=== PATIENT | male | born 1975 | race Two or more races ===

== ENCOUNTER 2023-12-01 10:08 | Outpatient (OUT) | payer OTHER, SELFPAY ==
--- NOTE | 2023-12-01 10:19 | ECG_ITS ---
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
== END 2023-12-01 10:09 | disposition home or self-care (01) ==
LOC: PST 10:15
PROVIDERS: PCP Internal Medicine; Visit Provider Orthopaedic Surgery
DX: Z01.810 Encounter for preprocedural cardiovascular examination (principal); G56.01 Carpal tunnel syndrome, right upper limb
CPT/HCPCS: 93005

== ENCOUNTER 2023-12-04 11:48 | Day surgery (SDC) | payer OTHER, SELFPAY ==
[2023-12-01 10:43] VITALS: BP 152/84; PULSE 79; RESP 16; TEMP 36.2; O2SAT 96; BMI 42.6
[2023-12-04 11:59] VITALS: BP 176/77; PULSE 69; RESP 16; TEMP 36.2; O2SAT 99; BMI 42.5
--- OUTSIDE RECORDS SUMMARY | 2023-12-04 12:00 | XMS_ITS | CCD ---
Author Name Unknown Address [address] [place] [id number] Organization [facility] Care Team Providers Care [employer] Sergeant Name Role Phone Caleb Winn Primary Care Physician UnavailJuventino Allen Unavailable Unavailable Mary Ellen Agrawal Primary Care Physician Nadine Lucia, Chauncey Cesar Primary Care Physician Unavail able Pa, Caleb Perry Primary Care Physician Unavaila yvrose Mayorga, Chauncey Beth Primary Care Physician Kody Mayorga, Chauncey Beth Primary Care Physician Giselav dannyable Pa, Caleb Perry Primary Care Physician Unavaila yvrose Mayorga, Chauncey Beth Primary Care Physician Kody Winn, Caleb Perry Primary Care Physician Unavaila yvrose Winn, Caleb Perry Primary Care Physician Unavaila yvrose Winn, Caleb Perry Primary Care Physician Unavaila yvrose Quintana, Shea Live Unavailable Unavailable Ray, Shea Live Primary Care Physician Unavailab le Ray, Shea Live Primary Care Physician Unavailab le Ray, Shea Live Primary Care Physician Unavailab le Ray, Shea Live Primary Care Physician Unavailab le Ray, Shea Live Primary Care Physician Unavailab le Ray, Shea Live Primary Care Physician Unavailab le Ray, Shea Live Primary Care Physician Unavailab le Ray, Shea Live Primary Care Physician Unavailab le Maraino JUAREZ, Shea [place] Primary Care Unavailab radha WATKINS, Sophia Brambila Attending Davin Quintana MD, Shea [place] Primary Care Unavailab radha WATKINS, Sophia Brambila Attending Unavaila yvrose WATKINS, Sophia Brambila Attending Davin Quintana MD, Shea [place] Primary Care UnavailChani Combs Primary Care Physician Nadine chen Allergies Allergy Classification Reported Allergen(s) Allergy Type Date of Onset Reaction(s) Facility Penicillins (antibiotic) (1 source) Penicillins Drug Allergy [facility] (20 sources) Penicillins Allergy to substance (disorder) [facility] (5 sources) atorvastatin; Translations: [Lipitor] Drug Allergy myalgia [facility] (1 source) Penicillin; Translations: [penicillin] Drug Allergy [facility] Repository Medications Completed/Discontinued Medications Medication Drug Class(es) Dates Sig (Normalized) Sig (Original) allopurinol 300 mg oral tablet (20 sources) Xanthine Oxidase Inhibitor Start: 06-14-2023 take 1 tablet by mouth once daily allopurinol 300 mg tablet 06/14/2023 take 1 tablet (300 mg) by oral route once daily Start: 04-18-2022 take 1 tablet by alejandra th once daily allopurinol 300 mg tablet 04/18/2022 take 1 tablet (300 mg) by oral route once daily Start: 07-02-2021 take [address] [facility] twice daily allopurinol 100 mg tablet 07/02/2021 take 2 tablets (200 mg) by oral route 2 times per day Start: 05-06-2020 take 1 tablet by alejandra th once daily allopurinol 300 mg oral tablet 05/06/2020 take 1 tablet (300 mg) by oral route once daily Start: 01-08-2020 take 1 tablet by alejandra th once daily allopurinol 300 mg oral tablet 01/08/2020 take 1 tablet (300 mg) by oral route once daily Start: 11-20-2015 End: 09-01-2017 take 1 tablet by mouth once daily allopurinol 300 mg oral tablet 11/20/2015 09/01/2017 take 1 tablet (300 mg) by oral route once daily End: 01-06-2014 take 1 tablet by mouth once daily allopurinol 300 mg oral tablet 01/06/2014 take 1 tablet (300 mg) by oral route once daily PT HASN'T BEEN TAKING atorvastatin 40 mg oral tablet (20 sources) HMG-CoA Reductase Inhibitor End: 01-06-2014 take 1 tablet by mouth once daily Lipitor 40 mg oral tablet 01/06/2014 take 1 tablet (40 mg) by oral route once daily PT HASN'T BEEN TAKING cephalexin 500 mg oral capsule (20 sources) Cephalosporin Antibacterial Start: 12-16-2016 End: 09-01-2017 take 1 capsule by mouth three times daily Keflex 500 mg oral capsule 12/16/2016 09/01/2017 take 1 capsule by oral route 3 times a day ciprofloxacin 500 mg oral tablet (20 sources) Quinolone Antimicrobial Start: 06-05-2013 End: 06-12-2013 take 1 tablet by mouth every twelve hours Cipro 500 mg oral tablet 06/05/2013 06/12/2013 take 1 tablet (500 mg) by oral route every 12 hours for 7 days clobetasol propionate 0.5 mg/ml topical cream (6 sources) Corticosteroid Start: 06-26-2023 clobetasol 0.05 % topical cream 06/26/2023 apply a thin layer to the affected area(s) by topical route 2 times per day Start: 06-24-2022 clobetasol 0.0 5 % topical cream 06/24/2022 apply a thin layer to the affected area(s) by topical route 2 times per day colesevelam hydrochloride 3750 mg powder for oral suspension (13 sources) Bile Acid Sequestrant Start: 06-19-2020 End: 07-02-2021 take 120-240 mL by mouth once daily WelChol 3.75 gram oral powder in packet 06/19/2020 07/02/2021 take 1 packet (3.75 gram) dissolved in 120 to 240ml of water; stir and drink by oral route once daily with a meal for 30 days pt stopped per self escitalopram 10 mg oral tablet (20 sources) Serotonin Reuptake Inhibitor Start: 06-26-2023 take 1 tablet by mouth once daily escitalopram 10 mg tablet 06/26/2023 take 1 tablet by oral route daily Start: 06-24-2022 take 1 tablet by alejandra th once daily escitalopram 10 mg tablet 06/24/2022 take 1 tablet by oral route daily Start: 04-18-2022 take 1 tablet by alejandra th once daily escitalopram 5 mg tablet 04/18/2022 take 1 tablet (5 mg) by oral route once daily Start: 11-20-2015 End: 05-18-2016 take 1 tablet by mouth once daily Lexapro 10 mg oral tablet 11/20/2015 05/18/2016 take 1 tablet (10 mg) by oral route once daily for 30 days fenofibrate 160 mg oral tablet (10 sources) Peroxisome Proliferator Receptor alpha Agonist Start: 07-02-2021 End: 04-18-2022 take 1 tablet by mouth once daily fenofibrate 160 mg tablet 07/02/2021 04/18/2022 take 1 tablet (160 mg) by oral route once daily fluticasone propionate 0.5 mg/ml topical cream (20 sources) Corticosteroid Start: 06-26-2019 End: 06-19-2020 fluticasone propionate 0.05 % topical cream 06/26/2019 06/19/2020 apply to affected skinfolds by topical route QD for two weeks then weekends only Disp 60 Gram Tube halobetasol propionate 0.0005 mg/mg topical ointment (20 sources) Corticosteroid Start: 06-26-2019 End: 06-19-2020 halobetasol propionate 0.05 % topical ointment 06/26/2019 06/19/2020 apply a thin layer to the affected elbows and hands by topical route once daily for two weeks then weekends only Disp 50 Gram Tube indomethacin 50 mg oral capsule (20 sources) Nonsteroidal Anti-inflammatory Drug Start: 01-09-2017 End: 01-23-2017 take 1 capsule by mouth three times daily at mealtime indomethacin 50 mg oral capsule 01/09/2017 01/23/2017 take 1 capsule (50 mg) by oral route 3 times per day with food for 7 days Start: 03-17-2014 End: 04-28-2014 take 1 capsule by mouth once daily as needed indomethacin 50 mg oral capsule 03/17/2014 04/28/2014 one daily for 7 days as needed for gout flare meloxicam 15 mg oral tablet (20 sources) Nonsteroidal Anti-inflammatory Drug Start: 06-19-2020 End: 12-16-2020 take 1 tablet by mouth once daily meloxicam 15 mg oral tablet 06/19/2020 12/16/2020 take 1 tablet (15 mg) by oral route once daily for 30 days Start: 12-12-2019 End: 06-09-2020 take 1 tablet by mouth once daily meloxicam 15 mg oral tablet 12/12/2019 06/09/2020 take 1 tablet (15 mg) by oral route once daily for 30 days Start: 09-18-2019 End: 11-17-2019 take 1 tablet by mouth once daily meloxicam 15 mg oral tablet 09/18/2019 11/17/2019 take 1 tablet (15 mg) by oral route once daily for 30 days Start: 11-20-2015 End: 12-07-2016 take 1 tablet by mouth once daily Mobic 15 mg oral tablet 11/20/2015 12/07/2016 take 1 tablet (15 mg) by oral route once daily for 30 days methylPREDNISolone 4 mg oral tablet (12 sources) Corticosteroid Start: 08-27-2020 End: 02-22-2021 Medrol (Jorge) 4 mg oral tablets,dose pack 08/27/2020 02/22/2021 take by oral route as directed per package instructions omeprazole 40 mg delayed release oral capsule (20 sources) Proton Pump Inhibitor Start: 11-20-2015 End: 12-07-2016 take 1 capsule by mouth once daily before mealtime omeprazole 40 mg oral capsule,delayed release(DR/EC) 11/20/2015 12/07/2016 take 1 capsule (40 mg) by oral route once daily before a meal Start: 02-19-2015 End: 11-20-2015 take 2 capsules by mouth once daily omeprazole 20 mg oral capsule,delayed release(DR/EC) 02/19/2015 11/20/2015 TAKE TWO CAPSULES BY MOUTH EVERY DAY dose change End: 06-19-2020 take 1 tablet by mouth once daily Prilosec OTC 20 mg oral tablet,delayed release (DR/EC) 06/19/2020 take 1 tablet by oral route daily pimecrolimus 10 mg/ml topical cream (20 sources) Calcineurin Inhibitor Immunosuppressant Start: 06-26-2019 End: 06-19-2020 Elidel 1 % topical cream 06/26/2019 06/19/2020 apply a thin layer to the affected eyelids by topical route 2 times per day ; rub in gently and completely Disp 30 Gram Tube pravastatin sodium 10 mg oral tablet (5 sources) HMG-CoA Reductase Inhibitor Start: 06-26-2023 take 1 tablet by mouth once daily at bedtime pravastatin 10 mg tablet 06/26/2023 take 1 tablet (10 mg) by oral route once daily at bedtime Start: 08-04-2022 take 1 tablet by alejandra th once daily at bedtime pravastatin 10 mg tablet 08/04/2022 take 1 tablet (10 mg) by oral route once daily at bedtime rosuvastatin calcium 5 mg oral tablet (20 sources) HMG-CoA Reductase Inhibitor Start: 12-06-2017 End: 12-01-2018 take 1 tablet by mouth once daily Crestor 5 mg oral tablet 12/06/2017 12/01/2018 take 1 tablet (5 mg) by oral route once daily for 30 days Start: 11-20-2015 End: 09-01-2017 take 1 tablet by mouth once daily Crestor 5 mg oral tablet 11/20/2015 09/01/2017 TAKE ONE TABLET BY MOUTH ONCE A DAY Start: 01-06-2014 End: 03-17-2014 take 1 tablet by mouth once daily Crestor 5 mg oral tablet 01/06/2014 03/17/2014 take 1 tablet (5 mg) by oral route once daily for 30 days sulfamethoxazole 800 mg / trimethoprim 160 mg oral tablet (20 sources) Dihydrofolate Reductase Inhibitor Antibacterial, Sulfonamide Antimicrobial Start: 12-07-2016 End: 12-17-2016 take 1 tablet by mouth twice daily Bactrim DS 800-160 mg oral tablet 12/07/2016 12/17/2016 take 1 tablet by oral route 2 times per day for 10 days venlafaxine 75 mg oral tablet (20 sources) Serotonin and Norepinephrine Reuptake Inhibitor Start: 12-13-2020 End: 07-02-2021 take 1 capsule by mouth once daily at mealtime VENLAFAXINE HCL ER 75 MG CAP 12/13/2020 07/02/2021 TAKE ONE CAPSULE BY MOUTH DAILY WITH FOOD Start: 03-13-2020 End: 05-06-2020 take 1 capsule by mouth once daily at mealtime Effexor XR 37.5 mg oral capsule,extended release 24hr 03/13/2020 05/06/2020 take 1 capsule (37.5 mg) by oral route once daily with food 1 week then incr to 75mg Start: 03-13-2020 End: 10-17-2020 take 1 capsule by mouth once daily at mealtime Effexor XR 75 mg oral capsule,extended release 24hr 06/19/2020 10/17/2020 take 1 capsule (75 mg) by oral route once daily with food for 30 days Problems Active Problems Problem Classification Problem Date Documented Da te Episodic/Chronic Adjustment disorders (12 sources) Reaction to severe stress, unspecified Onset: 03-13-2020 Chronic Anxiety disorders (20 sources) Anxiety state, unspecified; Translations: [Anxiety disorder, unspecified] Onset: 11-20-2015 Chronic Diabetes mellitus without complication (11 sources) Type 2 diabetes mellitus; Translations: [Diabetes mellitus without mention of complication, type II or unspecified type, not stated as uncontrolled] Onset: 06-26-2023 Chronic Disorders of lipid metabolism (20 sources) Hyperlipidemia; Translations: [Other and unspecified hyperlipidemia] Onset: 01-03-2014 Chronic Esophageal disorders (20 sources) Esophageal reflux Onset: 01-06-2014 Chronic Gout and other crystal arthropathies (20 sources) Gout, unspecified; Translations: [Gout] Onset: 01-06-2014 Chronic Mood disorders (15 sources) Depressive disorder, not elsewhere classified; Translations: [Major depressive disorder, single episode, unspecified] Onset: 03-13-2020 Chronic Other connective tissue disease (13 sources) Pain in left arm Onset: 11-20-2015 Episodic Other connective tissue disease (1 source) Pain in right arm Onset: 11-01-2023 Episodic Other inflammatory condition of skin (20 sources) Other psoriasis Onset: 10-13-2014 Chronic Other inflammatory condition of skin (20 sources) Psoriasis, unspecified Onset: 06-26-2019 Chronic Other inflammatory condition of skin (6 sources) Psoriasis; Translations: [Other psoriasis] Onset: 06-24-2022 Chronic Other nervous system disorders (1 source) Other disturbances of skin sensation Onset: 11-01-2023 Episodic Other nutritional; endocrine; and metabolic disorders (14 sources) Body Mass Index 40.0-44.9, adult Onset: 02-21-2019 Chronic Other nutritional; endocrine; and metabolic disorders (20 sources) Obesity, unspecified Onset: 10-13-2014 Chronic Other nutritional; endocrine; and metabolic disorders (20 sources) Body mass index (BMI) 40.0-44.9, adult Onset: 02-21-2019 Chronic Other nutritional; endocrine; and metabolic disorders (20 sources) Obesity, unspecified Onset: 06-19-2019 Chronic Past or Other Problems Problem Classification Problem Date Documented Date Episodic/Chronic Administrative/social admission (4 sources) Other psychological or physical stress, not elsewhere classified Onset: 03-13-2020 Episodic Allergic reactions (20 sources) Contact dermatitis and other eczema, unspecified cause; Translations: [Unspecified contact dermatitis, unspecified cause] Onset: 09-27-2017 Episodic Diabetes mellitus without complication (20 sources) Impaired fasting glycemia; Translations: [Impaired fasting glucose] Onset: 01-13-2022 Episodic Mood disorders (1 source) Major depressive disorder, single episode, unspecified Onset: 03-13-2020 Other circulatory disease (10 sources) Nevus, non-neoplastic Onset: 06-26-2019 Episodic Other circulatory disease (12 sources) Nevus, non-neoplastic Onset: 06-26-2019 Episodic Other connective tissue disease (14 sources) Pain in limb Onset: 11-20-2015 Episodic Other connective tissue disease (12 sources) Personal history of other diseases of the musculoskeletal system and connective tissue Onset: 02-22-2021 Episodic Other lower respiratory disease (4 sources) Other respiratory abnormalities Onset: 03-13-2020 Episodic Other lower respiratory disease (20 sources) Snoring Onset: 03-13-2020 Episodic Other non-traumatic joint disorders (20 sources) Effusion of joint, site unspecified Onset: 03-17-2014 Episodic Other non-traumatic joint disorders (20 sources) Pain in joint, lower leg Onset: 03-17-2014 Episodic Other non-traumatic joint disorders (16 sources) Effusion of joint, lower leg Onset: 09-18-2019 Episodic Other non-traumatic joint disorders (20 sources) Pain in unspecified knee Onset: 09-01-2017 Episodic Other non-traumatic joint disorders (12 sources) Pain in unspecified joint Onset: 02-22-2021 Episodic Other non-traumatic joint disorders (20 sources) Pain in right knee Onset: 09-18-2019 Episodic Other non-traumatic joint disorders (20 sources) Effusion, unspecified knee Onset: 09-18-2019 Episodic Other upper respiratory infections (20 sources) Acute maxillary sinusitis; Translations: [Acute maxillary sinusitis, unspecified] Onset: 12-07-2016 Episodic Residual codes; unclassified (12 sources) Sleep disorder, unspecified Onset: 02-22-2021 Episodic Results Test Name Value Interpretation Reference Range Facility Sleep Medicine Office/Clinic Noteon 10-23-2023 Sleep Medicine Office/Clinic Note Chief Complaint Routine CPAP follow up History of Present Illness Patient is a pleasant 48-year-old male who presents for routine CPAP follow-up with a diagnosis of chronic obstructive sleep apnea. He reports no issues with his machine or settings at this time. He is using a fullface mask without significant leakage. Patient is in bed around 11 PM, falling asleep within minutes and waking up at 6:30 AM feeling refreshed. He denies any nighttime awakenings. A clinical polysomnogram, 01/20/2010, established a significant degree of ABDIAZIZ with an overall AHI: 6.4, supine AHI 118.6, REM AHI: 16.5 and an oxygen desaturation of 84%. AMITA ZHENG Summary Report Date of : 1975 Setup Date: 04/01/2021 Donato DreamStation 2 Auto CPAP Care Eyelet Punch Operator Download 07/24/2023 - 10/21/2023 DreamStation 2 Auto CPAP Advanced [id number] Compliance Information 07/24/2023 - 10/21/2023 Compliance Summary 07/24/2023 - 10/21/2023 (90 days) Days with Device Usage 90 days Days without Device Usage 0 days Percent Days with Device Usage 100.0% Cumulative Usage 30 days 20 hrs. 48 mins. 6 secs. Maximum Usage (1 Day) 10 hrs. 56 mins. 55 secs. Average Usage (All Days) 8 hrs. 13 mins. 52 secs. Average Usage (Days Used) 8 hrs. 13 mins. 52 secs. Minimum Usage (1 Day) 4 hrs. 42 mins. 13 secs. Percent of Days with Usage >= 4 Hours 100.0% Percent of Days with Usage < 4 Hours 0.0% Date Range Total Blower Time 30 days 20 hrs. 56 mins. 31 secs. Average AHI 0.6 Auto-CPAP Summary Auto-CPAP Mean Pressure 7.0 cmH2O Auto-CPAP Peak Average Pressure 9.6 cmH2O Device Pressure <= 90% of Time 8.9 cmH2O Average Time in Large Leak Per Day 1 secs. Device Settings as of 10/21/2023 AutoCPAP - None Device Settings Device Mode Parameter Value Min Pressure 6 cmH2O Max Pressure 14 cmH2O Auto Off Off Auto On On Ramp+ Time 15 minutes Ramp+ Start Pressure 4.0 cmH2O Clearly is using CPAP adherently and with benefit [place]on Sleep Scale Sitting and Reading : Slight chance of dozing Watching TV : Slight chance of dozing Sitting Inactive in a Public Place : No chance of dozing Car Passenger For an Hour No Break : Slight chance of dozing Lying Down in Afternoon When Circumstances Permit : No chance of dozing Sitting and Talking to Someone : No chance of dozing Sitting Quiet After Lunch No Alcohol : No chance of dozing Stopped in Traffic For a Few Minutes : No chance of dozing Total A[place]on Sleepiness Scale Score : 3 [1] Review of Systems Constitutional symptoms: None Eyes: Without recent change in visual acuity Ears: Without hearing loss Nose/sinuses/throat: Without nasal or sinus congestion Cardiovascular: Without angina or palpitations Respiratory: Without cough, wheezing or dyspnea Gastrointestinal: Appetite is good, bowel habits are regular, and there is no complaints of reflux Genitourinary: Without dysuria or hematuria Neurologic: Without recurrent headaches or paresthesias Musculoskeletal: Without arthralgias or myalgias Hematologic: Without history of bleeding or anemia Dermatologic: Without complaint of rash or skin irritations Psychiatric: Well-adjusted at this stage of life Physical Exam Vitals & Measurements HR: 74 (Peripheral) RR: 19 BP: 133/78 SpO2: 95 HT: 169 cm WT: 119.9 kg WT: 119.9 kg (Dosing) BMI: 41.98 Patient is a pleasant, well-developed, well-nourished 48-year-old male who is not hypersomnolent during this exam Head: Normocephalic Eyes: PERRLA Ears: Symmetrical, canals patent Nose: Symmetrical, nares patent, nasal passages clear Throat: Low-lying soft palate and large dorsum of tongue. Mallampati class IV, Sarah class IV Neck: Symmetrical, supple, without adenopathy or thyroid enlargement Heart: Regular rate and rhythm Lungs: Clear to auscultation without crackles, rhonchi or wheezing Abdomen: Appears benign Extremities: Without cyanosis, clubbing, or significant edema Neurologic: Without lateralizing signs as the patient ambulates in the room Musculoskeletal: Endomorphic Dermatologic: No rashes on exposed surfaces Additional Vitals No qualifying data available. Assessment/Plan 1. ABDIAZIZ (obstructive sleep apnea) Improved on CPAP with excellent patient compliance and good clinical response. Patient is encouraged to continue wearing CPAP as prescribed on current settings. Follow-up in 1 year Medical Decision Making Chronic conditions NOT treated during this visit that affected my overall medical decision making: [none] Treatment plans discussed but not opted for at this time: [none] Prescribed medication that requires intensive monitoring for toxicity: [n/a] I have reviewed the patient?s medication list for medication interactions/contrai ndications and/or for upcoming procedures: [yes or no] Time Spent with the Patient I have personally spent [18] minutes on this date, directly related to today's patient vi (more content not included)... Normal [facility] Laboratory - Chemistry and C hemistry - challengeon 10-03-2023 Albumin [Mass/Vol] 4.50 g/dL Invalid Interpretation Code 3.7-5.0 [facility] Albumin/Globulin [Mass ratio] 1.5 {ratio} Invalid Interpretation Code 1.0-2.4 [facility] ALP [Catalytic activity/Vol] 48.0 U/L Invalid Interpretation Code 31-155 [facility] ALT [Catalytic activity/Vol] 21.0 U/L Invalid Interpretation Code 0-50 [facility] Anion gap [Moles/Vol] 12 mmol/L Invalid Interpretation Code 10-20 [facility] AST [Catalytic activity/Vol] 18.0 U/L Invalid Interpretation Code 0-40 [facility] Bilirubin [Mass/Vol] 0.70 mg/dL Invalid Interpretation Code 0.0-1.0 [facility] Calcium [Mass/Vol] 9.40 mg/dL Invalid Interpretation Code 8.5-10.8 [facility] Chloride [Moles/Vol] 99.0 mmol/L Invalid Interpretation Code 100-112 [facility] CO2 [Moles/Vol] 31.0 mmol/L Invalid Interpretation Code 23-30 [facility] Creatinine [Mass/Vol] 1.10 mg/dL Invalid Interpretation Code 0.5-1.5 [facility] Glucose [Mass/Vol] 130.0 mg/dL Invalid Interpretation Code 80-117 [facility] Potassium [Moles/Vol] 4.0 mmol/L Invalid Interpretation Code 3.5-5.3 [facility] Protein [Mass/Vol] 7.50 g/dL Invalid Interpretation Code 6.3-7.9 [facility] Sodium [Moles/Vol] 138.0 mmol/L Invalid Interpretation Code 135-148 [facility] Urea nitrogen [Mass/Vol] 16.0 mg/dL Invalid Interpretation Code 7-25 [facility] Urea nitrogen/Creatinin e [Mass ratio] 15 mg/mg Invalid Interpretation Code 6-20 [facility] Laboratory - Hematology and Cell countson 10-03-2023 HbA1c (Bld) [Mass fraction] 7.20 % Invalid Interpretation Code 4.3-6.3 [facility] No Panel Informationon 10-03 160.0 mg/dL Invalid Interpretation Code [facility] 82 Invalid Interpretation Code [facility] No Panel Informationon 06-22 Tobacco smoking status Non-Smoker Invalid Interpretation Code [facility] Laboratory - Chemistry and C hemistry - challengeon 06-21-2023 Albumin [Mass/Vol] 4.20 g/dL Invalid Interpretation Code 3.7-5.0 [facility] Albumin/Globulin [Mass ratio] 1.4 {ratio} Invalid Interpretation Code 1.0-2.4 [facility] ALP [Catalytic activity/Vol] 52.0 U/L Invalid Interpretation Code 31-155 [facility] ALT [Catalytic activity/Vol] 37.0 U/L Invalid Interpretation Code 0-50 [facility] Anion gap [Moles/Vol] 18 mmol/L Invalid Interpretation Code 10-20 [facility] AST [Catalytic activity/Vol] 31.0 U/L Invalid Interpretation Code 0-40 [facility] Bilirubin [Mass/Vol] 0.80 mg/dL Invalid Interpretation Code 0.0-1.0 [facility] Bilirubin Ql (U) Negative Invalid Interpretation Code Negative [employer] [facility] [employer] Calcium [Mass/Vol] 9.20 mg/dL Invalid Interpretation Code 8.5-10.8 [facility] Chloride [Moles/Vol] 99.0 mmol/L Invalid Interpretation Code 100-112 [facility] Cholesterol [Mass/Vol] 231.0 mg/dL Invalid Interpretation Code 0-200 [facility] Cholesterol in HDL [Mass/Vol] 34.0 mg/dL Invalid Interpretation Code 36-100 [facility] Cholesterol in LDL [Mass/Vol] 125.0 mg/dL Invalid Interpretation Code 0-130 [facility] Cholesterol in VLDL [Mass/Vol] 72.0 mg/dL Invalid Interpretation Code 0-39 [facility] Cholesterol.total/ Cholesterol in HDL [Mass ratio] 7 {ratio} Invalid Interpretation Code [facility] CO2 [Moles/Vol] 24.0 mmol/L Invalid Interpretation Code 23-30 [facility] Creatinine [Mass/Vol] 1.0 mg/dL Invalid Interpretation Code 0.5-1.5 [facility] Glucose [Mass/Vol] 180.0 mg/dL Invalid Interpretation Code 80-117 [facility] Ketones Ql (U) Negative Invalid Interpretation Code Negative [facility] pH (U) 5 [pH] Invalid Interpretation Code 5.0-9.0 [employer] [facility] [employer] Potassium [Moles/Vol] 4.10 mmol/L Invalid Interpretation Code 3.5-5.3 [facility] Protein [Mass/Vol] 7.30 g/dL Invalid Interpretation Code 6.3-7.9 [facility] Sodium [Moles/Vol] 137.0 mmol/L Invalid Interpretation Code 135-148 [facility] Specific gravity (U) [Rel density] 1.030 Invalid Interpretation Code 1.003-1.030 [facility] Triglyceride [Mass/Vol] 358.0 mg/dL Invalid Interpretation Code 30-150 [facility] Urea nitrogen [Mass/Vol] 19.0 mg/dL Invalid Interpretation Code 7-25 [facility] Urea nitrogen/Creatinin e [Mass ratio] 19 mg/mg Invalid Interpretation Code 6-20 [facility] Urobilinogen (U) [Mass/Vol] normal Invalid Interpretation Code normal [facility] - Hematology and Cell countson 06-21-2023 Erythrocyte distribution width (RBC) [Ratio] 12.80 % Invalid Interpretation Code 11.5-15.5 [facility] HbA1c (Bld) [Mass fraction] 8.50 % Invalid Interpretation Code 4.3-6.3 [facility] Hematocrit (Bld) [Volume fraction] 44.50 % Invalid Interpretation Code 37.8-51.0 [facility] Hemoglobin (Bld) [Mass/Vol] 15.40 g/dL Invalid Interpretation Code 12.6-17.0 [facility] Hemoglobin Ql (U) Negative Invalid Interpretation Code Negative [facility] MCH (RBC) [Entitic mass] 28.40 pg Invalid Interpretation Code 25.7-33.8 [facility] MCHC (RBC) [Mass/Vol] 34.60 g/dL Invalid Interpretation Code 32.0-36.0 [facility] MCV (RBC) [Entitic vol] 82.0 fL Invalid Interpretation Code 81.0-100.2 [facility] Platelet mean volume (Bld) [Entitic vol] 9.50 fL Invalid Interpretation Code 8.3-11.5 [facility] Platelets (Bld) [#/Vol] 220.0 10*3/uL Invalid Interpretation Code 150-400 [facility] RBC (Bld) [#/Vol] 5.430 10*6/uL Invalid Interpretation Code 4.34-5.61 [facility] WBC (Bld) [#/Vol] 5.80 10*3/uL Invalid Interpretation Code 3.9-10.3 [facility] Laboratory - Specimen inform ationon 06-21-2023 Clarity (U) Clear Invalid Interpretation Code Clear [facility] Collection time (Aylse) [Date/time] 8:10am Invalid Interpretation Code [facility] Color (U) vicente Invalid Interpretation Code yellow [facility] - Urinalysison Glucose Test strip (U) [Mass/Vol] Negative Invalid Interpretation Code Negative [facility] Leukocyte esterase Test strip Ql (U) Negative Invalid Interpretation Code Negative [facility] Nitrite Ql (U) Negative Invalid Interpretation Code Negative [facility] Protein Ql (U) 1+ Invalid Interpretation Code Negative [facility] No Panel Informationon 06-21 92 Invalid Interpretation Code [facility] 0-4 Invalid Interpretation Code 0-4 [facility] 2+ Invalid Interpretation Code slight [facility] Trace Invalid Interpretation Code none [facility] 197.0 mg/dL Invalid Interpretation Code [facility] No Panel Informationon 12-26 Body mass index (BMI) [Percentile] Per age and sex 0.1 {percentile} Invalid Interpretation Code [facility] [id number] Per age and sex 0.1 {percentile} Invalid Interpretation Code [facility] - Chemistry and C hemistry - challengeon 12-19-2022 Anion gap [Moles/Vol] 16 mmol/L Invalid Interpretation Code 10-20 [facility] Calcium [Mass/Vol] 9.40 mg/dL Invalid Interpretation Code 8.5-10.8 [facility] Chloride [Moles/Vol] 101.0 mmol/L Invalid Interpretation Code 100-112 [facility] Cholesterol [Mass/Vol] 215.0 mg/dL Invalid Interpretation Code 0-200 [facility] Cholesterol in HDL [Mass/Vol] 36.0 mg/dL Invalid Interpretation Code 36-100 [facility] Cholesterol in LDL [Mass/Vol] 126.0 mg/dL Invalid Interpretation Code 0-130 [facility] Cholesterol in VLDL [Mass/Vol] 53.0 mg/dL Invalid Interpretation Code 0-39 [facility] Cholesterol.total/ Cholesterol in HDL [Mass ratio] 6 {ratio} Invalid Interpretation Code [facility] CO2 [Moles/Vol] 29.0 mmol/L Invalid Interpretation Code 23-30 [facility] Creatinine [Mass/Vol] 1.0 mg/dL Invalid Interpretation Code 0.5-1.5 [facility] GFR/1.73 sq M.predicted among non-blacks MDRD (S/P/Bld) [Vol rate/Area] 79 mL/min/{1.73_m2} Invalid Interpretation Code [facility] Glucose [Mass/Vol] 124.0 mg/dL Invalid Interpretation Code 80-117 [facility] Potassium [Moles/Vol] 4.30 mmol/L Invalid Interpretation Code 3.5-5.3 [facility] Sodium [Moles/Vol] 142.0 mmol/L Invalid Interpretation Code 135-148 [facility] Triglyceride [Mass/Vol] 264.0 mg/dL Invalid Interpretation Code 30-150 [facility] Urea nitrogen [Mass/Vol] 17.0 mg/dL Invalid Interpretation Code 7-25 [facility] Urea nitrogen/Creatinin e [Mass ratio] 17 mg/mg Invalid Interpretation Code 6-20 [facility] - Hematology and Cell countson 12-19-2022 HbA1c (Bld) [Mass fraction] 6.60 % Invalid Interpretation Code 4.3-6.3 [facility] No Panel Informationon 12-19 143.0 mg/dL Invalid Interpretation Code [facility] Sleep Medicine Office/Clinic Noteon 11-02-2022 Sleep Medicine Office/Clinic Note Chief Complaint Routine CPAP follow up History of Present Illness Patient is a pleasant 47-year-old male presents for routine CPAP follow-up with a diagnosis of chronic obstructive sleep apnea. He reports no issues with his machine or settings at this time. He is using a full facemask without significant leakage. Patient is in bed around 10:30-11 PM, falling asleep within minutes and waking up at 7 AM feeling refreshed. He denies any nighttime awakenings. A clinical polysomnogram, 01/20/2010, established a significant degree of ABDIAZIZ with an overall AHI: 6.4 (supine AHI 118.6), REM AHI: 16.5 and an oxygen desaturation of 84%. AMITA ZHENG Summary Report Date of : 1975 Setup Date: 04/01/2021 [employer] DreamStation 2 Advanced CPAP Care Eyelet Punch Operator Download DreamStation 2 Auto CPAP Advanced [id number] ([id number]) [id number] Compliance Information 08/04/2022 - 11/01/2022 Compliance Summary 08/04/2022 - 11/01/2022 (90 days) Days with Device Usage 89 days Days without Device Usage 1 day Percent Days with Device Usage 98.9% Cumulative Usage 32 days 20 hrs. 18 mins. 58 secs. Maximum Usage (1 Day) 11 hrs. 49 mins. 29 secs. Average Usage (All Days) 8 hrs. 45 mins. 32 secs. Average Usage (Days Used) 8 hrs. 51 mins. 26 secs. Minimum Usage (1 Day) 4 hrs. 24 mins. 36 secs. Percent of Days with Usage >= 4 Hours 98.9% Percent of Days with Usage < 4 Hours 1.1% Date Range Total Blower Time 32 days 22 hrs. 6 mins. 12 secs. Average AHI 0.9 Auto-CPAP Summary Auto-CPAP Mean Pressure 8.0 cmH2O Auto-CPAP Peak Average Pressure 11.0 cmH2O Device Pressure <= 90% of Time 10.4 cmH2O Average Time in Large Leak Per Day 9 secs. Device Settings as of 11/01/2022 AutoCPAP - None Device Settings Device Mode Parameter Value Min Pressure 6 cmH2O Max Pressure 14 cmH2O Clearly is using CPAP with benefit. [place] Sleep Scale Sitting and Reading : No chance of dozing Watching TV : Slight chance of dozing Sitting Inactive in a Public Place : No chance of dozing Car Passenger For an Hour No Break : Moderate chance of dozing Lying Down in Afternoon When Circumstances Permit : Slight chance of dozing Sitting and Talking to Someone : No chance of dozing Sitting Quiet After Lunch No Alcohol : Slight chance of dozing Stopped in Traffic For a Few Minutes : No chance of dozing Total [place] Sleepiness Scale Score 2 : 5 [1] Review of Systems Constitutional symptoms: None Eyes: Without recent change in visual acuity Ears: Without hearing loss Nose/sinuses/throat: Without complaint of hoarseness, nasal or sinus congestion Cardiovascular: Without angina or palpitations Respiratory: Without cough, wheezing, sputum or dyspnea Gastrointestinal: Appetite is good, bowel habits are regular, and there is no complaints of reflux Genitourinary: Without dysuria or hematuria Neurologic: Without recurrent headaches, chronic pain or paresthesias Musculoskeletal: Without arthralgias or myalgias Endocrine: Without polydipsia or polyuria Hematologic: Without history of bleeding or anemia Immunologic: Without chronic or recurrent infection Dermatologic: Without complaint of rash or skin irritations Psychiatric: Well-adjusted at this stage of life Physical Exam Vitals & Measurements HR: 65 (Peripheral) RR: 17 BP: 127/86 SpO2: 95 HT: 170 cm WT: 119.9 kg WT: 119.9 kg (Dosing) BMI: 41.49 Patient is a pleasant, well-developed, well-nourished 47-year-old male who is not hypersomnolent during this exam Head: Normocephalic Eyes: PERRLA Ears: Symmetrical, canals patent Nose: Symmetrical, nares patent, nasal passages clear Throat: Low-lying soft palate and large dorsum of tongue. Mallampati class IV, Sarah class IV Neck: Symmetrical, supple, without adenopathy or thyroid enlargement Heart: Regular rate and rhythm Lungs: Clear to auscultation without crackles, rhonchi or wheezing Abdomen: Appears benign Extremities: Without cyanosis, clubbing, or significant edema Neurologic: Without lateralizing signs as the patient ambulates in the room Musculoskeletal: Endomorphic Dermatologic: No rashes on exposed surfaces Additional Vitals BP Position/Location: Sitting, Left arm Assessment/Plan 1. ABDIAZIZ (obstructive sleep apnea) Improved on CPAP with excellent patient compliance and good response. Patient is encouraged to continue wearing CPAP as prescribed on current settings. Follow-up in 1 year. Medical Decision Making Chronic conditions NOT treated during this visit that affected my overall medical decision making: [none] Treatment plans discussed but not opted for at this time: [none] Prescribed medication that requires intensive monitoring for toxicity: [n/a] I have reviewed the patient?s medication list for medication interactions/contrai ndications and/or for upcoming procedures: [yes] Time Spent with the Patient I have personally spent [18] minutes on this date, direct (more content not included)... Normal [facility] Laboratory - Chemistry and C hemistry - challengeon 07-13-2022 Albumin [Mass/Vol] 4.30 g/dL Invalid Interpretation Code 3.7-5.0 [facility] Albumin/Globulin [Mass ratio] 1.4 {ratio} Invalid Interpretation Code 1.0-2.4 [facility] ALP [Catalytic activity/Vol] 50.0 U/L Invalid Interpretation Code 31-155 [facility] ALT [Catalytic activity/Vol] 32.0 U/L Invalid Interpretation Code 0-50 [facility] Anion gap [Moles/Vol] 13 mmol/L Invalid Interpretation Code 10-20 [facility] AST [Catalytic activity/Vol] 23.0 U/L Invalid Interpretation Code 0-40 [facility] Bilirubin [Mass/Vol] 0.40 mg/dL Invalid Interpretation Code 0.0-1.0 [facility] Calcium [Mass/Vol] 9.20 mg/dL Invalid Interpretation Code 8.5-10.8 [facility] Chloride [Moles/Vol] 101.0 mmol/L Invalid Interpretation Code 100-112 [facility] Cholesterol [Mass/Vol] 238.0 mg/dL Invalid Interpretation Code 0-200 [facility] Cholesterol in HDL [Mass/Vol] 37.0 mg/dL Invalid Interpretation Code 36-100 [facility] Cholesterol in LDL [Mass/Vol] 160.0 mg/dL Invalid Interpretation Code 0-130 [facility] Cholesterol in VLDL [Mass/Vol] 41.0 mg/dL Invalid Interpretation Code 0-39 [facility] Cholesterol.total/ Cholesterol in HDL [Mass ratio] 6 {ratio} Invalid Interpretation Code [facility] CO2 [Moles/Vol] 28.0 mmol/L Invalid Interpretation Code 23-30 [facility] Creatinine [Mass/Vol] 1.0 mg/dL Invalid Interpretation Code 0.5-1.5 [facility] GFR/1.73 sq M.predicted among non-blacks MDRD (S/P/Bld) [Vol rate/Area] 80 mL/min/{1.73_m2} Invalid Interpretation Code [facility] Glucose [Mass/Vol] 116.0 mg/dL Invalid Interpretation Code 80-117 [facility] Potassium [Moles/Vol] 4.20 mmol/L Invalid Interpretation Code 3.5-5.3 [facility] Protein [Mass/Vol] 7.30 g/dL Invalid Interpretation Code 6.3-7.9 [facility] Sodium [Moles/Vol] 138.0 mmol/L Invalid Interpretation Code 135-148 [facility] Triglyceride [Mass/Vol] 204.0 mg/dL Invalid Interpretation Code 30-150 [facility] Urea nitrogen [Mass/Vol] 16.0 mg/dL Invalid Interpretation Code 7-25 [facility] Urea nitrogen/Creatinin e [Mass ratio] 16 mg/mg Invalid Interpretation Code 6-20 [facility] Laboratory - Hematology and Cell countson 07-13-2022 Erythrocyte distribution width (RBC) [Ratio] 12.80 % Invalid Interpretation Code 11.5-15.5 [facility] HbA1c (Bld) [Mass fraction] 6.30 % Invalid Interpretation Code 4.3-6.3 [facility] Hematocrit (Bld) [Volume fraction] 44.40 % Invalid Interpretation Code 37.8-51.0 [facility] Hemoglobin (Bld) [Mass/Vol] 15.30 g/dL Invalid Interpretation Code 12.6-17.0 [facility] MCH (RBC) [Entitic mass] 28.70 pg Invalid Interpretation Code 25.7-33.8 [facility] MCHC (RBC) [Mass/Vol] 34.50 g/dL Invalid Interpretation Code 32.0-36.0 [facility] MCV (RBC) [Entitic vol] 83.10 fL Invalid Interpretation Code 81.0-100.2 [facility] Platelet mean volume (Bld) [Entitic vol] 9.70 fL Invalid Interpretation Code 8.3-11.5 [facility] Platelets (Bld) [#/Vol] 207.0 10*3/uL Invalid Interpretation Code 150-400 [facility] RBC (Bld) [#/Vol] 5.340 10*6/uL Invalid Interpretation Code 4.34-5.61 [facility] WBC (Bld) [#/Vol] 5.50 10*3/uL Invalid Interpretation Code 3.9-10.3 [facility] No Panel Informationon 07-13 134.0 mg/dL Invalid Interpretation Code [facility] Laboratory - Chemistry and C hemistry - challengeon 06-20-2022 Albumin [Mass/Vol] 4.50 g/dL Invalid Interpretation Code 3.7-5.0 [facility] Albumin/Globulin [Mass ratio] 1.8 {ratio} Invalid Interpretation Code 1.0-2.4 [facility] ALP [Catalytic activity/Vol] 48.0 U/L Invalid Interpretation Code 31-155 [facility] ALT [Catalytic activity/Vol] 35.0 U/L Invalid Interpretation Code 0-50 [facility] Anion gap [Moles/Vol] 15 mmol/L Invalid Interpretation Code 10-20 [facility] AST [Catalytic activity/Vol] 27.0 U/L Invalid Interpretation Code 0-40 [facility] Bilirubin [Mass/Vol] 0.50 mg/dL Invalid Interpretation Code 0.0-1.0 [facility] Bilirubin Ql (U) Negative Invalid Interpretation Code Negative [facility] Calcium [Mass/Vol] 9.10 mg/dL Invalid Interpretation Code 8.5-10.8 [facility] Chloride [Moles/Vol] 99.0 mmol/L Invalid Interpretation Code 100-112 [facility] Cholesterol [Mass/Vol] 251.0 mg/dL Invalid Interpretation Code 0-200 [facility] Cholesterol in HDL [Mass/Vol] 36.0 mg/dL Invalid Interpretation Code 36-100 [facility] Cholesterol in LDL [Mass/Vol] 158.0 mg/dL Invalid Interpretation Code 0-130 [facility] Cholesterol in VLDL [Mass/Vol] 57.0 mg/dL Invalid Interpretation Code 0-39 [facility] Cholesterol.total/ Cholesterol in HDL [Mass ratio] 7 {ratio} Invalid Interpretation Code [facility] CO2 [Moles/Vol] 28.0 mmol/L Invalid Interpretation Code 23-30 [facility] Creatinine [Mass/Vol] 1.0 mg/dL Invalid Interpretation Code 0.5-1.5 [facility] GFR/1.73 sq M.predicted among non-blacks MDRD (S/P/Bld) [Vol rate/Area] 80 mL/min/{1.73_m2} Invalid Interpretation Code [facility] Glucose [Mass/Vol] 114.0 mg/dL Invalid Interpretation Code 80-117 [facility] Ketones Ql (U) Negative Invalid Interpretation Code Negative [facility] pH (U) 6 [pH] Invalid Interpretation Code 5.0-9.0 [facility] Potassium [Moles/Vol] 4.40 mmol/L Invalid Interpretation Code 3.5-5.3 [facility] Protein [Mass/Vol] 7.0 g/dL Invalid Interpretation Code 6.3-7.9 [facility] Sodium [Moles/Vol] 138.0 mmol/L Invalid Interpretation Code 135-148 [facility] Specific gravity (U) [Rel density] 1.025 Invalid Interpretation Code 1.003-1.030 [facility] Triglyceride [Mass/Vol] 285.0 mg/dL Invalid Interpretation Code 30-150 [facility] Urea nitrogen [Mass/Vol] 15.0 mg/dL Invalid Interpretation Code 7-25 [facility] Urea nitrogen/Creatinin e [Mass ratio] 15 mg/mg Invalid Interpretation Code 6-20 [facility] Urobilinogen (U) [Mass/Vol] normal Invalid Interpretation Code normal [facility] Laboratory - Hematology and Cell countson 06-20-2022 Erythrocyte distribution width (RBC) [Ratio] 13.50 % Invalid Interpretation Code 11.5-15.5 [facility] Hematocrit (Bld) [Volume fraction] 44.60 % Invalid Interpretation Code 37.8-51.0 [facility] Hemoglobin (Bld) [Mass/Vol] 14.90 g/dL Invalid Interpretation Code 12.6-17.0 [facility] Hemoglobin Ql (U) Negative Invalid Interpretation Code Negative [facility] MCH (RBC) [Entitic mass] 28.10 pg Invalid Interpretation Code 25.7-33.8 [facility] MCHC (RBC) [Mass/Vol] 33.40 g/dL Invalid Interpretation Code 32.0-36.0 [facility] MCV (RBC) [Entitic vol] 84.20 fL Invalid Interpretation Code 81.0-100.2 [facility] Platelet mean volume (Bld) [Entitic vol] 9.20 fL Invalid Interpretation Code 8.3-11.5 [facility] Platelets (Bld) [#/Vol] 222.0 10*3/uL Invalid Interpretation Code 150-400 [facility] RBC (Bld) [#/Vol] 5.30 10*6/uL Invalid Interpretation Code 4.34-5.61 [facility] WBC (Bld) [#/Vol] 5.50 10*3/uL Invalid Interpretation Code 3.9-10.3 [facility] - Specimen inform ationon 06-20-2022 Clarity (U) clear Invalid Interpretation Code Clear [facility] Collection time (Alyse) [Date/time] 8:30am Invalid Interpretation Code [facility] Color (U) yellow Invalid Interpretation Code yellow [facility] - Urinalysison Glucose Test strip (U) [Mass/Vol] Negative Invalid Interpretation Code Negative [facility] Leukocyte esterase Test strip Ql (U) Negative Invalid Interpretation Code Negative [facility] Nitrite Ql (U) Negative Invalid Interpretation Code Negative [facility] Protein Ql (U) Negative Invalid Interpretation Code Negative [facility] - Chemistry and C hemistry - challengeon 01-07-2022 Albumin [Mass/Vol] 4.70 g/dL Invalid Interpretation Code 3.7-5.0 [facility] Albumin/Globulin [Mass ratio] 1.9 {ratio} Invalid Interpretation Code 1.0-2.4 [facility] ALP [Catalytic activity/Vol] 54.0 U/L Invalid Interpretation Code 31-155 [facility] ALT [Catalytic activity/Vol] 33.0 U/L Invalid Interpretation Code 0-50 [facility] Anion gap [Moles/Vol] 18 mmol/L Invalid Interpretation Code 10-20 [facility] AST [Catalytic activity/Vol] 30.0 U/L Invalid Interpretation Code 0-40 [facility] Bilirubin [Mass/Vol] 0.60 mg/dL Invalid Interpretation Code 0.0-1.0 [facility] Calcium [Mass/Vol] 9.40 mg/dL Invalid Interpretation Code 8.5-10.8 [facility] Chloride [Moles/Vol] 99.0 mmol/L Invalid Interpretation Code 100-112 [facility] Cholesterol [Mass/Vol] 213.0 mg/dL Invalid Interpretation Code 0-200 [facility] Cholesterol in HDL [Mass/Vol] 33.0 mg/dL Invalid Interpretation Code 36-100 [facility] Cholesterol in LDL [Mass/Vol] 129.0 mg/dL Invalid Interpretation Code 0-130 [facility] Cholesterol in VLDL [Mass/Vol] 51.0 mg/dL Invalid Interpretation Code 0-39 [facility] Cholesterol.total/ Cholesterol in HDL [Mass ratio] 6 {ratio} Invalid Interpretation Code [facility] CO2 [Moles/Vol] 27.0 mmol/L Invalid Interpretation Code 23-30 [facility] Creatinine [Mass/Vol] 1.20 mg/dL Invalid Interpretation Code 0.5-1.5 [facility] GFR/1.73 sq M.predicted among non-blacks MDRD (S/P/Bld) [Vol rate/Area] 65 mL/min/{1.73_m2} Invalid Interpretation Code [email or web address] Glucose [Mass/Vol] 125.0 mg/dL Invalid Interpretation Code 80-117 [email or web address] Potassium [Moles/Vol] 4.10 mmol/L Invalid Interpretation Code 3.5-5.3 [facility] Protein [Mass/Vol] 7.20 g/dL Invalid Interpretation Code 6.3-7.9 [facility] Sodium [Moles/Vol] 140.0 mmol/L Invalid Interpretation Code 135-148 [email or web address] Triglyceride [Mass/Vol] 253.0 mg/dL Invalid Interpretation Code 30-150 [facility] Urea nitrogen [Mass/Vol] 16.0 mg/dL Invalid Interpretation Code 7-25 [facility] Urea nitrogen/Creatinin e [Mass ratio] 13 mg/mg Invalid Interpretation Code 6-20 [facility] Laboratory - Chemistry and C hemistry - challengeon 06-18-2021 Albumin [Mass/Vol] 4.60 g/dL Invalid Interpretation Code 3.7-4.5 [facility] Albumin/Globulin [Mass ratio] 1.6 {ratio} Invalid Interpretation Code 1.0-2.4 [facility] ALP [Catalytic activity/Vol] 46.0 U/L Invalid Interpretation Code 31-155 [facility] ALT [Catalytic activity/Vol] 20.0 U/L Invalid Interpretation Code 0-50 [facility] Anion gap [Moles/Vol] 16 mmol/L Invalid Interpretation Code 10-20 [facility] AST [Catalytic activity/Vol] 15.0 U/L Invalid Interpretation Code 0-40 [facility] Bilirubin [Mass/Vol] 0.80 mg/dL Invalid Interpretation Code 0.0-1.0 [facility] Bilirubin Ql (U) Negative Invalid Interpretation Code Negative [facility] Calcium [Mass/Vol] 9.60 mg/dL Invalid Interpretation Code 8.5-10.8 [facility] Chloride [Moles/Vol] 102.0 mmol/L Invalid Interpretation Code 100-112 [facility] Cholesterol [Mass/Vol] 238.0 mg/dL Invalid Interpretation Code 0-200 [facility] Cholesterol in HDL [Mass/Vol] 38.0 mg/dL Invalid Interpretation Code 36-100 [facility] Cholesterol in VLDL [Mass/Vol] 84.0 mg/dL Invalid Interpretation Code 0-39 [facility] Cholesterol.total/ Cholesterol in HDL [Mass ratio] 6 {ratio} Invalid Interpretation Code [facility] CO2 [Moles/Vol] 27.0 mmol/L Invalid Interpretation Code 23-30 [facility] Creatinine [Mass/Vol] 1.10 mg/dL Invalid Interpretation Code 0.5-1.5 [facility] GFR/1.73 sq M.predicted among non-blacks MDRD (S/P/Bld) [Vol rate/Area] 72 mL/min/{1.73_m2} Invalid Interpretation Code [facility] Glucose [Mass/Vol] 115.0 mg/dL Invalid Interpretation Code 80-117 [facility] Ketones Ql (U) Negative Invalid Interpretation Code Negative [facility] pH (U) 5 [pH] Invalid Interpretation Code 5.0-9.0 [facility] Potassium [Moles/Vol] 4.30 mmol/L Invalid Interpretation Code 3.5-5.3 [facility] Protein [Mass/Vol] 7.40 g/dL Invalid Interpretation Code 6.3-7.9 [facility] Sodium [Moles/Vol] 141.0 mmol/L Invalid Interpretation Code 135-148 [facility] Specific gravity (U) [Rel density] 1.020 Invalid Interpretation Code 1.003-1.030 [facility] Triglyceride [Mass/Vol] 421.0 mg/dL Invalid Interpretation Code 30-150 [facility] Urea nitrogen [Mass/Vol] 19.0 mg/dL Invalid Interpretation Code 7-25 [facility] Urea nitrogen/Creatinin e [Mass ratio] 17 mg/mg Invalid Interpretation Code 6-20 [facility] Urobilinogen (U) [Mass/Vol] normal Invalid Interpretation Code normal [facility] Laboratory - Hematology and Cell countson 06-18-2021 Erythrocyte distribution width (RBC) [Ratio] 13.60 % Invalid Interpretation Code 11.5-15.5 [facility] Hematocrit (Bld) [Volume fraction] 44.90 % Invalid Interpretation Code 37.8-51.0 [facility] Hemoglobin (Bld) [Mass/Vol] 15.30 g/dL Invalid Interpretation Code 12.6-17.0 [facility] Hemoglobin Ql (U) Negative Invalid Interpretation Code Negative [facility] MCH (RBC) [Entitic mass] 28.0 pg Invalid Interpretation Code 25.7-33.8 [facility] MCHC (RBC) [Mass/Vol] 34.10 g/dL Invalid Interpretation Code 32.0-36.0 [facility] MCV (RBC) [Entitic vol] 82.20 fL Invalid Interpretation Code 81.0-100.2 [facility] Platelet mean volume (Bld) [Entitic vol] 9.70 fL Invalid Interpretation Code 8.3-11.5 [facility] Platelets (Bld) [#/Vol] 219.0 10*3/uL Invalid Interpretation Code 150-400 [facility] RBC (Bld) [#/Vol] 5.460 10*6/uL Invalid Interpretation Code 4.34-5.61 [facility] WBC (Bld) [#/Vol] 6.20 10*3/uL Invalid Interpretation Code 3.9-10.3 [facility] Laboratory - Specimen inform ationon 06-18-2021 Clarity (U) clear Invalid Interpretation Code Clear [facility] Collection time (Alyse) [Date/time] 8:30am Invalid Interpretation Code [facility] Color (U) yellow Invalid Interpretation Code yellow [facility] - Urinalysison Glucose Test strip (U) [Mass/Vol] Negative Invalid Interpretation Code Negative [facility] Leukocyte esterase Test strip Ql (U) Negative Invalid Interpretation Code Negative [facility] Nitrite Ql (U) Negative Invalid Interpretation Code Negative [facility] Protein Ql (U) Negative Invalid Interpretation Code Negative [facility] C REACTIVE PROTEINon 021 CRP [Mass/Vol] 4.7 mg/L Normal 0.0-7.0 [facility] Comment on above: Performed By: #### [id number] #### [address] CYCLIC CITRULLINATED PEPTIDE [place] [id number] 03-11-2021 CYCLIC CIT PEP 4 Units Normal 0-19 [facility] Comment on above: Result Comment: INTE RPRETIVE INFORMATION: Cyclic Citrullinated Peptide Antibody, IgG 19 Units or less ................... Negative 20-39 Units ........................ Weak Positive 40-59 Units ........................ Moderate Positive 60 Units or greater ................ Strong Positive Anti-cyclic citrullinated peptide (anti-CCP), IgG antibodies are present in about 69-83 percent of patients with rheumatoid arthritis (RA) and have specificities of 93-95 percent. These autoantibodies may be present in the preclinical phase of disease, are associated with future RA development, and may predict radiographic joint destruction. Patients with weak positive results should be monitored and testing repeated. Performed By: [facility] [address] [place] [address] Tool Liaison: Mary Guevara MD HAND LEFT 3 [facility] 03-11-[address] [facility] Department of Radiology [address] [place] [id number] Patient Name: AMITA ZHENG : 1975 Sex: M Age: Race: White Pt. Location: [facility] Patient Status: O Ordered Date: 03/11/2021 10:55:00 AM Completed Date: 03/11/2021 10:59 AM Requesting Provider: ROBER MCDONOUGH Attending Provider: ROBER MCDONOUGH Report Copy To: Signs & Symptoms: M25.50 Pain in unspecified joint I10 History: Comments: Evaluate Exam: HAND LEFT 3 S HAND LEFT 3 S 03/11/2021 10:59 AM CLINICAL INDICATIONS: M25.50 Pain in unspecified joint I10. Gout TECHNOLOGIST COMMENTS: pain in bilateral hands and the right knee PROTOCOL: AP,Lateral and Oblique views were obtained. COMPARISON: None IMPRESSION: No soft tissue tophi are noted. Bone mineralization is normal. Anatomic alignment. No fracture or healing fracture is observed. Electronically signed: Precious Jean Baptiste. Transcribed by: [email or web address], User Resident: Electronically Signed by: PRECIOUS JEAN BAPTISTE @ 03/11/2021 11:19 AM Normal [facility] Comment on above: Order Comment: Evalu ate HAND RIGHT 3 Son HAND RIGHT 3 [facility] Department of Radiology [address] [place] [id number] Patient Name: AMITA ZHENG : 1975 Sex: M Age: Race: White Pt. Location: [facility] Patient Status: O Ordered Date: 03/11/2021 10:50:00 AM Completed Date: 03/11/2021 10:59 AM Requesting Provider: ROBER MCDONOUGH Attending Provider: ROBER MCDONOUGH Report Copy To: Signs & Symptoms: M25.50 Pain in unspecified joint I10 History: Comments: Evaluate Exam: HAND RIGHT 3 [facility] HAND RIGHT 3 [facility] 03/11/2021 10:59 AM CLINICAL INDICATIONS: M25.50 Pain in unspecified joint I10 pain. Gout TECHNOLOGIST COMMENTS: pain in bilateral hands and the right knee PROTOCOL: AP,Lateral and Oblique views were obtained. COMPARISON: None IMPRESSION: Bone mineralization is normal. No evidence of fracture or healing fracture. Irregularity along the distal portion the proximal phalanx right middle finger is appreciated. This may be posttraumatic in nature. Degenerative changes are noted involving the interphalangeal reticulation of the thumb. I do not see chondrocalcinosis. No acute osseous process or destructive process Electronically signed: Precious Jean Baptiste. Transcribed by: [email or web address], User Resident: Electronically Signed by: PRECIOUS JEAN BAPTISTE @ 03/11/2021 11:15 AM Normal [facility] Comment on above: Order Comment: Evalu ate KNEE RIGHT 3 [facility] KNEE RIGHT [address] [facility] Department of Radiology [address] [place] [phone] Patient Name: AMITA ZHENG : 1975 Sex: M Age: Race: White Pt. Location: 264 Patient Status: O Ordered Date: 03/11/2021 10:50:00 AM Completed Date: 03/11/2021 10:59 AM Requesting Provider: ROBER MCDONOUGH Attending Provider: ROBER MCDONOUGH Report Copy To: Signs & Symptoms: M10.9 Gout, unspecified I10 History: Comments: Evaluate Exam: KNEE RIGHT 3 [facility] KNEE RIGHT 3 [facility] 03/11/2021 10:59 AM CLINICAL INDICATIONS: M10.9 Gout, unspecified I10 TECHNOLOGIST COMMENTS: pain in bilateral hands and the right knee PROTOCOL: AP,Lateral and Tangential views were obtained. COMPARISON: None IMPRESSION: No fracture. Position the patella is normal. No chondrocalcinosis. No erosions. No acute osseous process. Mild lateral subluxation the patella is noted. Forming osteophyte. 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 No erosions Electronically signed: Precious Jean Baptiste. Transcribed by: [email or web address], User Resident: Electronically Signed by: PRECIOUS JEAN BAPTISTE @ 03/11/2021 11:14 AM Normal [facility] Comment on above: Order Comment: Evalu ate RENAL FUNCTION PANELon 03-11 Albumin [Mass/Vol] 4.6 g/dL Normal 3.5-5.7 [facility] Comment on above: Performed By: #### 4 [id number], [id number] #### [facility] [address] [place] [address], [facility] Calcium [Mass/Vol] 9.8 mg/dL Normal 8.6-10.3 [facility] Comment on above: Performed By: #### 4 5505, [id number] #### [facility] [address] [place] [address], [place] Chloride [Moles/Vol] 98 mmol/L Normal 98-107 [facility] Comment on above: Performed By: #### 4 5505, [id number] #### [facility] [address] [place] [address], [place] CO2 [Moles/Vol] 28 mmol/L Normal 21-31 [facility] Comment on above: Performed By: #### 4 5505, [id number] #### [facility] [address] [place] [address], [place] Creatinine [Mass/Vol] 0.99 mg/dL Normal 0.70-1.30 [facility] Comment on above: Performed By: #### 4 5505, [id number] #### [facility] [address] [place] [address], [place] GFR/1.73 sq M.predicted among blacks MDRD (S/P/Bld) [Vol rate/Area] mL/min/{1.73_m2} Normal >60 [facility] Comment on above: Performed By: #### 4 5505, [id number] #### [facility] [address] [place] [address], [place] GFR/1.73 sq M.predicted among non-blacks MDRD (S/P/Bld) [Vol rate/Area] mL/min/{1.73_m2} Normal >60 [facility] Comment on above: Performed By: #### 4 5505, 64405 #### [facility] [address] [place] [address], [place] Glucose [Mass/Vol] 95 mg/dL Normal 70-[address] [facility] Comment on above: Performed By: #### 4 5505, 71171 #### [facility] [address] [place] [id number], [facility] Phosphate [Mass/Vol] 3.5 mg/dL Normal 2.5-5.0 [facility] Comment on above: Performed By: #### 4 5506, 05340 #### [facility] [address] [place] [address], [facility] Potassium [Moles/Vol] 3.8 mmol/L Normal 3.5-5.1 [facility] Comment on above: Performed By: #### 4 5506, 57145 #### [facility] [address] [place] [address], [facility] Sodium [Moles/Vol] 136 mmol/L Normal 136-145 [facility] Comment on above: Performed By: #### 4 5506, 30463 #### [facility] [address] [place] [id number], [facility] Urea nitrogen [Mass/Vol] 21 mg/dL Normal 7-25 [facility] Comment on above: Performed By: #### 4 5506, 13654 #### [facility] [address] [place] [address], [facility] RHEUMATOID FACTOR SERUMon RA <20 Normal 0-20 [facility] Comment on above: Performed By: #### 6 1405, 50448 #### [facility] [address] [place] [id number], [facility] SEDIMENTATION RATEon 021 SED RATE 5 mm/hr Normal 0-10 [facility] Comment on above: Performed By: #### 5 6506 #### [facility] [address] [place] [id number], [facility] TB QUANTIFERON PLUSon 2020 MITOGEN MINUS NIL >10.00 Normal [facility] Comment on above: Performed By: #### 3 1592 #### [facility] [address] [place] [id number], [place] NIL 0.07 IU/mL Normal [facility] Comment on above: Performed By: #### 3 1592 #### [facility] [address] [place] [address], [facility] TB QUANTIFERON Negative Normal NEGATIVE [facility] Comment on above: Result Comment: Jonnathan tiferon TB Gold Interpretation (IU/mL): NEGATIVE: M. tuberculosis infection not likely. Nil: <=8.0 TB1 Antigen minus Nil (CB7BP-BYD): <0.35 OR >=0.35; and <25% of Nil value. TB2 Antigen minus Nil (CP8LG-MPH): <0.35 OR >=0.35; and <25% of Nil value. Mitogen minus Nil (DEBORAH-NIL): >=0.50 NOTE: Diagnosing or excluding tuberculosis disease, and assessing the probability of LTBI, requires a combination of epidemiological, historical, medical, and diagnostic findings that should be taken into account when interpreting QuantiFERON (TM)-TB Gold results. See general guidance on the diagnosis and treatment of TB disease and LTBI (https://www.cdc.gov/tb/publications/guidlines/default.htm Performed By: #### 3 1592 #### [facility] [address] [place] [address], [facility] TB1 AG 0.17 IU/mL Normal [facility] Comment on above: Performed By: #### 3 1592 #### [facility] [address] [place] [address], [facility] TB1 AG MINUS NIL 0.10 IU/mL Normal [facility] Comment on above: Performed By: #### 3 1592 #### [facility] [address] [place] [address], [facility] TB2 AG 0.11 IU/mL Normal [facility] Comment on above: Performed By: #### 3 1592 #### [facility] [address] [place] [address], [place] TB2 AG MINUS NIL 0.04 IU/mL Normal [facility] Comment on above: Performed By: #### 3 1592 #### [facility] [address] [place] [address], [facility] URIC ACID BLOODon 03-11-2021 Urate [Mass/Vol] 6.1 mg/dL Normal 4.4-7.6 [facility] Comment on above: Performed By: #### 4 5506, 06126 #### [facility] [address] [place] [address], [facility] Laboratory - Chemistry and C hemistry - challengeon 06-12-2020 Albumin [Mass/Vol] 4.20 g/dL Invalid Interpretation Code 3.7-4.5 [facility] Albumin/Globulin [Mass ratio] 1.6 {ratio} Invalid Interpretation Code 1.0-2.4 [facility] ALP [Catalytic activity/Vol] 45.0 U/L Invalid Interpretation Code 31-155 [facility] ALT [Catalytic activity/Vol] 12.0 U/L Invalid Interpretation Code 0-50 [facility] Anion gap [Moles/Vol] 16 mmol/L Invalid Interpretation Code 10-20 [facility] AST [Catalytic activity/Vol] 13.0 U/L Invalid Interpretation Code 0-40 [facility] Bilirubin [Mass/Vol] 0.50 mg/dL Invalid Interpretation Code 0.0-1.0 [facility] Calcium [Mass/Vol] 9.30 mg/dL Invalid Interpretation Code 8.5-10.8 [facility] Chloride [Moles/Vol] 101.0 mmol/L Invalid Interpretation Code 100-112 [facility] Cholesterol [Mass/Vol] 242.0 mg/dL Invalid Interpretation Code 0-200 [facility] Cholesterol in HDL [Mass/Vol] 36.0 mg/dL Invalid Interpretation Code 36-100 [facility] Cholesterol in LDL [Mass/Vol] 138.0 mg/dL Invalid Interpretation Code 0-130 [facility] Cholesterol in VLDL [Mass/Vol] 68.0 mg/dL Invalid Interpretation Code 0-39 [facility] Cholesterol.total/ Cholesterol in HDL [Mass ratio] 7 {ratio} Invalid Interpretation Code [facility] CO2 [Moles/Vol] 28.0 mmol/L Invalid Interpretation Code 23-30 [facility] Creatinine [Mass/Vol] 1.10 mg/dL Invalid Interpretation Code 0.5-1.5 [facility] GFR/1.73 sq M.predicted among non-blacks MDRD (S/P/Bld) [Vol rate/Area] 72 mL/min/{1.73_m2} Invalid Interpretation Code [facility] Glucose [Mass/Vol] 94.0 mg/dL Invalid Interpretation Code 80-117 [facility] Potassium [Moles/Vol] 4.50 mmol/L Invalid Interpretation Code 3.5-5.3 [facility] Protein [Mass/Vol] 6.90 g/dL Invalid Interpretation Code 6.3-7.9 [facility] Sodium [Moles/Vol] 140.0 mmol/L Invalid Interpretation Code 135-148 [facility] Triglyceride [Mass/Vol] 340.0 mg/dL Invalid Interpretation Code 30-150 [facility] Urea nitrogen [Mass/Vol] 25.0 mg/dL Invalid Interpretation Code 7-25 [facility] Urea nitrogen/Creatinin e [Mass ratio] 23 mg/mg Invalid Interpretation Code 6-20 [facility] Laboratory - Hematology and Cell countson 06-12-2020 Erythrocyte distribution width (RBC) [Ratio] 13.40 % Invalid Interpretation Code 11.5-15.5 [facility] Hematocrit (Bld) [Volume fraction] 46.40 % Invalid Interpretation Code 37.8-51.0 [facility] Hemoglobin (Bld) [Mass/Vol] 15.70 g/dL Invalid Interpretation Code 12.6-17.0 [facility] MCH (RBC) [Entitic mass] 28.20 pg Invalid Interpretation Code 25.7-33.8 [facility] MCHC (RBC) [Mass/Vol] 33.80 g/dL Invalid Interpretation Code 32.0-36.0 [facility] MCV (RBC) [Entitic vol] 83.50 fL Invalid Interpretation Code 81.0-100.2 [facility] Platelet mean volume (Bld) [Entitic vol] 9.50 fL Invalid Interpretation Code 8.3-11.5 [facility] Platelets (Bld) [#/Vol] 215.0 10*3/uL Invalid Interpretation Code 150-400 [facility] RBC (Bld) [#/Vol] 5.560 10*6/uL Invalid Interpretation Code 4.34-5.61 [facility] WBC (Bld) [#/Vol] 5.10 10*3/uL Invalid Interpretation Code 3.9-10.3 [facility] - Chemistry and C hemistry - challengeon 05-04-2020 Urate [Mass/Vol] 4.30 mg/dL Invalid Interpretation Code 2.4-7.0 [facility] 06-06-2019 Cholesterol [Mass/Vol] 217.0 mg/dL Invalid Interpretation Code 0-200 [facility] Cholesterol in HDL [Mass/Vol] 33.0 mg/dL Invalid Interpretation Code 36-100 [facility] Cholesterol in LDL [Mass/Vol] 106.0 mg/dL Invalid Interpretation Code 0-130 [facility] Triglyceride [Mass/Vol] 389.0 mg/dL Invalid Interpretation Code 30-150 [facility] Hematologyon 06-06-2019 Hematocrit (Bld) [Volume fraction] 44.10 % Invalid Interpretation Code 37.8-51.0 [facility] Hemoglobin (Bld) [Mass/Vol] 15.20 g/dL Invalid Interpretation Code 12.6-17.0 [facility] MCH (RBC) [Entitic mass] 28.0 pg Invalid Interpretation Code 25.7-33.8 [facility] MCV (RBC) [Entitic vol] 81.40 fL Invalid Interpretation Code 81.0-100.2 [facility] Platelets (Bld) [#/Vol] 223.0 10*3/uL Invalid Interpretation Code 150-400 [facility] RBC (Bld) [#/Vol] 5.420 10*6/uL Invalid Interpretation Code 4.34-5.61 [facility] WBC (Bld) [#/Vol] 5.90 10*3/uL Invalid Interpretation Code 3.9-10.3 [facility] Metabolic Panelon 06-06-2019 Albumin [Mass/Vol] 4.40 g/dL Invalid Interpretation Code 3.7-4.5 [facility] ALP [Catalytic activity/Vol] 46.0 U/L Invalid Interpretation Code 31-155 [facility] ALT [Catalytic activity/Vol] 23.0 U/L Invalid Interpretation Code 0-50 [facility] Anion gap [Moles/Vol] 16 mmol/L Invalid Interpretation Code 10-20 [facility] AST [Catalytic activity/Vol] 15.0 U/L Invalid Interpretation Code 0-40 [facility] Bilirubin [Mass/Vol] 0.70 mg/dL Invalid Interpretation Code 0.0-1.0 [facility] Calcium [Mass/Vol] 9.60 mg/dL Invalid Interpretation Code 8.5-10.8 [facility] Chloride [Moles/Vol] 102.0 mmol/L Invalid Interpretation Code 100-112 [facility] CO2 [Moles/Vol] 27.0 mmol/L Invalid Interpretation Code 23-30 [facility] Creatinine [Mass/Vol] 1.0 mg/dL Invalid Interpretation Code 0.5-1.5 [facility] GFR/1.73 sq M predicted among non-blacks MDRD (S/P/Bld) [Vol rate/Area] 81 mL/min/{1.73_m2} Invalid Interpretation Code [facility] Glucose [Mass/Vol] 115.0 mg/dL Invalid Interpretation Code 80-117 [facility] Potassium [Moles/Vol] 4.10 mmol/L Invalid Interpretation Code 3.5-5.3 [facility] Protein [Mass/Vol] 7.40 g/dL Invalid Interpretation Code 6.3-7.9 [facility] Sodium [Moles/Vol] 141.0 mmol/L Invalid Interpretation Code 135-148 [facility] Urea nitrogen [Mass/Vol] 20.0 mg/dL Invalid Interpretation Code 7-25 [facility] Urea nitrogen/Creatinin e [Mass ratio] 20 mg/mg Invalid Interpretation Code 6-20 [facility] Otheron 06-06-2019 Albumin/Globulin [Mass ratio] 1.5 {ratio} Invalid Interpretation Code 1.0-2.4 [facility] Cholesterol in VLDL [Mass/Vol] 78.0 mg/dL Invalid Interpretation Code 0-39 [facility] Cholesterol.total/ Cholesterol in HDL [Mass ratio] 7 {ratio} Invalid Interpretation Code [facility] Erythrocyte distribution width (RBC) [Ratio] 13.10 % Invalid Interpretation Code 11.5-15.5 [facility] MCHC (RBC) [Mass/Vol] 34.50 g/dL Invalid Interpretation Code 32.0-36.0 [facility] Platelet mean volume (Bld) [Entitic vol] 9.60 fL Invalid Interpretation Code 8.3-11.5 [facility] 02-15-2019 Cholesterol [Mass/Vol] 215.0 mg/dL Invalid Interpretation Code 0-200 [facility] Cholesterol in HDL [Mass/Vol] 34.0 mg/dL Invalid Interpretation Code 36-100 [facility] Cholesterol in LDL [Mass/Vol] 115.0 mg/dL Invalid Interpretation Code 0-130 [facility] Triglyceride [Mass/Vol] 331.0 mg/dL Invalid Interpretation Code 30-150 [facility] Hematologyon 02-15-2019 Hematocrit (Bld) [Volume fraction] 44.60 % Invalid Interpretation Code 37.8-51.0 [facility] Hemoglobin (Bld) [Mass/Vol] 15.20 g/dL Invalid Interpretation Code 12.6-17.0 [facility] MCH (RBC) [Entitic mass] 27.90 pg Invalid Interpretation Code 25.7-33.8 [facility] MCV (RBC) [Entitic vol] 81.80 fL Invalid Interpretation Code 81.0-100.2 [facility] Platelets (Bld) [#/Vol] 231.0 10*3/uL Invalid Interpretation Code 150-400 [facility] RBC (Bld) [#/Vol] 5.450 10*6/uL Invalid Interpretation Code 4.34-5.61 [facility] WBC (Bld) [#/Vol] 5.80 10*3/uL Invalid Interpretation Code 3.9-10.3 [facility] Metabolic Panelon 02-15-2019 Albumin [Mass/Vol] 4.30 g/dL Invalid Interpretation Code 3.7-4.5 [facility] ALP [Catalytic activity/Vol] 45.0 U/L Invalid Interpretation Code 31-155 [facility] ALT [Catalytic activity/Vol] 27.0 U/L Invalid Interpretation Code 0-50 [facility] Anion gap [Moles/Vol] 17 mmol/L Invalid Interpretation Code 10-20 [facility] AST [Catalytic activity/Vol] 19.0 U/L Invalid Interpretation Code 0-40 [facility] Bilirubin [Mass/Vol] 0.50 mg/dL Invalid Interpretation Code 0.0-1.0 [facility] Calcium [Mass/Vol] 9.80 mg/dL Invalid Interpretation Code 8.5-10.8 [facility] Chloride [Moles/Vol] 101 mmol/L Invalid Interpretation Code 100-112 [facility] CO2 [Moles/Vol] 29 mmol/L Invalid Interpretation Code 23-30 [facility] Creatinine [Mass/Vol] 1.10 mg/dL Invalid Interpretation Code 0.5-1.5 [facility] GFR/1.73 sq M predicted among non-blacks MDRD (S/P/Bld) [Vol rate/Area] 72 mL/min/{1.73_m2} Invalid Interpretation Code [facility] Glucose [Mass/Vol] 114.0 mg/dL Invalid Interpretation Code 80-117 [facility] Potassium [Moles/Vol] 4.7 mmol/L Invalid Interpretation Code 3.5-5.3 [facility] Protein [Mass/Vol] 7.50 g/dL Invalid Interpretation Code 6.3-7.9 [facility] Sodium [Moles/Vol] 142 mmol/L Invalid Interpretation Code 135-148 [facility] Urea nitrogen [Mass/Vol] 21.0 mg/dL Invalid Interpretation Code 7-25 [facility] Urea nitrogen/Creatinin e [Mass ratio] 19 mg/mg Invalid Interpretation Code 6-20 [facility] Otheron 02-15-2019 Albumin/Globulin [Mass ratio] 1.3 {ratio} Invalid Interpretation Code 1.0-2.4 [facility] Cholesterol in VLDL [Mass/Vol] 66.0 mg/dL Invalid Interpretation Code 0-39 [facility] Cholesterol.total/ Cholesterol in HDL [Mass ratio] 6 {ratio} Invalid Interpretation Code [facility] Erythrocyte distribution width (RBC) [Ratio] 13.0 % Invalid Interpretation Code 11.5-15.5 [facility] MCHC (RBC) [Mass/Vol] 34.10 g/dL Invalid Interpretation Code 32.0-36.0 [facility] Platelet mean volume (Bld) [Entitic vol] 9.60 fL Invalid Interpretation Code 8.3-11.5 [facility] 04-03-2018 Cholesterol [Mass/Vol] 246.0 mg/dL Invalid Interpretation Code 0-200 [facility] Cholesterol in HDL [Mass/Vol] 36.0 mg/dL Invalid Interpretation Code 36-100 [facility] Cholesterol in LDL [Mass/Vol] 136.0 mg/dL Invalid Interpretation Code 0-130 [facility] Triglyceride [Mass/Vol] 370.0 mg/dL Invalid Interpretation Code 30-150 [facility] Metabolic Panelon 04-03-2018 ALT [Catalytic activity/Vol] 17.0 U/L Invalid Interpretation Code 0-50 [facility] AST [Catalytic activity/Vol] 13.0 U/L Invalid Interpretation Code 0-40 [facility] Otheron 04-03-2018 Cholesterol in VLDL [Mass/Vol] 74.0 mg/dL Invalid Interpretation Code 0-39 [facility] Cholesterol.total/ Cholesterol in HDL [Mass ratio] 7 {ratio} Invalid Interpretation Code [facility] 11-22-2017 Cholesterol [Mass/Vol] 271.0 mg/dL Invalid Interpretation Code 0-200 [facility] Cholesterol in HDL [Mass/Vol] 43.0 mg/dL Invalid Interpretation Code 36-100 [facility] Cholesterol in LDL [Mass/Vol] 181.0 mg/dL Invalid Interpretation Code 0-130 [facility] Triglyceride [Mass/Vol] 236.0 mg/dL Invalid Interpretation Code 30-150 [facility] Hematologyon 11-22-2017 Hematocrit (Bld) [Volume fraction] 44.40 % Invalid Interpretation Code 37.8-51.0 [facility] Hemoglobin (Bld) [Mass/Vol] 15.20 g/dL Invalid Interpretation Code 12.6-17.0 [facility] MCH (RBC) [Entitic mass] 28.30 pg Invalid Interpretation Code 25.7-33.8 [facility] MCV (RBC) [Entitic vol] 82.70 fL Invalid Interpretation Code 82.0-98.4 [facility] Platelets (Bld) [#/Vol] 224.0 10*3/uL Invalid Interpretation Code 150-400 [facility] RBC (Bld) [#/Vol] 5.370 10*6/uL Invalid Interpretation Code 4.34-5.61 [facility] WBC (Bld) [#/Vol] 6.50 10*3/uL Invalid Interpretation Code 3.9-10.3 [facility] Metabolic Panelon 11-22-2017 Albumin [Mass/Vol] 4.30 g/dL Invalid Interpretation Code 3.7-4.5 [facility] ALP [Catalytic activity/Vol] 44.0 U/L Invalid Interpretation Code 31-155 [facility] ALT [Catalytic activity/Vol] 15.0 U/L Invalid Interpretation Code 0-50 [facility] Anion gap [Moles/Vol] 16 mmol/L Invalid Interpretation Code 10-20 [facility] AST [Catalytic activity/Vol] 13.0 U/L Invalid Interpretation Code 0-40 [facility] Bilirubin [Mass/Vol] 0.60 mg/dL Invalid Interpretation Code 0.0-1.0 [facility] Calcium [Mass/Vol] 9.30 mg/dL Invalid Interpretation Code 8.5-10.8 [facility] Chloride [Moles/Vol] 100 mmol/L Invalid Interpretation Code 100-112 [facility] CO2 [Moles/Vol] 30 mmol/L Invalid Interpretation Code 23-30 [facility] Creatinine [Mass/Vol] 1.10 mg/dL Invalid Interpretation Code 0.5-1.5 [facility] GFR/1.73 sq M predicted among non-blacks MDRD (S/P/Bld) [Vol rate/Area] 73 mL/min/{1.73_m2} Invalid Interpretation Code [facility] Glucose [Mass/Vol] 92.0 mg/dL Invalid Interpretation Code 80-117 [facility] Potassium [Moles/Vol] 4.1 mmol/L Invalid Interpretation Code 3.5-5.3 [facility] Protein [Mass/Vol] 7.50 g/dL Invalid Interpretation Code 6.3-7.9 [facility] Sodium [Moles/Vol] 142 mmol/L Invalid Interpretation Code 135-148 [facility] Urea nitrogen [Mass/Vol] 20.0 mg/dL Invalid Interpretation Code 7-25 [facility] Urea nitrogen/Creatinin e [Mass ratio] 18 mg/mg Invalid Interpretation Code 6-20 [facility] Otheron 11-22-2017 Albumin/Globulin [Mass ratio] 1.3 {ratio} Invalid Interpretation Code 1.0-2.4 [facility] Cholesterol in VLDL [Mass/Vol] 47.0 mg/dL Invalid Interpretation Code 0-39 [facility] Cholesterol.total/ Cholesterol in HDL [Mass ratio] 6 {ratio} Invalid Interpretation Code [facility] Erythrocyte distribution width (RBC) [Ratio] 13.40 % Invalid Interpretation Code 11.5-15.5 [facility] MCHC (RBC) [Mass/Vol] 34.20 g/dL Invalid Interpretation Code 32.0-36.0 [facility] Platelet mean volume (Bld) [Entitic vol] 7.90 fL Invalid Interpretation Code 7.4-10.4 [facility] 10-08-2014 Cholesterol [Mass/Vol] 251.0 mg/dL Invalid Interpretation Code 0-200 [facility] Cholesterol in HDL [Mass/Vol] 38.0 mg/dL Invalid Interpretation Code 36-100 [facility] Triglyceride [Mass/Vol] 446.0 mg/dL Invalid Interpretation Code 30-150 [facility] Metabolic Panelon 10-08-2014 ALT [Catalytic activity/Vol] 19.0 U/L Invalid Interpretation Code 0-50 [facility] AST [Catalytic activity/Vol] 17.0 U/L Invalid Interpretation Code 0-40 [facility] Otheron 10-08-2014 Cholesterol in VLDL [Mass/Vol] 89.0 mg/dL Invalid Interpretation Code 0-39 [facility] Cholesterol.total/ Cholesterol in HDL [Mass ratio] 7 {ratio} Invalid Interpretation Code [facility] 04-03-2014 Cholesterol [Mass/Vol] 169.0 mg/dL Invalid Interpretation Code 0-200 [facility] Cholesterol in HDL [Mass/Vol] 36.0 mg/dL Invalid Interpretation Code 36-100 [facility] Cholesterol in LDL [Mass/Vol] 84.0 mg/dL Invalid Interpretation Code 0-130 [facility] Triglyceride [Mass/Vol] 247.0 mg/dL Invalid Interpretation Code 30-150 [facility] Metabolic Panelon 04-03-2014 ALT [Catalytic activity/Vol] 23.0 U/L Invalid Interpretation Code 0-50 [facility] AST [Catalytic activity/Vol] 17.0 U/L Invalid Interpretation Code 0-40 [facility] Otheron 04-03-2014 Cholesterol in VLDL [Mass/Vol] 49.0 mg/dL Invalid Interpretation Code 0-39 [facility] Cholesterol.total/ Cholesterol in HDL [Mass ratio] 5 {ratio} Invalid Interpretation Code [facility] Urate [Mass/Vol] 5.20 mg/dL Invalid Interpretation Code 2.4-7.0 [facility] 12-27-2013 Cholesterol [Mass/Vol] 254.0 mg/dL Invalid Interpretation Code 0-200 [facility] Cholesterol in HDL [Mass/Vol] 35.0 mg/dL Invalid Interpretation Code 36-100 [facility] Triglyceride [Mass/Vol] 491.0 mg/dL Invalid Interpretation Code 30-150 [facility] Hematology[facility] 12-27-2013 Hematocrit (Bld) [Volume fraction] 45.90 % Invalid Interpretation Code 37.8-51.0 [facility] Hemoglobin (Bld) [Mass/Vol] 15.20 g/dL Invalid Interpretation Code 12.6-17.0 [facility] MCH (RBC) [Entitic mass] 27.40 pg Invalid Interpretation Code 25.7-33.8 [facility] MCV (RBC) [Entitic vol] 82.60 fL Invalid Interpretation Code 82.0-98.4 [facility] Platelets (Bld) [#/Vol] 226.0 10*3/uL Invalid Interpretation Code 139-350 [facility] RBC (Bld) [#/Vol] 5.550 10*6/uL Invalid Interpretation Code 4.34-5.61 [facility] WBC (Bld) [#/Vol] 5.20 10*3/uL Invalid Interpretation Code 3.9-10.3 [facility] Metabolic Panelon 12-27-2013 Albumin [Mass/Vol] 4.40 g/dL Invalid Interpretation Code 3.7-4.5 [facility] ALP [Catalytic activity/Vol] 42.0 U/L Invalid Interpretation Code 31-155 [facility] ALT [Catalytic activity/Vol] 26.0 U/L Invalid Interpretation Code 0-50 [facility] Anion gap [Moles/Vol] 16 mmol/L Invalid Interpretation Code 10-20 [facility] AST [Catalytic activity/Vol] 20.0 U/L Invalid Interpretation Code 0-40 [facility] Bilirubin [Mass/Vol] 0.80 mg/dL Invalid Interpretation Code 0.0-1.0 [facility] Calcium [Mass/Vol] 9.90 mg/dL Invalid Interpretation Code 8.5-10.8 [facility] Chloride [Moles/Vol] 100 mmol/L Invalid Interpretation Code 100-112 [facility] CO2 [Moles/Vol] 29 mmol/L Invalid Interpretation Code 23-30 [facility] Creatinine [Mass/Vol] 1.0 mg/dL Invalid Interpretation Code 0.5-1.5 [facility] GFR/1.73 sq M predicted among non-blacks MDRD (S/P/Bld) [Vol rate/Area] 83 mL/min/{1.73_m2} Invalid Interpretation Code [facility] Glucose [Mass/Vol] 99.0 mg/dL Invalid Interpretation Code 80-117 [facility] Potassium [Moles/Vol] 4.2 mmol/L Invalid Interpretation Code 3.5-5.3 [facility] Protein [Mass/Vol] 7.70 g/dL Invalid Interpretation Code 6.3-7.9 [facility] Sodium [Moles/Vol] 141 mmol/L Invalid Interpretation Code 135-148 [facility] Urea nitrogen [Mass/Vol] 18.0 mg/dL Invalid Interpretation Code 7-25 [facility] Urea nitrogen/Creatinin e [Mass ratio] 18 mg/mg Invalid Interpretation Code 6-20 [facility] Otheron 12-27-2013 Albumin/Globulin [Mass ratio] 1.3 {ratio} Invalid Interpretation Code 1.0-2.4 [facility] Cholesterol in VLDL [Mass/Vol] 98.0 mg/dL Invalid Interpretation Code 0-39 [facility] Cholesterol.total/ Cholesterol in HDL [Mass ratio] 7 {ratio} Invalid Interpretation Code [facility] Erythrocyte distribution width (RBC) [Ratio] 12.10 % Invalid Interpretation Code 11.5-15.5 [facility] MCHC (RBC) [Mass/Vol] 33.20 g/dL Invalid Interpretation Code 32.0-36.0 [facility] Platelet mean volume (Bld) [Entitic vol] 7.90 fL Invalid Interpretation Code 7.4-10.4 [facility] Vital Signs Date Time Vital Sign Value Performing Clinician Facility 11-01-2023 14:24-0500 Body height 168.91 cm [facility] 11-01-2023 14:24-0500 Body mass index (BMI) [Ratio] 42.69 kg/m2 [facility] 11-01-2023 14:24-0500 Body surface area Derived from formula 2.39 m2 [facility] 11-01-2023 14:24-0500 Body weight 121.79 kg Chani Anderson [facility] 11-01-2023 14:24-0500 Diastolic blood pressure 70 mm[Hg] Chani Anderson [facility] 11-01-2023 14:24-0500 Heart rate 84 /min Chani Justin [facility] 11-01-2023 14:24-0500 Systolic blood pressure 146 mm[Hg] Chani Anderson [facility] 10-11-2023 10:07-0500 Body height 168.91 cm [facility] 10-11-2023 10:07-0500 Body mass index (BMI) [Ratio] 42.5 kg/m2 [facility] 10-11-2023 10:07-0500 Body surface area Derived from formula 2.39 m2 [facility] 10-11-2023 10:07-0500 Body weight 121.25 kg [facility] 10-11-2023 10:07-0500 Diastolic blood pressure 82 mm[Hg] [facility] 10-11-2023 10:07-0500 Heart rate 68 /min [facility] 10-11-2023 10:07-0500 Systolic blood pressure 126 mm[Hg] [facility] 06-26-2023 10:15-0400 Body height 168.91 cm [facility] 06-26-2023 10:15-0400 Body mass index (BMI) [Ratio] 41.7 kg/m2 [facility] 06-26-2023 10:15-0400 Body surface area Derived from formula 2.36 m2 [facility] 06-26-2023 10:15-0400 Body weight 118.98 kg [facility] 06-26-2023 10:15-0400 Diastolic blood pressure 80 mm[Hg] [facility] 06-26-2023 10:15-0400 Heart rate 66 /min [facility] 06-26-2023 10:15-0400 Systolic blood pressure 130 mm[Hg] [facility] 12-26-2022 10:13-0500 Body height 168.91 cm [facility] 12-26-2022 10:13-0500 Body mass index (BMI) [Ratio] 42.45 kg/m2 [facility] 12-26-2022 10:13-0500 Body surface area Derived from formula 2.38 m2 [facility] 12-26-2022 10:13-0500 Body weight 121.11 kg [facility] 12-26-2022 10:13-0500 Body weight 0.1 {percentile} [facility] 12-26-2022 10:13-0500 Diastolic blood pressure 94 mm[Hg] [facility] 12-26-2022 10:13-0500 Heart rate 64 /min [facility] 12-26-2022 10:13-0500 Systolic blood pressure 136 mm[Hg] [facility] 08-04-2022 14:09-0400 Body height 168.91 cm Shea Mariano [facility] 08-04-2022 14:09-0400 Body mass index (BMI) [Ratio] 41.65 kg/m2 [facility] 08-04-2022 14:09-0400 Body surface area Derived from formula 2.36 m2 [facility] 08-04-2022 14:0400 Body weight 118.84 kg [facility] 08-04-2022 14:09-0400 Diastolic blood pressure 70 mm[Hg] [facility] 08-04-2022 14:09-0400 Heart rate 64 /min [facility] 08-04-2022 14:09-0400 Systolic blood pressure 124 mm[Hg] [facility] 06-24-2022 10:040 Body height 168.91 cm [facility] 06-24-2022 10:21-0400 Body mass index (BMI) [Ratio] 41.02 kg/m2 [facility] 06-24-2022 10:21-0400 Body surface area Derived from formula 2.34 m2 [facility] 06-24-2022 10:-040 Body weight 117.03 kg [facility] 06-24-2022 10:21-0400 Diastolic blood pressure 70 mm[Hg] Shea Ray [facility] 06-24-2022 10:21-0400 Heart rate 64 /min Shea Quintana [facility] 06-24-2022 10:21-0400 Systolic blood pressure 130 mm[Hg] Shea Quintana [facility] 05-18-2022 10:28-0400 Body height 168.91 cm Shea Ray [facility] 05-18-2022 10:28-0400 Body mass index (BMI) [Ratio] 41.26 kg/m2 Shea Mariano [facility] 05-18-2022 10:28-0400 Body surface area Derived from formula 2.35 m2 [facility] 05-18-2022 10:28-0400 Body weight 117.71 kg Shea Ray [facility] 05-18-2022 10:28-0400 Diastolic blood pressure 80 mm[Hg] Shea Mariano [facility] 05-18-2022 10:28-0400 Heart rate 60 /min Shea Mariano [facility] 05-18-2022 10:28-0400 Systolic blood pressure 134 mm[Hg] [facility] 04-18-2022 10:54-0400 Body height 168.91 cm [facility] 04-18-2022 10:54-0400 Body mass index (BMI) [Ratio] 41.34 kg/m2 [facility] 04-18-2022 10:54-0400 Body surface area Derived from formula 2.35 m2 [facility] 04-18-2022 10:54-0400 Body weight 117.94 kg [facility] 04-18-2022 10:54-0400 Diastolic blood pressure 86 mm[Hg] [facility] 04-18-2022 10:54-0400 Heart rate 84 /min [facility] 04-18-2022 10:54-0400 Systolic blood pressure 144 mm[Hg] [facility] 01-13-2022 11:30-0500 Body height 168.91 cm [facility] 01-13-2022 11:30-0500 Body mass index (BMI) [Ratio] 41.57 kg/m2 [facility] 01-13-2022 11:30-0500 Body surface area Derived from formula 2.36 m2 [facility] 01-13-2022 11:30-0500 Body weight 118.62 kg [facility] 01-13-2022 11:30-0500 Diastolic blood pressure 90 mm[Hg] [facility] 01-13-2022 11:30-0500 Heart rate 80 /min [facility] 01-13-2022 11:30-0500 Systolic blood pressure 142 mm[Hg] [facility] 07-02-2021 13:38-0400 Body height 168.91 cm [facility] 07-02-2021 13:38-0400 Body mass index (BMI) [Ratio] 40.7 kg/m2 Shea Quintana [facility] 07-02-2021 13:38-0400 Body surface area Derived from formula 2.33 m2 [facility] 07-02-2021 13:38-0400 Body weight 116.12 kg Shea Mariano [facility] 07-02-2021 13:38-0400 Diastolic blood pressure 78 mm[Hg] [facility] 07-02-2021 13:38-0400 Heart rate 76 /min [facility] 07-02-2021 13:38-0400 Systolic blood pressure 132 mm[Hg] [facility] 02-22-2021 10:12-0400 BMI (Body Mass Index) 40.09 kg/m2 Caleb Winn [facility] 02-22-2021 10:12-0400 Body weight 116.12 kg Caleb Winn [facility] 02-22-2021 10:12-0400 BP Diastolic 90 mm[Hg] Caleb [facility] 02-22-2021 10:12-0400 BP Systolic 140 mm[Hg] Caleb [facility] 02-22-2021 10:12-0400 BSA (Body Surface Area) 2.34 m2 Caleb [facility] 02-22-2021 10:12-0400 Height 170.18 cm Caleb [facility] 02-22-2021 10:12-0400 Pulse (Heart Rate) 78 /min Caleb Gooden [employer] 06-19-2020 10:33-0400 BMI (Body Mass Index) 38.49 kg/m2 Caleb [facility] [employer] [facility] 06-19-2020 10:330400 Body Temperature 97.6 [degF] [facility] [employer] [facility] 06-19-2020 10:33-0400 Body weight 108.18 kg Caleb [facility] [email or web address] 06-19-2020 10:33-0400 BP Diastolic 84 mm[Hg] Caleb [facility] [email or web address] 06-19-2020 10:33-0400 BP Systolic 128 mm[Hg] Caleb [employer] [facility] 06-19-2020 10:33-0400 BSA (Body Surface Area) 2.24 m2 Caleb [facility] [email or web address] 06-19-2020 10:33-0400 Height 167.64 cm Caleb [facility] [email or web address] 06-19-2020 10:33-0400 Pulse (Heart Rate) 72 /min Caleb Gooden [employer] [facility] 05-06-2020 11:24-0400 BMI (Body Mass Index) 38.98 kg/m2 Chauncey [facility] [employer] 05-06-2020 11:24-0400 Body Temperature 97.7 [degF] Chauncey Mayorga [facility] Gooden [employer] 05-06-2020 11:24-0400 Body weight 109.54 kg [facility] 05-06-2020 11:24-0400 BP Diastolic 80 mm[Hg] Chauncey Le [employer] 05-06-2020 11:24-0400 BP Systolic 144 mm[Hg] Chauncey Le [employer] 05-06-2020 11:24-0400 BSA (Body Surface Area) 2.26 m2 Chauncey [facility] [email or web address] 05-06-2020 11:24-0400 Height 167.64 cm Chauncey Le [facility] [facility] 05-06-2020 11:24-0400 Pulse (Heart Rate) 84 /min Chauncey [facility] [employer] 01-08-2020 10:43-0500 BMI (Body Mass Index) 42.13 kg/m2 Chauncey [facility] [email or web address] 01-08-2020 10:43-0500 Body weight 118.39 kg Chauncey Le [facility] [facility] 01-08-2020 10:43-0500 BP Diastolic 88 mm[Hg] Chuancey Le [employer] 01-08-2020 10:43-0500 BP Systolic 150 mm[Hg] Chauncey Le [facility] [facility] 01-08-2020 10:43-0500 BSA (Body Surface Area) 2.35 m2 Chauncey [facility] [email or web address] 01-08-2020 10:43-0500 Height 167.64 cm Chauncey Le [facility] [facility] 01-08-2020 10:43-0500 Pulse (Heart Rate) 68 /min Chauncey [facility] [employer] 09-18-2019 13:33-0500 BMI (Body Mass Index) 41.32 kg/m2 Caleb [facility] 09-18-2019 13:33-0500 Body weight 116.12 kg Caleb [facility] [employer] 09-18-2019 13:33-0500 BP Diastolic 88 mm[Hg] Caleb [facility] [email or web address] 09-18-2019 13:33-0500 BP Systolic 142 mm[Hg] Caleb Winn [facility] 09-18-2019 13:33-0500 BSA (Body Surface Area) 2.33 m2 [facility] 09-18-2019 13:33-0500 Height 167.64 cm Caleb Winn [facility] 09-18-2019 13:33-0500 Pulse (Heart Rate) 76 /min Caleb [facility] 06-19-2019 13:05-0400 BMI (Body Mass Index) 41.16 kg/m2 Mary Ellen [facility] 06-19-2019 13:05-0400 Body weight 115.67 kg Mary Ellen [facility] 06-19-2019 13:05-0400 BP Diastolic 80 mm[Hg] Mary Ellen Asoka 06-19-2019 13:05-0400 BP Systolic 124 mm[Hg] Mary Ellen Agrawal [facility] 06-19-2019 13:05-0400 BSA (Body Surface Area) 2.32 m2 Mary Ellen Asoka 06-19-2019 13:05-0400 Height 167.64 cm Mary Ellen Asoka 06-19-2019 13:05-0400 Pulse (Heart Rate) 72 /min Mary Ellen Gooden [employer] 02-21-2019 18:03-0400 BMI (Body Mass Index) 41.24 kg/m2 [facility] 02-21-2019 18:03-0400 Body weight 115.89 kg [facility] 02-21-2019 18:03-0400 BP Diastolic 82 mm[Hg] Caleb Winn [facility] 02-21-2019 18:03-0400 BP Systolic 140 mm[Hg] Caleb Winn [facility] 02-21-2019 18:03-0400 BSA (Body Surface Area) 2.32 m2 Caleb Winn [facility] 02-21-2019 18:03-0400 Height 167.64 cm Claeb Winn [facility] 02-21-2019 18:03-0400 Pulse (Heart Rate) 72 /min Caleb Gooden [employer] 02-21-2019 18:03-0400 Weight 115.89 kg Caleb Winn [facility] 12-06-2017 15:59-0500 BMI (Body Mass Index) 39.11 kg/m2 Caleb Winn [facility] 12-06-2017 15:59-0500 Body weight 109.91 kg Caleb Winn [facility] 12-06-2017 15:59-0500 BP Diastolic 80 mm[Hg] Caleb Winn [facility] 12-06-2017 15:59-0500 BP Systolic 138 mm[Hg] Caleb [employer] 12-06-2017 15:59-0500 BSA (Body Surface Area) 2.26 m2 Caleb Winn [facility] 12-06-2017 15:59-0500 Height 167.64 cm Caleb Winn [facility] 12-06-2017 15:59-0500 Pulse (Heart Rate) 80 /min Caleb Gooden [employer] 12-06-2017 15:59-0500 Weight 109.91 kg Caleb Winn [facility] 09-27-2017 17:54-0500 BMI (Body Mass Index) 37.53 kg/m2 Caleb Winn [facility] 09-27-2017 17:54-0500 Body weight 107.73 kg Caleb Winn [facility] 09-27-2017 17:54-0500 BP Diastolic 84 mm[Hg] Caleb Winn [facility] 09-27-2017 17:54-0500 BP Systolic 136 mm[Hg] Caleb Winn [facility] 09-27-2017 17:54-0500 BSA (Body Surface Area) 2.25 m2 Caleb Winn [facility] 09-27-2017 17:54-0500 Height 169.42 cm Caleb Winn [facility] 09-27-2017 17:54-0500 Pulse (Heart Rate) 84 /min Calebimmanuel Gooden [employer] 09-27-2017 17:54-0500 Weight 107.73 kg Caleb Winn [facility] 09-01-2017 17:15-0400 BMI (Body Mass Index) 37.85 kg/m2 Caleb Winn [facility] 09-01-2017 17:15-0400 Body weight 108.64 kg [facility] 09-01-2017 17:15-0400 BP Diastolic 78 mm[Hg] Caleb Winn [facility] 09-01-2017 17:15-0400 BP Systolic 124 mm[Hg] Caleb Winn [facility] 09-01-2017 17:15-0400 BSA (Body Surface Area) 2.26 m2 Caleb Winn [facility] 09-01-2017 17:15-0400 Height 169.42 cm Caleb Winn [facility] 09-01-2017 17:15-0400 Pulse (Heart Rate) 72 /min Caleb [employer] 09-01-2017 17:15-0400 Weight 108.64 kg Caleb Winn [facility] 12-07-2016 11:01-0500 BMI (Body Mass Index) 37.06 kg/m2 Caleb Winn [facility] 12-07-2016 11:01-0500 Body Temperature 97.2 [degF] Caleb Winn [facility] 12-07-2016 11:01-0500 Body weight 106.37 kg Caleb Winn [facility] 12-07-2016 11:01-0500 BP Diastolic 74 mm[Hg] Caleb [facility] 12-07-2016 11:01-0500 BP Systolic 122 mm[Hg] [employer] 12-07-2016 11:010500 BSA (Body Surface Area) 2.24 m2 Caleb Winn [facility] 12-07-2016 11:010500 Height 169.42 cm [facility] 12-07-2016 11:01-0500 Pulse (Heart Rate) 72 /min Caleb Gooden [employer] 12-07-2016 11:01-0500 Weight 106.37 kg [facility] 11-20-2015 11:19-0500 BMI (Body Mass Index) 39.11 kg/m2 [facility] 11-20-2015 11:19-0500 Body weight 111.59 kg [facility] 11-20-2015 11:19-0500 BP Diastolic 80 mm[Hg] Caleb Winn [facility] 11-20-2015 11:19-0500 BP Systolic 130 mm[Hg] Caleb Winn [facility] 11-20-2015 11:19-0500 BSA (Body Surface Area) 2.29 m2 Caleb Winn [facility] 11-20-2015 11:19-0500 Height 168.91 cm Caleb Winn [facility] 11-20-2015 11:19-0500 Pulse (Heart Rate) 76 /min Caleb Gooden [employer] 11-20-2015 11:19-0500 Weight 111.59 kg Caleb Winn [facility] 10-13-2014 11:03-0500 BMI (Body Mass Index) 39.75 kg/m2 [facility] 10-13-2014 11:030500 Body weight 113.4 kg Caleb [facility] [email or web address] 10-13-2014 11:03-0500 BP Diastolic 84 mm[Hg] Caleb Winn [facility] 10-13-2014 11:03-0500 BP Systolic 116 mm[Hg] Caleb Winn [facility] 10-13-2014 11:03-0500 BSA (Body Surface Area) 2.31 m2 Caleb Winn [facility] 10-13-2014 11:03-0500 Height 168.91 cm Caleb Winn [facility] 10-13-2014 11:03-0500 Pulse (Heart Rate) 76 /min Caleb Gooden [facility] 10-13-2014 11:03-0500 Weight 113.4 kg [facility] 04-09-2014 17:29-0400 BMI (Body Mass Index) 38.63 kg/m2 Caleb Winn [facility] 04-09-2014 17:29-0400 Body weight 110.22 kg Caleb Winn [facility] 04-09-2014 17:29-0400 BP Diastolic 74 mm[Hg] Caleb Winn [facility] 04-09-2014 17:29-0400 BP Systolic 110 mm[Hg] Caleb Winn [facility] 04-09-2014 17:29-0400 BSA (Body Surface Area) 2.27 m2 [employer] 04-09-2014 17:290400 Height 168.91 cm [facility] 04-09-2014 17:29-0400 Pulse (Heart Rate) 84 /min Caleb Gooden [employer] 04-09-2014 17:290400 Weight 110.22 kg [facility] 03-17-2014 13:13-0400 BMI (Body Mass Index) 39.43 kg/m2 [facility] 03-17-2014 13:13-0400 Body weight 112.49 kg [facility]aleb [facility] [employer] 03-17-2014 13:13-0400 BP Diastolic 82 mm[Hg] [facility] [employer] 03-17-2014 13:13-0400 BP Systolic 138 mm[Hg] [facility] [employer] 03-17-2014 13:13-0400 BSA (Body Surface Area) 2.3 m2 [facility] [employer] 03-17-2014 13:130400 Height 168.91 cm [facility] [employer] [employer] 03-17-2014 13:13-0400 Pulse (Heart Rate) 84 /min Caleb Gooden [employer] 03-17-2014 13:130400 Weight 112.49 kg Caleb Winn [facility] 01-06-2014 17:34-0500 BMI (Body Mass Index) 39.91 kg/m2 Caleb Winn [facility] 01-06-2014 17:34-0500 Body weight 113.85 kg Caleb Winn [facility] 01-06-2014 17:34-0500 BP Diastolic 82 mm[Hg] Caleb Winn [facility] 01-06-2014 17:34-0500 BP Systolic 134 mm[Hg] Caleb Winn [facility] 01-06-2014 17:34-0500 BSA (Body Surface Area) 2.31 m2 Caleb [facility] 01-06-2014 17:34-0500 Height 168.91 cm Caleb [facility] 01-06-2014 17:34-0500 Pulse (Heart Rate) 80 /min Caleb Winn [facility] 01-06-2014 17:34-0500 Weight 113.85 kg Caleb [facility] 06-05-2013 18:00-0400 BMI (Body Mass Index) 38.37 kg/m2 Caleb [facility] 06-05-2013 18:00-0400 Body weight 111.13 kg Caleb [facility] 06-05-2013 18:00-0400 BP Diastolic 78 mm[Hg] [employer] 06-05-2013 18:00-0400 BP Systolic 132 mm[Hg] [employer] 06-05-2013 18:00-0400 BSA (Body Surface Area) 2.29 m2 [employer] 06-05-2013 18:00-0400 Height 170.18 cm [employer] 06-05-2013 18:00-0400 Pulse (Heart Rate) 80 /min Caleb Winn [facility] 06-05-2013 18:00-0400 Weight 111.13 kg Caleb Winn [facility] Encounters Encounter Date Encounter Type Care Provider Facility Start: 11-01-2023 [facility] Chani Oglesby rne Other [facility] Start: 10-23-2023 End: 10-24-2023 ambulatory Shea Quintana MD Facility:[facility] Start: 10-11-2023 Office outpatient vi sit 25 minutes Shea J Ray Other [facility] Start: 10-03-2023 Lab Shea J Ray Other [facility] Start: 06-26-2023 Patient encounter procedure Shea Quintana [facility] Start: 06-26-2023 Periodic preventive med est patient 40-64yrs Shea J Ray Other [facility] Start: 06-21-2023 Lab Shea J Ray Other [facility] Start: 12-26-2022 Office outpatient vi sit 25 minutes Shea J Ray Other [facility] Start: 12-19-2022 Lab Shea J Ray Other [facility] Start: 11-02-2022 End: 11-03-2022 ambulatory Shea Quintana MD Facility:[facility] Start: 08-04-2022 Office outpatient vi sit 25 minutes Shea J Ray Other [facility] Start: 07-20-2022 Office Services Shea J Ray Other [facility] Start: 07-13-2022 Lab Shea J Ray Other [facility] Start: 06-24-2022 Encounter for genera l adult medical examination without abnormal findings Shea Quintana [facility] Start: 06-24-2022 Patient encounter procedure Shea Quintana [facility] Start: 06-24-2022 Periodic preventive med est patient 40-64yrs Shea J Ray Other [facility] Start: 06-20-2022 Lab Shea J Ray Other [facility] Start: 06-07-2022 Encounter for genera l adult medical examination without abnormal findings Shea Quintana [facility] Start: 05-18-2022 Office outpatient vi sit 15 minutes Shea J Ray Other [facility] Start: 04-18-2022 Office outpatient vi sit 15 minutes Shea J Ray Other [facility] Start: 01-13-2022 Office outpatient vi sit 15 minutes Shea J Ray Other [facility] Start: 01-07-2022 Lab Shea J Ray Other [facility] Start: 07-02-2021 Patient encounter procedure Shea Quintana [facility] Start: 07-02-2021 Periodic preventive med est patient 40-64yrs Shea Calos Ray Other [facility] Start: 06-18-2021 End: 06-18-2021 Lab Shea J Ray Other [facility] Start: 05-25-2021 Encounter for genera l adult medical examination without abnormal findings Caleb Winn [facility] Start: 02-22-2021 Office outpatient vi sit 15 minutes Caleb Winn Other [facility] Start: 06-19-2020 Patient encounter procedure Caleb Winn [facility] Start: 06-19-2020 Periodic preventive med est patient 40-64yrs Calebimmanuel Winn Other [facility] Start: 06-12-2020 Lab Mark Becerra Other [facility] Start: 05-06-2020 Office outpatient vi sit 15 minutes Chauncey Mayorga Other [facility] Start: 05-04-2020 Lab Chauncey puga Other [facility] Start: 03-13-2020 Office outpatient vi sit 15 minutes Caleb Winn Other [facility] Start: 01-08-2020 Office outpatient vi sit 15 minutes Chauncey Mayorga Other [facility] Start: 12-20-2019 Encounter for genera l adult medical examination without abnormal findings Caleb The[facility] Start: 12-20-2019 Routine general medi alverto examination at a health care facility [employer] Start: 09-18-2019 Office outpatient vi sit 15 minutes Caleb Winn Other [facility] Office Start: 06-26-2019 Office outpatient ne w 30 minutes Chauncey Lucia Other [facility] Office Start: 06-19-2019 Office outpatient vi sit 15 minutes Mary Ellen Agrawal Other [facility] Office Start: 06-06-2019 Lab Mary Ellen Phillips [facility] Other [facility] Office Start: 05-23-2019 Encounter for genera l adult medical examination without abnormal findings Caleb [facility] Start: 05-23-2019 Routine general medi alverto examination at a health care facility [employer] Start: 02-21-2019 Patient encounter procedure Caleb ThetaRay Start: 02-21-2019 Periodic preventive med est patient 40-64yrs Caleb Winn Other [facility] [facility] Office Start: 02-15-2019 Lab Caleb landaverde Other [facility] Office Start: 01-23-2019 Encounter for genera l adult medical examination without abnormal findings Caleb Winn [facility] Start: 01-23-2019 Routine general medi alverto examination at a health care facility Caleb Winn [facility] Start: 04-03-2018 Lab Caleb Keller s Other [facility] Start: 12-06-2017 Patient encounter procedure Caleb Winn [facility] Start: 12-06-2017 Periodic preventive med est patient 40-64yrs Caleb Winn Other [facility] Start: 11-22-2017 Lab Caleb Keller s Other [facility] Start: 10-25-2017 Encounter for genera l adult medical examination without abnormal findings Caleb Winn [facility] Start: 10-25-2017 Routine general medi alverto examination at a health care facility Caleb Winn [facility] Start: 09-27-2017 Office outpatient vi sit 15 minutes Mary Ellen Agrawal Other [facility] Start: 09-01-2017 Office outpatient vi sit 15 minutes Mary Ellen Agrawal Other [facility] Start: 12-07-2016 Office outpatient vi sit 15 minutes Mary Ellen Agrawal Other [facility] Start: 11-20-2015 Office outpatient vi sit 10 minutes Caleb Vicky Kellers Other [facility] Start: 10-13-2014 Office Services Caleb D Mill s Other [facility] Start: 10-08-2014 Lab Caleb D Mill s Other [facility] Start: 04-09-2014 Office Services Caleb D Mill s Other [facility] Start: 04-03-2014 Lab Caleb D Mill s Other [facility] Start: 03-17-2014 Office Services Mary Ellen Phillips [facility] Other [facility] Start: 01-06-2014 Routine general medi alverto examination at a health care facility Caleb Winn [facility] Start: 01-06-2014 Office Services Caleb landaverde Other [facility] Start: 12-27-2013 Lab Caleb landaverde Other [facility] Start: 12-13-2013 Routine general medi alverto examination [facility] Start: 06-05-2013 Office Services Laura arcos Other [facility] Start: 11-20-2012 Office Services Caleb landaverde Other [facility] Start: 11-07-2012 Lab Caleb landaverde Other [facility] Procedures Date Procedure Procedure Detail Performing Clinician Start: 11-01-2023 Nerve conduction jocelynn dies 9-10 studies Chani Anderson Start: 09-26-2023 Comprehensive metabolic panel Shea Ray Start: 09-26-2023 Hemoglobin A1c measurement Shea Ray Start: 06-25-2023 Hemoglobin A1c measurement Shea Ray Start: 06-24-2023 Comprehensive metabolic panel Shea Ray Start: 06-24-2023 Erythrocyte mean cor puscular volume determination Shea Ray Start: 06-24-2023 Lipid panel Shea Ray Start: 06-24-2023 Urinalysis, automated A ngela Ray Start: 12-26-2022 Docrev cur meds by elig clin Shea Ray Start: 12-25-2022 Hemoglobin A1c measurement Shea Ray Start: 12-25-2022 Lipid panel Shea Ray Start: 12-19-2022 Blood chemistry Shea Ray Start: 08-04-2022 Docrev cur meds by elig clin Shea Ray Start: 07-16-2022 Comprehensive metabolic panel Shea Ray Start: 07-16-2022 Hemoglobin A1c measurement Shea Ray Start: 07-16-2022 Lipid panel Shea Ray Start: 06-24-2022 Docrev cur meds by eli clin Shea Ray Start: 06-17-2022 Comprehensive metabolic panel Shea Ray Start: 06-17-2022 Erythrocyte mean cor puscular volume determination Shea Ray Start: 06-17-2022 Lipid panel Shea Ray Start: 06-17-2022 Urinalysis, automated A ngela Ray Start: 04-18-2022 Docrev cur meds by eli clin Shea Ray Start: 01-13-2022 Docrev cur meds by [facility] Shea Ray Start: 01-02-2022 Comprehensive metabolic panel Shea Ray Start: 01-02-2022 Lipid panel Shea Ray Start: 07-02-2021 Docrev cur meds by eli clin Shea Ray Start: 06-18-2021 Comprehensive metabolic panel Shea Ray Start: 06-18-2021 Erythrocyte mean cor puscular volume determination Shea Ray Start: 06-18-2021 Lipid panel Shea Ray Start: 06-18-2021 Urinalysis, automated A ngela Ray Start: 02-22-2021 Doc meds verified w/pt or re Caleb Winn Start: 06-19-2020 Doc meds verified w/pt or re Caleb Winn Start: 06-12-2020 Blood count complete automated Caleb Winn Start: 06-12-2020 Comprehensive metabolic panel Caleb Winn Start: 06-12-2020 Erythrocyte mean cor puscular volume determination Caleb Winn Start: 06-12-2020 Lipid panel Caleb Mi lls Start: 06-12-2020 Lipid panel Caleb Mi lls Start: 06-12-2020 Urinalysis, automated A ngela Ray Start: 05-08-2020 Assay of blood/uric acid Caleb Winn Start: 05-08-2020 Blood urate measurement Caleb Winn Start: 05-06-2020 Doc meds verified w/pt or re Chauncey Mayorga Start: 01-08-2020 Doc meds verified w/pt or re Chauncey Mayorga Start: 09-18-2019 Arthrocentesis aspir &/inj major jt/bursa w/o us Caleb Winn Start: 09-18-2019 Cell count and diffe rential, body fluid Caleb Winn Start: 09-18-2019 Cell count misc body fluids w/differential count Caleb Winn Start: 09-18-2019 Doc meds verified w/pt or re Caleb Winn Start: 09-18-2019 Injection of steroid into hip joint Caleb Winn Start: 09-18-2019 Methylprednisolone 80 MG inj Caleb Winn Start: 09-18-2019 Radiologic examinati on knee 1/2 views Caleb Winn Start: 06-26-2019 Doc meds verified w/pt or re Chauncey Lucia Start: 06-06-2019 Blood count complete automated Mary Ellen Nghia Start: 06-06-2019 Comprehensive metabolic panel Mary Ellen Agrawal Start: 06-06-2019 Erythrocyte mean cor puscular volume determination Caleb Winn Start: 06-06-2019 Lipid panel Mary Ellen Latham kelechi Start: 06-06-2019 Lipid panel Caleb Benjamin lls Start: 06-06-2019 Urinalysis, automated S guillaume Winn Start: 06-06-2019 Urnls dip stick/tabl et rgnt auto w/o microscopy Caleb Winn Start: 02-15-2019 Blood count complete automated Caleb Winn Start: 02-15-2019 Comprehensive metabolic panel Caleb Winn Start: 02-15-2019 Erythrocyte mean cor puscular volume determination Caleb Winn Start: 02-15-2019 Lipid panel Caleb Benjamin lls Start: 02-15-2019 Lipid panel Caleb Benjamin lls Start: 02-15-2019 Urinalysis, automated S guillaume Winn Start: 02-15-2019 Urnls dip stick/tabl et rgnt auto w/o microscopy Chauncey Mayorga Start: 04-05-2018 Alanine aminotransfe rase measurement Caleb Winn Start: 04-05-2018 Aspartate aminotrans ferase measurement Caleb Winn Start: 04-05-2018 Lipid panel Caleb Benjamin lls Start: 04-05-2018 Lipid panel Caleb Mi lls Start: 04-05-2018 Transferase alanine amino alt sgpt Caleb Winn Start: 04-05-2018 Transferase aspartat e amino ast sgot Caleb Winn Start: 12-06-2017 Doc meds verified w/pt or re Caleb Winn Start: 11-22-2017 Blood count complete automated Caleb Winn Start: 11-22-2017 Comprehensive metabolic panel Caleb Winn Start: 11-22-2017 Erythrocyte mean cor puscular volume determination Caleb Winn Start: 11-22-2017 Lipid panel Caleb Mi lls Start: 11-22-2017 Lipid panel Caleb Mi lls Start: 09-27-2017 Injection Caleb Mi lls Start: 09-27-2017 Methylprednisolone 80 MG inj Caleb Kellers Start: 09-27-2017 Therapeutic prophyla ctic/dx injection subq/im Caleb Kellers Start: 09-27-2017 Triamcinolone acet inj NOS Caleb Kellers Start: 09-01-2017 Doc meds verified w/pt or re Caleb Winn Start: 09-01-2017 Methylprednisolone 80 MG inj Caleb Kellers Start: 09-01-2017 Therapeutic prophyla ctic/dx injection subq/im Caleb Kellers Start: 09-01-2017 Triamcinolone acet inj NOS Caleb Winn Start: 02-11-2015 Alanine aminotransfe rase measurement Caleb Winn Start: 02-11-2015 Aspartate aminotrans ferase measurement Caleb Winn Start: 02-11-2015 Basic metabolic pane l calcium total Caleb Winn Start: 02-11-2015 Blood chemistry Caleb Winn Start: 02-11-2015 Lipid panel Caleb Mi lls Start: 02-11-2015 Lipid panel Caleb Mi lls Start: 02-11-2015 Transferase alanine amino alt sgpt Caleb Winn Start: 02-11-2015 Transferase aspartat e amino ast sgot Caleb Winn Start: 10-13-2014 Combined hepatitis A and B vaccination Caleb Winn Start: 10-13-2014 Doc meds verified w/pt or re Caleb Winn Start: 10-13-2014 INFLUENZA IMMUNIZATI ON ADMINISTERED OR PREVIOUSLY RECEIVED Caleb Winn Start: 10-13-2014 TOBACCO NON-USER Stepstephanie n Winn Start: 10-10-2014 Alanine aminotransfe rase measurement Caleb Kellers Start: 10-10-2014 Aspartate aminotrans ferase measurement Caleb Kellers Start: 10-10-2014 Lipid panel Caleb Mi lls Start: 10-10-2014 Lipid panel Caleb Mi lls Start: 10-10-2014 Transferase alanine amino alt sgpt Caleb Kellers Start: 10-10-2014 Transferase aspartat e amino ast sgot Caleb Kellers Start: 04-09-2014 Doc meds verified w/pt or re Caleb Winn Start: 04-09-2014 TOBACCO NON-USER Yolanda Winn Start: 04-05-2014 Alanine aminotransfe rase measurement Caleb Winn Start: 04-05-2014 Aspartate aminotrans ferase measurement Caleb Winn Start: 04-05-2014 Assay of blood/uric acid Caleb Winn Start: 04-05-2014 Blood urate measurement Caleb Winn Start: 04-05-2014 Lipid panel Caleb Mi lls Start: 04-05-2014 Lipid panel Caleb Mi lls Start: 04-05-2014 Transferase alanine amino alt sgpt Caleb Winn Start: 04-05-2014 Transferase aspartat e amino ast sgot Caleb Winn Start: 03-17-2014 Ketorolac tromethamine inj Caleb Winn Start: 03-17-2014 Therapeutic prophyla ctic/dx injection subq/im Caleb Winn Start: 01-06-2014 Doc meds verified w/pt or re Caleb Winn Start: 01-06-2014 Flu immunize no order/admin Caleb Winn Start: 01-06-2014 TOBACCO NON-USER Yolanda Winn Start: 12-27-2013 Blood count complete automated Caleb Winn Start: 12-27-2013 Comprehensive metabolic panel Caleb Winn Start: 12-27-2013 Erythrocyte mean cor puscular volume determination Caleb Winn Start: 12-27-2013 Lipid panel Caleb Benjamin lls Start: 12-27-2013 Lipid panel Caleb carsons Plan of Treatment Date Care Activity Detail Author Start: 01-11-2024 Comprehensive metabolic panel CMP (comprehensive metabolic panel) [facility] Start: 01-11-2024 Hemoglobin glycosylated a1c HEMOGLOBIN A1C [facility] Start: 01-11-2024 Lipid panel LIPID PROFILE [facility] Start: 09-26-2023 Comprehensive metabolic panel Comp [facility] Start: 09-26-2023 Hemoglobin glycosylated a1c A1c [facility] Start: 06-25-2023 Hemoglobin glycosylated a1c Hgb A1C (glycated hemoglobin) [facility] Start: 06-24-2023 Blood count complete automated CBC & PLATELET COUNT; AUTOMATED [facility] Start: 06-24-2023 Comprehensive metabolic panel Comprehensive metabolic panel [facility] Start: 06-24-2023 Lipid panel Lipid panel [facility] Start: 06-24-2023 Urnls dip stick/tablet rgnt auto w/o microscopy Urinalysis auto [facility] Start: 02-01-2023 Hemoglobin glycosylated a1c Hgb A1C (glycated hemoglobin) [facility] Start: 12-25-2022 Basic metabolic panel calcium total Chem 8 [facility] Start: 12-25-2022 Hemoglobin glycosylated a1c A1c [facility] Start: 12-25-2022 Lipid panel Lipid panel [facility] Start: 07-16-2022 Comprehensive metabolic panel CMP (comprehensive metabolic panel) [facility] Start: 07-16-2022 Hemoglobin glycosylated a1c A1c [facility] Start: 07-16-2022 Lipid panel LIPID PROFILE [facility] Start: 06-17-2022 Blood count complete automated CBC & PLATELET COUNT; AUTOMATED [facility] [facility] Start: 06-17-2022 Comprehensive metabolic panel Comprehensive metabolic panel [facility] Start: 06-17-2022 Lipid panel Lipid panel [facility] Start: 06-17-2022 Urnls dip stick/tablet rgnt auto w/o microscopy Urinalysis auto [facility] Start: 01-02-2022 Comprehensive metabolic panel Comp [facility] Start: 01-02-2022 Lipid panel Lipid panel [facility] Start: 06-18-2021 Blood count complete automated CBC & PLATELET COUNT; AUTOMATED [employer] [employer] Start: 06-18-2021 Comprehensive metabolic panel CMP [facility] [employer] Start: 06-18-2021 Lipid panel Lipid panel [facility] Start: 06-18-2021 Urnls dip stick/tablet rgnt auto w/o microscopy Urinalysis auto [facility] [employer] Start: 06-12-2020 Blood count complete automated CBC & PLATELET COUNT; AUTOMATED [employer] [employer] Start: 06-12-2020 Comprehensive metabolic panel Comprehensive metabolic panel [facility] Start: 06-12-2020 Lipid panel Lipid panel [employer] [employer] Start: 06-12-2020 Urnls dip stick/tablet rgnt auto w/o microscopy Urinalysis auto [facility] Start: 05-08-2020 Assay of blood/uric acid ASSAY OF BLOOD/URIC ACID [employer] [facility] [employer] Start: 05-08-2020 Urate [Mass/Vol] Uric acid, serum [facility] Start: 09-18-2019 Cell count misc body fluids w/differential count Cell count + diff body fluid [employer] [employer] Start: 09-18-2019 X-ray of left knee KNEE XRAY 1 OR 2 VIEWS [facility] Start: 07-25-2019 Blood count complete automated CBC & PLATELET COUNT; AUTOMATED [facility] Start: 06-06-2019 Comprehensive metabolic panel CMP [facility] Start: 06-06-2019 Lipid panel Lipid panel [email or web address] Start: 06-06-2019 Urnls dip stick/tablet rgnt auto w/o microscopy Urinalysis auto [facility] Start: 02-15-2019 Urnls dip stick/tablet rgnt auto w/o microscopy Urinalysis auto [facility] [employer] BUE EMG/NCS eval numbness [facility] Immunizations Immunization Date Immunization Notes Care Provider [facility] 10-13-2014 hepatitis A and hepa titis B vaccine; Translations: [IMMUNIZATION ADMIN] Caleb Winn [facility] 10-13-2014 influenza virus vacc ine, unspecified formulation; Translations: [FLU VACCINE 3 YRS & > IM] [employer] 10-13-2014 influenza, seasonal, injectable; Translations: [FLU VACCINE 3 YRS & > IM] [employer] 03-17-2014 vaccinia (smallpox) vaccine; Translations: [THER/PROPH/DIAG INJ SC/IM] [employer] Payers Date Payer Category Payer Unknown 1975 Unknown [id number] 1975 Unknown [id number] 1975 Unknown [id number] Unknown [id number] Unknown [id number] Unknown [id number] 2. [id number] Unknown [id number] 2. [id number] Social History Date Type Detail Facility Start: Never smoker [facility] Start: [facility] Summary Purpose Family History No Family History Records FoundNo Family History Records Found Advance Directives No Advanced Directives Records FoundNo Advanced Directives Records Found Additional Source Comments (unrecognized sect ion and content) No Status Records FoundNo Status Records Found INFORMATION SOURCE (unrecogn ized section and content) DATE CREATED AUTHOR 03/11/2022 [facility] DATE CREATED AUTHOR 'S ORGANIZ ATION 10/31/2023 [facility] FOR RECORDS PERTAINING TO PATIENTS WHO ARE OR HAVE BEEN ENROLLED IN A CHEMICAL DEPENDENCY/SUBSTANCEABUSE PROGRAM, SOME INFORMATION MAY BE OMITTED. This clinical summary was aggregated from multiple sources. Caution should be exercised in using it in the provision of clinical care. This summary normalizes information from multiple sources, and as a consequence, information in this document may materially change the coding, format and clinical context of patient data. In addition, data may be omitted in some cases. CLINICAL DECISIONS SHOULD BE BASED ON THE PRIMARY CLINICAL RECORDS. [facility]. provides no warranty or guarantee of the accuracy or completeness of information in this document.
[2023-12-04] MEDS: CEFAZOLIN SODIUM/DEXTROSE,ISO 2 GM/50 ML PIGGYBACK IV (13:07)
[2023-12-04] MEDS: LACTATED RINGER'S SOLUTION 1,000 ML 50 ML IV (13:27)
--- NOTE | 2023-12-04 13:40 | PM.ORPRC ---
Procedure Note Date of procedure: 12/04/23 Pre-op diagnosis: Right Carpal tunnel syndrome Post-op diagnosis: same as pre-op Procedure: Preoperative Diagnosis: Left carpal tunnel syndrome Postoperative Diagnosis: Same Procedure: Left endoscopic carpal tunnel release Surgeon: Jin Anesthesia: Local with MAC Estimated blood loss:Minimal Indications for Surgery: The patient has had signs and symptoms of carpal tunnel syndrome that have failed conservative treatment. Options were discussed with the patient as well as risks and benefits and they have elected to proceed with the surgery. Operative procedure: Prior to surgery the patient received IV antibiotics. The operative extremity was marked preoperatively. After informed consent was obtained the patient was brought to the operating room where MAC anesthesia was administered. Preoperatively 5 mm 0.5% Marcaine plain with 5 mm 1% lidocaine with epinephrine were infiltrated in the operative sight. The arm was then prepped and draped in the usual sterile fashion after placement of a well padded tourniquet. The arm was elevated, exsanguinated, and the tourniquet was inflated. A 1 cm incision was then made in a preexisting distal wrist crease. Hemostasis was achieved with bipolar electrocautery. Blunt dissection was then carried down to the forearm fascia where a U-based flap was created. Proximally the fascia was incised for 2 cm under direct visualization. Attention was then turned to the endoscopic carpal tunnel release. The synovial elevator was used to clear the underside of the transverse carpal ligament of soft tissue. Sequential dilators were then placed. The endoscopic carpal tunnel released instrument was then placed. The transverse fibers were then identified and release from distal to proximal. The ligament was completely release. The tourniquet was deflated and hemostasis was achieved. The wound was irrigated and closed with a nylon suture. A sterile dressing was placed. The patient was brought to the recovery room. There were no preoperative or postoperative complications. Anesthesia: MAC and local Surgeon: Del Abdi Estimated blood loss (mL): 1 Pathology: none sent Condition: stable Disposition: PACU
[2023-12-04] MEDS: LIDOCAINE HCL 1%-EPINEPHRINE 1:100,000 10 ML MDV 5 ML INJ (14:03)
[2023-12-04] MEDS: BUPIVACAINE HCL 0.5% PF 50 MG/10 ML VIAL 5 ML INJ (14:03)
[2023-12-04 14:23] VITALS: BP 123/78; PULSE 73; RESP 16; O2SAT 96
[2023-12-04 15:00] VITALS: BP 108/69; PULSE 73; RESP 16; O2SAT 95
== END 2023-12-04 15:00 | disposition home or self-care (01) ==
PROVIDERS: Visit Provider Orthopaedic Surgery
PROC: (CPT 1810; principal; 2023-12-04 13:00)
DX: G56.01 Carpal tunnel syndrome, right upper limb (principal); E66.01 Morbid (severe) obesity due to excess calories; Z68.41 Body mass index [BMI] 40.0-44.9, adult; G47.33 Obstructive sleep apnea (adult) (pediatric); E78.5 Hyperlipidemia, unspecified; M10.9 Gout, unspecified; F41.9 Anxiety disorder, unspecified
CPT/HCPCS: 29848; J0665; J0690; J2405; J2704

== ENCOUNTER 2023-12-18 12:12 | Day surgery (SDC) | payer OTHER, SELFPAY ==
--- OUTSIDE RECORDS SUMMARY | 2023-12-18 12:22 | XMS_ITS | CCD ---
Author Name Unknown Address [address] [place] [id number] Organization [facility] Care Team Providers Care Water Sponger Name Role Phone Caleb Winn Primary Care [...] Shea Live Primary Care Physician Unavailab le Mariano JUAREZ, Shea [facility] Unavailab [...] Penicillins (antibiotic) (1 source) Penicillins Drug Allergy [facility] (20 sources) Penicillins Allergy to substance (disorder) [facility] (5 sources) atorvastatin; Translations: [Lipitor] Drug Allergy myalgia [facility] (1 source) Penicillin; Translations: [penicillin] Drug Allergy [facility] Repository Medications Completed/Discontinued Medications Medication Drug Class(es) [...] Start: 07-02-2021 take 2 tablets by mo [facility] twice daily allopurinol 100 mg tablet 07/02/2021 [...] 04/01/2021 [facility] DreamStation 2 Auto CPAP Care Director Behavioral Health Download 07/24/2023 - 10/21/2023 [employer] 2 Auto CPAP Advanced [id number] Compliance Information 07/24/2023 - 10/21/2023 Compliance Summary [...] is using CPAP adherently and with benefit [place] Sleep Scale Sitting and Reading : Slight [...] Minutes : No chance of dozing Total [place] Sleepiness Scale Score : 3 [1] Review [...] patient vi (more content not included)... Normal [facility] Laboratory - Chemistry and C hemistry - challengeon 10-03-2023 Albumin [Mass/Vol] 4.50 g/dL Invalid Interpretation Code 3.7-5.0 [facility] Albumin/Globulin [Mass ratio] 1.5 {ratio} Invalid Interpretation Code 1.0-2.4 [facility] ALP [Catalytic activity/Vol] 48.0 U/L Invalid Interpretation Code 31-155 [facility] ALT [Catalytic activity/Vol] 21.0 U/L Invalid Interpretation Code 0-50 [facility] Anion gap [Moles/Vol] 12 mmol/L Invalid Interpretation Code 10-20 [facility] AST [Catalytic activity/Vol] 18.0 U/L Invalid Interpretation Code 0-40 [facility] Bilirubin [Mass/Vol] 0.70 mg/dL Invalid Interpretation Code 0.0-1.0 [facility] Calcium [Mass/Vol] 9.40 mg/dL Invalid Interpretation Code 8.5-10.8 [facility] Chloride [Moles/Vol] 99.0 mmol/L Invalid Interpretation Code 100-112 [facility] CO2 [Moles/Vol] 31.0 mmol/L Invalid Interpretation Code 23-30 [facility] Creatinine [Mass/Vol] 1.10 mg/dL Invalid Interpretation Code 0.5-1.5 [facility] Glucose [Mass/Vol] 130.0 mg/dL Invalid Interpretation Code 80-117 [facility] Potassium [Moles/Vol] 4.0 mmol/L Invalid Interpretation Code 3.5-5.3 [facility] Protein [Mass/Vol] 7.50 g/dL Invalid Interpretation Code 6.3-7.9 [facility] Sodium [Moles/Vol] 138.0 mmol/L Invalid Interpretation Code 135-148 [facility] Urea nitrogen [Mass/Vol] 16.0 mg/dL Invalid Interpretation Code 7-25 [facility] Urea nitrogen/Creatinin e [Mass ratio] 15 mg/mg Invalid Interpretation Code 6-20 [facility] Laboratory - Hematology and Cell countson 10-03-2023 HbA1c (Bld) [Mass fraction] 7.20 % Invalid Interpretation Code 4.3-6.3 [facility] No Panel Informationon 10-03 160.0 mg/dL Invalid Interpretation Code [facility] 82 Invalid Interpretation Code [facility] No Panel Informationon 06-22 Tobacco smoking status Non-Smoker Invalid Interpretation Code [facility] Laboratory - Chemistry and C hemistry - challengeon 06-21-2023 Albumin [Mass/Vol] 4.20 g/dL Invalid Interpretation Code 3.7-5.0 [facility] Albumin/Globulin [Mass ratio] 1.4 {ratio} Invalid Interpretation Code 1.0-2.4 [facility] ALP [Catalytic activity/Vol] 52.0 U/L Invalid Interpretation Code 31-155 [facility] ALT [Catalytic activity/Vol] 37.0 U/L Invalid Interpretation Code 0-50 [facility] Anion gap [Moles/Vol] 18 mmol/L Invalid Interpretation Code 10-20 [facility] AST [Catalytic activity/Vol] 31.0 U/L Invalid Interpretation Code 0-40 [facility] Bilirubin [Mass/Vol] 0.80 mg/dL Invalid Interpretation Code 0.0-1.0 [facility] Bilirubin Ql (U) Negative Invalid Interpretation Code Negative [facility] Calcium [Mass/Vol] 9.20 mg/dL Invalid Interpretation Code 8.5-10.8 [facility] Chloride [Moles/Vol] 99.0 mmol/L Invalid Interpretation Code 100-112 [facility] Cholesterol [Mass/Vol] 231.0 mg/dL Invalid Interpretation Code 0-200 [facility] Cholesterol in HDL [Mass/Vol] 34.0 mg/dL Invalid Interpretation Code 36-100 [facility] Cholesterol in LDL [Mass/Vol] 125.0 mg/dL Invalid Interpretation Code 0-130 [facility] Cholesterol in VLDL [Mass/Vol] 72.0 mg/dL Invalid Interpretation Code 0-39 [facility] Cholesterol.total/ Cholesterol in HDL [Mass ratio] 7 {ratio} Invalid Interpretation Code [facility] CO2 [Moles/Vol] 24.0 mmol/L Invalid Interpretation Code 23-30 [facility] Creatinine [Mass/Vol] 1.0 mg/dL Invalid Interpretation Code 0.5-1.5 [facility] Glucose [Mass/Vol] 180.0 mg/dL Invalid Interpretation Code 80-117 [facility] Ketones Ql (U) Negative Invalid Interpretation Code Negative [facility] pH (U) 5 [pH] Invalid Interpretation Code 5.0-9.0 [facility] Potassium [Moles/Vol] 4.10 mmol/L Invalid Interpretation Code 3.5-5.3 [facility] Protein [Mass/Vol] 7.30 g/dL Invalid Interpretation Code 6.3-7.9 [facility] Sodium [Moles/Vol] 137.0 mmol/L Invalid Interpretation Code 135-148 [facility] Specific gravity (U) [Rel density] 1.030 Invalid Interpretation Code 1.003-1.030 [facility] Triglyceride [Mass/Vol] 358.0 mg/dL Invalid Interpretation Code 30-150 [facility] Urea nitrogen [Mass/Vol] 19.0 mg/dL Invalid Interpretation Code 7-25 [facility] Urea nitrogen/Creatinin e [Mass ratio] 19 mg/mg Invalid Interpretation Code 6-20 [facility] Urobilinogen (U) [Mass/Vol] normal Invalid Interpretation Code normal [facility] Laboratory - Hematology and Cell countson 06-21-2023 Erythrocyte distribution width (RBC) [Ratio] 12.80 % Invalid Interpretation Code 11.5-15.5 [facility] HbA1c (Bld) [Mass fraction] 8.50 % Invalid Interpretation Code 4.3-6.3 [facility] Hematocrit (Bld) [Volume fraction] 44.50 % Invalid Interpretation Code 37.8-51.0 [facility] Hemoglobin (Bld) [Mass/Vol] 15.40 g/dL Invalid Interpretation Code 12.6-17.0 [facility] Hemoglobin Ql (U) Negative Invalid Interpretation Code Negative [facility] MCH (RBC) [Entitic mass] 28.40 pg Invalid Interpretation Code 25.7-33.8 [facility] MCHC (RBC) [Mass/Vol] 34.60 g/dL Invalid Interpretation Code 32.0-36.0 [facility] MCV (RBC) [Entitic vol] 82.0 fL Invalid Interpretation Code 81.0-100.2 [facility] Platelet mean volume (Bld) [Entitic vol] 9.50 fL Invalid Interpretation Code 8.3-11.5 [facility] Platelets (Bld) [#/Vol] 220.0 10*3/uL Invalid Interpretation Code 150-400 [facility] RBC (Bld) [#/Vol] 5.430 10*6/uL Invalid Interpretation Code 4.34-5.61 [facility] WBC (Bld) [#/Vol] 5.80 10*3/uL Invalid Interpretation Code 3.9-10.3 [facility] Laboratory - Specimen inform ationon 06-21-2023 Clarity (U) Clear Invalid Interpretation Code Clear [facility] Collection time (Alyse) [Date/time] 8:10am Invalid Interpretation Code [facility] Color (U) vicente Invalid Interpretation Code yellow [facility] Laboratory - Urinalysison Glucose Test strip (U) [Mass/Vol] Negative Invalid Interpretation Code Negative [facility] Leukocyte esterase Test strip Ql (U) Negative Invalid Interpretation Code Negative [facility] Nitrite Ql (U) Negative Invalid Interpretation Code Negative [facility] Protein Ql (U) 1+ Invalid Interpretation Code Negative [facility] No Panel Informationon 06-21 92 Invalid Interpretation Code [facility] 0-4 Invalid Interpretation Code 0-4 [facility] 2+ Invalid Interpretation Code slight [facility] Trace Invalid Interpretation Code none [facility] 197.0 mg/dL Invalid Interpretation Code [facility] No Panel Informationon 12-26 Body mass index (BMI) [Percentile] Per age and sex 0.1 {percentile} Invalid Interpretation Code [facility] [id number] Per age and sex 0.1 {percentile} Invalid Interpretation Code [facility] Laboratory - Chemistry and C hemistry - challengeon 12-19-2022 Anion gap [Moles/Vol] 16 mmol/L Invalid Interpretation Code 10-20 [facility] Calcium [Mass/Vol] 9.40 mg/dL Invalid Interpretation Code 8.5-10.8 [facility] Chloride [Moles/Vol] 101.0 mmol/L Invalid Interpretation Code 100-112 [facility] Cholesterol [Mass/Vol] 215.0 mg/dL Invalid Interpretation Code 0-200 [facility] Cholesterol in HDL [Mass/Vol] 36.0 mg/dL Invalid Interpretation Code 36-100 [facility] Cholesterol in LDL [Mass/Vol] 126.0 mg/dL Invalid Interpretation Code 0-130 [facility] Cholesterol in VLDL [Mass/Vol] 53.0 mg/dL Invalid Interpretation Code 0-39 [facility] Cholesterol.total/ Cholesterol in HDL [Mass ratio] 6 {ratio} Invalid Interpretation Code [facility] CO2 [Moles/Vol] 29.0 mmol/L Invalid Interpretation Code 23-30 [facility] Creatinine [Mass/Vol] 1.0 mg/dL Invalid Interpretation Code 0.5-1.5 [facility] GFR/1.73 sq M.predicted among non-blacks MDRD (S/P/Bld) [Vol rate/Area] 79 mL/min/{1.73_m2} Invalid Interpretation Code [facility] Glucose [Mass/Vol] 124.0 mg/dL Invalid Interpretation Code 80-117 [facility] Potassium [Moles/Vol] 4.30 mmol/L Invalid Interpretation Code 3.5-5.3 [facility] Sodium [Moles/Vol] 142.0 mmol/L Invalid Interpretation Code 135-148 [facility] Triglyceride [Mass/Vol] 264.0 mg/dL Invalid Interpretation Code 30-150 [facility] Urea nitrogen [Mass/Vol] 17.0 mg/dL Invalid Interpretation Code 7-25 [facility] Urea nitrogen/Creatinin e [Mass ratio] 17 mg/mg Invalid Interpretation Code 6-20 [facility] Laboratory - Hematology and Cell countson 12-19-2022 HbA1c (Bld) [Mass fraction] 6.60 % Invalid Interpretation Code 4.3-6.3 [facility] No Panel Informationon 12-19 143.0 mg/dL Invalid Interpretation Code [facility] [facility] Office/Clinic Noteon 11-02-2022 Sleep Medicine [...] 04/01/2021 [employer]ato DreamStation 2 Advanced CPAP Care Director Behavioral Health Download [employer] 2 Auto CPAP Advanced [id number]) [id number] Compliance Information 08/04/2022 - 11/01/2022 Compliance Summary [...] cmH2O Clearly is using CPAP with benefit. [place] Sleep Scale Sitting and Reading : No [...] Minutes : No chance of dozing Total [place] Sleepiness Scale Score 2 : 5 [1] [...] date, direct (more content not included)... Normal [facility] Laboratory - Chemistry and C hemistry - challengeon 07-13-2022 Albumin [Mass/Vol] 4.30 g/dL Invalid Interpretation Code 3.7-5.0 [facility] Albumin/Globulin [Mass ratio] 1.4 {ratio} Invalid Interpretation Code 1.0-2.4 [facility] ALP [Catalytic activity/Vol] 50.0 U/L Invalid Interpretation Code 31-155 [facility] ALT [Catalytic activity/Vol] 32.0 U/L Invalid Interpretation Code 0-50 [facility] Anion gap [Moles/Vol] 13 mmol/L Invalid Interpretation Code 10-20 [facility] AST [Catalytic activity/Vol] 23.0 U/L Invalid Interpretation Code 0-40 [facility] Bilirubin [Mass/Vol] 0.40 mg/dL Invalid Interpretation Code 0.0-1.0 [facility] Calcium [Mass/Vol] 9.20 mg/dL Invalid Interpretation Code 8.5-10.8 [facility] Chloride [Moles/Vol] 101.0 mmol/L Invalid Interpretation Code 100-112 [facility] Cholesterol [Mass/Vol] 238.0 mg/dL Invalid Interpretation Code 0-200 [facility] Cholesterol in HDL [Mass/Vol] 37.0 mg/dL Invalid Interpretation Code 36-100 [facility] Cholesterol in LDL [Mass/Vol] 160.0 mg/dL Invalid Interpretation Code 0-130 [facility] Cholesterol in VLDL [Mass/Vol] 41.0 mg/dL Invalid Interpretation Code 0-39 [facility] Cholesterol.total/ Cholesterol in HDL [Mass ratio] 6 {ratio} Invalid Interpretation Code [facility] CO2 [Moles/Vol] 28.0 mmol/L Invalid Interpretation Code 23-30 [facility] Creatinine [Mass/Vol] 1.0 mg/dL Invalid Interpretation Code 0.5-1.5 [facility] GFR/1.73 sq M.predicted among non-blacks MDRD (S/P/Bld) [Vol rate/Area] 80 mL/min/{1.73_m2} Invalid Interpretation Code [facility] Glucose [Mass/Vol] 116.0 mg/dL Invalid Interpretation Code 80-117 [facility] Potassium [Moles/Vol] 4.20 mmol/L Invalid Interpretation Code 3.5-5.3 [facility] Protein [Mass/Vol] 7.30 g/dL Invalid Interpretation Code 6.3-7.9 [facility] Sodium [Moles/Vol] 138.0 mmol/L Invalid Interpretation Code 135-148 [facility] Triglyceride [Mass/Vol] 204.0 mg/dL Invalid Interpretation Code 30-150 [facility] Urea nitrogen [Mass/Vol] 16.0 mg/dL Invalid Interpretation Code 7-25 [facility] Urea nitrogen/Creatinin e [Mass ratio] 16 mg/mg Invalid Interpretation Code 6-20 [facility] Laboratory - Hematology and Cell countson 07-13-2022 Erythrocyte distribution width (RBC) [Ratio] 12.80 % Invalid Interpretation Code 11.5-15.5 [facility] HbA1c (Bld) [Mass fraction] 6.30 % Invalid Interpretation Code 4.3-6.3 [facility] Hematocrit (Bld) [Volume fraction] 44.40 % Invalid Interpretation Code 37.8-51.0 [facility] Hemoglobin (Bld) [Mass/Vol] 15.30 g/dL Invalid Interpretation Code 12.6-17.0 [facility] MCH (RBC) [Entitic mass] 28.70 pg Invalid Interpretation Code 25.7-33.8 [facility] MCHC (RBC) [Mass/Vol] 34.50 g/dL Invalid Interpretation Code 32.0-36.0 [facility] MCV (RBC) [Entitic vol] 83.10 fL Invalid Interpretation Code 81.0-100.2 [facility] Platelet mean volume (Bld) [Entitic vol] 9.70 fL Invalid Interpretation Code 8.3-11.5 [facility] Platelets (Bld) [#/Vol] 207.0 10*3/uL Invalid Interpretation Code 150-400 [facility] RBC (Bld) [#/Vol] 5.340 10*6/uL Invalid Interpretation Code 4.34-5.61 [facility] WBC (Bld) [#/Vol] 5.50 10*3/uL Invalid Interpretation Code 3.9-10.3 [facility] No Panel Informationon 07-13 134.0 mg/dL Invalid Interpretation Code [facility] Laboratory - Chemistry and C hemistry - challengeon 06-20-2022 Albumin [Mass/Vol] 4.50 g/dL Invalid Interpretation Code 3.7-5.0 [facility] Albumin/Globulin [Mass ratio] 1.8 {ratio} Invalid Interpretation Code 1.0-2.4 [facility] ALP [Catalytic activity/Vol] 48.0 U/L Invalid Interpretation Code 31-155 [facility] ALT [Catalytic activity/Vol] 35.0 U/L Invalid Interpretation Code 0-50 [facility] Anion gap [Moles/Vol] 15 mmol/L Invalid Interpretation Code 10-20 [facility] AST [Catalytic activity/Vol] 27.0 U/L Invalid Interpretation Code 0-40 [facility] Bilirubin [Mass/Vol] 0.50 mg/dL Invalid Interpretation Code 0.0-1.0 [facility] Bilirubin Ql (U) Negative Invalid Interpretation Code Negative [facility] Calcium [Mass/Vol] 9.10 mg/dL Invalid Interpretation Code 8.5-10.8 [facility] Chloride [Moles/Vol] 99.0 mmol/L Invalid Interpretation Code 100-112 [facility] Cholesterol [Mass/Vol] 251.0 mg/dL Invalid Interpretation Code 0-200 [facility] Cholesterol in HDL [Mass/Vol] 36.0 mg/dL Invalid Interpretation Code 36-100 [facility] Cholesterol in LDL [Mass/Vol] 158.0 mg/dL Invalid Interpretation Code 0-130 [facility] Cholesterol in VLDL [Mass/Vol] 57.0 mg/dL Invalid Interpretation Code 0-39 [facility] Cholesterol.total/ Cholesterol in HDL [Mass ratio] 7 {ratio} Invalid Interpretation Code [facility] CO2 [Moles/Vol] 28.0 mmol/L Invalid Interpretation Code 23-30 [facility] Creatinine [Mass/Vol] 1.0 mg/dL Invalid Interpretation Code 0.5-1.5 [facility] GFR/1.73 sq M.predicted among non-blacks MDRD (S/P/Bld) [Vol rate/Area] 80 mL/min/{1.73_m2} Invalid Interpretation Code [facility] Glucose [Mass/Vol] 114.0 mg/dL Invalid Interpretation Code 80-117 [facility] Ketones Ql (U) Negative Invalid Interpretation Code Negative [facility] pH (U) 6 [pH] Invalid Interpretation Code 5.0-9.0 [facility] Potassium [Moles/Vol] 4.40 mmol/L Invalid Interpretation Code 3.5-5.3 [facility] Protein [Mass/Vol] 7.0 g/dL Invalid Interpretation Code 6.3-7.9 [facility] Sodium [Moles/Vol] 138.0 mmol/L Invalid Interpretation Code 135-148 [facility] Specific gravity (U) [Rel density] 1.025 Invalid Interpretation Code 1.003-1.030 [facility] Triglyceride [Mass/Vol] 285.0 mg/dL Invalid Interpretation Code 30-150 [facility] Urea nitrogen [Mass/Vol] 15.0 mg/dL Invalid Interpretation Code 7-25 [facility] Urea nitrogen/Creatinin e [Mass ratio] 15 mg/mg Invalid Interpretation Code 6-20 [facility] Urobilinogen (U) [Mass/Vol] normal Invalid Interpretation Code normal [facility] Laboratory - Hematology and Cell countson 06-20-2022 Erythrocyte distribution width (RBC) [Ratio] 13.50 % Invalid Interpretation Code 11.5-15.5 [facility] Hematocrit (Bld) [Volume fraction] 44.60 % Invalid Interpretation Code 37.8-51.0 [facility] Hemoglobin (Bld) [Mass/Vol] 14.90 g/dL Invalid Interpretation Code 12.6-17.0 [facility] Hemoglobin Ql (U) Negative Invalid Interpretation Code Negative [facility] MCH (RBC) [Entitic mass] 28.10 pg Invalid Interpretation Code 25.7-33.8 [facility] MCHC (RBC) [Mass/Vol] 33.40 g/dL Invalid Interpretation Code 32.0-36.0 [facility] MCV (RBC) [Entitic vol] 84.20 fL Invalid Interpretation Code 81.0-100.2 [facility] Platelet mean volume (Bld) [Entitic vol] 9.20 fL Invalid Interpretation Code 8.3-11.5 [facility] Platelets (Bld) [#/Vol] 222.0 10*3/uL Invalid Interpretation Code 150-400 [facility] RBC (Bld) [#/Vol] 5.30 10*6/uL Invalid Interpretation Code 4.34-5.61 [facility] WBC (Bld) [#/Vol] 5.50 10*3/uL Invalid Interpretation Code 3.9-10.3 [facility] Laboratory - Specimen inform ationon 06-20-2022 Clarity (U) clear Invalid Interpretation Code Clear [facility] Collection time (Alyse) [Date/time] 8:30am Invalid Interpretation Code [facility] Color (U) yellow Invalid Interpretation Code yellow [facility] Laboratory - Urinalysison Glucose Test strip (U) [Mass/Vol] Negative Invalid Interpretation Code Negative [facility] Leukocyte esterase Test strip Ql (U) Negative Invalid Interpretation Code Negative [facility] Nitrite Ql (U) Negative Invalid Interpretation Code Negative [facility] Protein Ql (U) Negative Invalid Interpretation Code Negative [facility] Laboratory - Chemistry and C hemistry - challengeon 01-07-2022 Albumin [Mass/Vol] 4.70 g/dL Invalid Interpretation Code 3.7-5.0 [facility] Albumin/Globulin [Mass ratio] 1.9 {ratio} Invalid Interpretation Code 1.0-2.4 [facility] ALP [Catalytic activity/Vol] 54.0 U/L Invalid Interpretation Code 31-155 [facility] ALT [Catalytic activity/Vol] 33.0 U/L Invalid Interpretation Code 0-50 [facility] Anion gap [Moles/Vol] 18 mmol/L Invalid Interpretation Code 10-20 [facility] AST [Catalytic activity/Vol] 30.0 U/L Invalid Interpretation Code 0-40 [facility] Bilirubin [Mass/Vol] 0.60 mg/dL Invalid Interpretation Code 0.0-1.0 [facility] Calcium [Mass/Vol] 9.40 mg/dL Invalid Interpretation Code 8.5-10.8 [facility] Chloride [Moles/Vol] 99.0 mmol/L Invalid Interpretation Code 100-112 [facility] Cholesterol [Mass/Vol] 213.0 mg/dL Invalid Interpretation Code 0-200 [facility] Cholesterol in HDL [Mass/Vol] 33.0 mg/dL Invalid Interpretation Code 36-100 [facility] Cholesterol in LDL [Mass/Vol] 129.0 mg/dL Invalid Interpretation Code 0-130 [facility] Cholesterol in VLDL [Mass/Vol] 51.0 mg/dL Invalid Interpretation Code 0-39 [facility] Cholesterol.total/ Cholesterol in HDL [Mass ratio] 6 {ratio} Invalid Interpretation Code [facility] CO2 [Moles/Vol] 27.0 mmol/L Invalid Interpretation Code 23-30 [facility] Creatinine [Mass/Vol] 1.20 mg/dL Invalid Interpretation Code 0.5-1.5 [facility] GFR/1.73 sq M.predicted among non-blacks MDRD (S/P/Bld) [Vol rate/Area] 65 mL/min/{1.73_m2} Invalid Interpretation Code [facility] Glucose [Mass/Vol] 125.0 mg/dL Invalid Interpretation Code 80-117 [facility] Potassium [Moles/Vol] 4.10 mmol/L Invalid Interpretation Code 3.5-5.3 [facility] Protein [Mass/Vol] 7.20 g/dL Invalid Interpretation Code 6.3-7.9 [facility] Sodium [Moles/Vol] 140.0 mmol/L Invalid Interpretation Code 135-148 [facility] Triglyceride [Mass/Vol] 253.0 mg/dL Invalid Interpretation Code 30-150 [facility] Urea nitrogen [Mass/Vol] 16.0 mg/dL Invalid Interpretation Code 7-25 [facility] Urea nitrogen/Creatinin e [Mass ratio] 13 mg/mg Invalid Interpretation Code 6-20 [facility] Laboratory - Chemistry and C hemistry - challengeon 06-18-2021 Albumin [Mass/Vol] 4.60 g/dL Invalid Interpretation Code 3.7-4.5 [facility] Albumin/Globulin [Mass ratio] 1.6 {ratio} Invalid Interpretation Code 1.0-2.4 [facility] ALP [Catalytic activity/Vol] 46.0 U/L Invalid Interpretation Code 31-155 [facility] ALT [Catalytic activity/Vol] 20.0 U/L Invalid Interpretation Code 0-50 [facility] Anion gap [Moles/Vol] 16 mmol/L Invalid Interpretation Code 10-20 [facility] AST [Catalytic activity/Vol] 15.0 U/L Invalid Interpretation Code 0-40 [facility] Bilirubin [Mass/Vol] 0.80 mg/dL Invalid Interpretation Code 0.0-1.0 [facility] Bilirubin Ql (U) Negative Invalid Interpretation Code Negative [facility] Calcium [Mass/Vol] 9.60 mg/dL Invalid Interpretation Code 8.5-10.8 [facility] Chloride [Moles/Vol] 102.0 mmol/L Invalid Interpretation Code 100-112 [facility] Cholesterol [Mass/Vol] 238.0 mg/dL Invalid Interpretation Code 0-200 [facility] Cholesterol in HDL [Mass/Vol] 38.0 mg/dL Invalid Interpretation Code 36-100 [facility] Cholesterol in VLDL [Mass/Vol] 84.0 mg/dL Invalid Interpretation Code 0-39 [facility] Cholesterol.total/ Cholesterol in HDL [Mass ratio] 6 {ratio} Invalid Interpretation Code [facility] CO2 [Moles/Vol] 27.0 mmol/L Invalid Interpretation Code 23-30 [facility] Creatinine [Mass/Vol] 1.10 mg/dL Invalid Interpretation Code 0.5-1.5 [facility] GFR/1.73 sq M.predicted among non-blacks MDRD (S/P/Bld) [Vol rate/Area] 72 mL/min/{1.73_m2} Invalid Interpretation Code [facility] Glucose [Mass/Vol] 115.0 mg/dL Invalid Interpretation Code 80-117 [facility] Ketones Ql (U) Negative Invalid Interpretation Code Negative [facility] pH (U) 5 [pH] Invalid Interpretation Code 5.0-9.0 [facility] Potassium [Moles/Vol] 4.30 mmol/L Invalid Interpretation Code 3.5-5.3 [facility] Protein [Mass/Vol] 7.40 g/dL Invalid Interpretation Code 6.3-7.9 [facility] Sodium [Moles/Vol] 141.0 mmol/L Invalid Interpretation Code 135-148 [facility] Specific gravity (U) [Rel density] 1.020 Invalid Interpretation Code 1.003-1.030 [facility] Triglyceride [Mass/Vol] 421.0 mg/dL Invalid Interpretation Code 30-150 [facility] Urea nitrogen [Mass/Vol] 19.0 mg/dL Invalid Interpretation Code 7-25 [facility] Urea nitrogen/Creatinin e [Mass ratio] 17 mg/mg Invalid Interpretation Code 6-20 [facility] Urobilinogen (U) [Mass/Vol] normal Invalid Interpretation Code normal [facility] Laboratory - Hematology and Cell countson 06-18-2021 Erythrocyte distribution width (RBC) [Ratio] 13.60 % Invalid Interpretation Code 11.5-15.5 [facility] Hematocrit (Bld) [Volume fraction] 44.90 % Invalid Interpretation Code 37.8-51.0 [facility] Hemoglobin (Bld) [Mass/Vol] 15.30 g/dL Invalid Interpretation Code 12.6-17.0 [facility] Hemoglobin Ql (U) Negative Invalid Interpretation Code Negative [facility] MCH (RBC) [Entitic mass] 28.0 pg Invalid Interpretation Code 25.7-33.8 [facility] MCHC (RBC) [Mass/Vol] 34.10 g/dL Invalid Interpretation Code 32.0-36.0 [facility] [employer] MCV (RBC) [Entitic vol] 82.20 fL Invalid Interpretation Code 81.0-100.2 [facility] Platelet mean volume (Bld) [Entitic vol] 9.70 fL Invalid Interpretation Code 8.3-11.5 [facility] Platelets (Bld) [#/Vol] 219.0 10*3/uL Invalid Interpretation Code 150-400 [facility] RBC (Bld) [#/Vol] 5.460 10*6/uL Invalid Interpretation Code 4.34-5.61 [facility] WBC (Bld) [#/Vol] 6.20 10*3/uL Invalid Interpretation Code 3.9-10.3 [facility] Laboratory - Specimen inform ationon 06-18-2021 Clarity (U) clear Invalid Interpretation Code Clear [facility] Collection time (Alyse) [Date/time] 8:30am Invalid Interpretation Code [facility] Color (U) yellow Invalid Interpretation Code yellow [facility] Laboratory - Urinalysison Glucose Test strip (U) [Mass/Vol] Negative Invalid Interpretation Code Negative [facility] Leukocyte esterase Test strip Ql (U) Negative Invalid Interpretation Code Negative [facility] Nitrite Ql (U) Negative Invalid Interpretation Code Negative [facility] Protein Ql (U) Negative Invalid Interpretation Code Negative [facility] C REACTIVE PROTEINon 021 CRP [Mass/Vol] 4.7 mg/L Normal 0.0-7.0 [facility] Comment on above: Performed By: #### 6 1405, [id number] #### [address] CYCLIC CITRULLINATED PEPTIDE [place] [id number] 03-11-2021 CYCLIC CIT PEP 4 Units Normal 0-19 [facility] Comment on above: Result Comment: INTE RPRETIVE [...] be monitored and testing repeated. Performed By: [facility] [address] [place] [address] [employer]ocad Designer: Mary Guevara MD HAND LEFT 3 [facility] 03-11-2021 HAND LEFT 3 [facility] Department of Radiology [address] [place] [phone] Patient Name: AMITA ZHENG : 1975 Sex: M Age: Race: White Pt. Location: [facility] Patient Status: O Ordered Date: 03/11/2021 10:55:00 [...] Electronically signed: Precious Jean Baptiste. Transcribed by: [email or web address], User Resident: Electronically Signed by: PRECIOUS JEAN BAPTISTE @ 03/11/2021 11:19 AM Normal [facility] Comment on above: Order Comment: Evalu ate HAND RIGHT 3 Son HAND RIGHT 3 [facility] Department of Radiology [address] [place] [phone] Patient Name: AMITA ZHENG : 1975 Sex: M Age: Race: White Pt. Location: [facility] Patient Status: O Ordered Date: 03/11/2021 10:50:00 AM Completed Date: 03/11/2021 10:59 AM Requesting Provider: ROBER MCDONOUGH Attending Provider: ROBER MCDONOUGH Report Copy To: Signs & Symptoms: M25.50 Pain in unspecified joint I10 History: Comments: Evaluate Exam: HAND RIGHT 3 [facility] HAND RIGHT 3 [facility] 03/11/2021 10:59 AM CLINICAL INDICATIONS: M25.50 [...] Electronically signed: Precious Jean Baptiste. Transcribed by: [email or web address], User Resident: Electronically Signed by: PRECIOUS JEAN BAPTISTE @ 03/11/2021 11:15 AM Normal [facility] Comment on above: Order Comment: Evalu ate KNEE RIGHT 3 [facility] KNEE RIGHT 3 [facility] Department of Radiology [address] [place] [phone] Patient Name: AMITA ZHENG : 1975 [...] Electronically signed: Precious Jean Baptiste. Transcribed by: [email or web address], User Resident: Electronically Signed by: PRECIOUS JEAN BAPTISTE @ 03/11/2021 11:14 AM Normal [facility] Comment on above: Order Comment: Evalu ate RENAL FUNCTION PANELon 03-11 Albumin [Mass/Vol] 4.6 g/dL Normal 3.5-5.7 [facility] Comment on above: Performed By: #### 4 5506, 10505 #### [facility] [address] [place] [address], [facility] Calcium [Mass/Vol] 9.8 mg/dL Normal 8.6-10.3 [facility] Comment on above: Performed By: #### 4 5505, [id number] #### [facility] [address] [place] [address], [place] Chloride [Moles/Vol] 98 mmol/L Normal 98-107 [facility] Comment on above: Performed By: #### 4 5505, 18073 #### [facility] [address] [place] [address], [place] CO2 [Moles/Vol] 28 mmol/L Normal 21-31 [facility] Comment on above: Performed By: #### 4 5505, 13000 #### [facility] [address] [place] [address], [place] Creatinine [Mass/Vol] 0.99 mg/dL Normal 0.70-1.30 [facility] Comment on above: Performed By: #### 4 5505, 76988 #### [facility] [address] [place] [address], [place] GFR/1.73 sq M.predicted among blacks MDRD (S/P/Bld) [Vol rate/Area] mL/min/{1.73_m2} Normal >60 [facility] Comment on above: Performed By: #### 4 5505, 87824 #### [facility] [address] [place] [address], [place] GFR/1.73 sq M.predicted among non-blacks MDRD (S/P/Bld) [Vol rate/Area] mL/min/{1.73_m2} Normal >60 [facility] Comment on above: Performed By: #### 4 5505, [id number] #### [facility] [address] [place] [address], [place] Glucose [Mass/Vol] 95 mg/dL Normal 70-100 [facility] Comment on above: Performed By: #### 4 5505, 63702 #### [facility] [address] [place] [id number], [facility] Phosphate [Mass/Vol] 3.5 mg/dL Normal 2.5-5.0 [facility] Comment on above: Performed By: #### 4 5506, 10237 #### [facility] [address] [place] [address], [facility] Potassium [Moles/Vol] 3.8 mmol/L Normal 3.5-5.1 [facility] Comment on above: Performed By: #### 4 5506, 21175 #### [facility] [address] [place] [address], [facility] Sodium [Moles/Vol] 136 mmol/L Normal 136-145 [facility] Comment on above: Performed By: #### 4 5506, 53757 #### [facility] [address] [place] [id number], [facility] Urea nitrogen [Mass/Vol] 21 mg/dL Normal 7-25 [facility] Comment on above: Performed By: #### 4 5506, 39353 #### [facility] [address] [place] [address], [facility] RHEUMATOID FACTOR SERUMon RA <20 Normal 0-20 [facility] Comment on above: Performed By: #### 6 1405, 45135 #### [facility] [address] [place] [id number], [facility] SEDIMENTATION RATEon 021 SED RATE 5 mm/hr Normal 0-10 [facility] Comment on above: Performed By: #### 5 6506 #### [facility] [address] [place] [id number], [facility] TB QUANTIFERON PLUSon 2020 MITOGEN MINUS NIL >10.00 Normal [facility] Comment on above: Performed By: #### 3 1592 #### [facility] [address] [place] [id number], [place] NIL 0.07 IU/mL Normal [facility] Comment on above: Performed By: #### 3 1592 #### [facility] [address] [place] [address], [facility] TB QUANTIFERON Negative Normal NEGATIVE [facility] Comment on above: Result Comment: Jonnathan tiferon TB Gold Interpretation (IU/mL): NEGATIVE: M. tuberculosis infection not likely. Nil: <=8.0 TB1 Antigen minus Nil ([id number]): <0.35 OR >=0.35; and <25% of Nil value. TB2 Antigen minus Nil ([id number]): <0.35 OR >=0.35; and <25% of Nil [...] (https://www.cdc.gov/tb/publications/guidlines/default.htm Performed By: #### 3 1592 #### [facility] [address] [facility] [place] [address], [facility] TB1 AG 0.17 IU/mL Normal [facility] Comment on above: Performed By: #### 3 1592 #### [facility] [address] [facility] [place] [address], [facility] TB1 AG MINUS NIL 0.10 IU/mL Normal [facility] Comment on above: Performed By: #### 3 1592 #### [facility] [address] [facility] [place] [address], [facility] TB2 AG 0.11 IU/mL Normal [facility] Comment on above: Performed By: #### 3 1592 #### [facility] [address] [place] [address], [place] TB2 AG MINUS NIL 0.04 IU/mL Normal [facility] Comment on above: Performed By: #### 3 1592 #### [facility] [address] [facility] [place] [address], [facility] URIC ACID BLOODon 03-11-2021 Urate [Mass/Vol] 6.1 mg/dL Normal 4.4-7.6 [facility] Comment on above: Performed By: #### 4 5506, 42333 #### [facility] [address] [place] [address], [facility] Laboratory - Chemistry and C hemistry - challengeon 06-12-2020 Albumin [Mass/Vol] 4.20 g/dL Invalid Interpretation Code 3.7-4.5 [facility] Albumin/Globulin [Mass ratio] 1.6 {ratio} Invalid Interpretation Code 1.0-2.4 [facility] ALP [Catalytic activity/Vol] 45.0 U/L Invalid Interpretation Code 31-155 [facility] ALT [Catalytic activity/Vol] 12.0 U/L Invalid Interpretation Code 0-50 [facility] Anion gap [Moles/Vol] 16 mmol/L Invalid Interpretation Code 10-20 [facility] AST [Catalytic activity/Vol] 13.0 U/L Invalid Interpretation Code 0-40 [facility] Bilirubin [Mass/Vol] 0.50 mg/dL Invalid Interpretation Code 0.0-1.0 [facility] Calcium [Mass/Vol] 9.30 mg/dL Invalid Interpretation Code 8.5-10.8 [facility] Chloride [Moles/Vol] 101.0 mmol/L Invalid Interpretation Code 100-112 [facility] Cholesterol [Mass/Vol] 242.0 mg/dL Invalid Interpretation Code 0-200 [facility] Cholesterol in HDL [Mass/Vol] 36.0 mg/dL Invalid Interpretation Code 36-100 [facility] Cholesterol in LDL [Mass/Vol] 138.0 mg/dL Invalid Interpretation Code 0-130 [facility] Cholesterol in VLDL [Mass/Vol] 68.0 mg/dL Invalid Interpretation Code 0-39 [facility] Cholesterol.total/ Cholesterol in HDL [Mass ratio] 7 {ratio} Invalid Interpretation Code [facility] CO2 [Moles/Vol] 28.0 mmol/L Invalid Interpretation Code 23-30 [facility] Creatinine [Mass/Vol] 1.10 mg/dL Invalid Interpretation Code 0.5-1.5 [facility] GFR/1.73 sq M.predicted among non-blacks MDRD (S/P/Bld) [Vol rate/Area] 72 mL/min/{1.73_m2} Invalid Interpretation Code [facility] Glucose [Mass/Vol] 94.0 mg/dL Invalid Interpretation Code 80-117 [facility] Potassium [Moles/Vol] 4.50 mmol/L Invalid Interpretation Code 3.5-5.3 [facility] Protein [Mass/Vol] 6.90 g/dL Invalid Interpretation Code 6.3-7.9 [facility] Sodium [Moles/Vol] 140.0 mmol/L Invalid Interpretation Code 135-148 [facility] Triglyceride [Mass/Vol] 340.0 mg/dL Invalid Interpretation Code 30-150 [facility] Urea nitrogen [Mass/Vol] 25.0 mg/dL Invalid Interpretation Code 7-25 [facility] Urea nitrogen/Creatinin e [Mass ratio] 23 mg/mg Invalid Interpretation Code 6-20 [facility] Laboratory - Hematology and Cell countson 06-12-2020 Erythrocyte distribution width (RBC) [Ratio] 13.40 % Invalid Interpretation Code 11.5-15.5 [facility] Hematocrit (Bld) [Volume fraction] 46.40 % Invalid Interpretation Code 37.8-51.0 [facility] Hemoglobin (Bld) [Mass/Vol] 15.70 g/dL Invalid Interpretation Code 12.6-17.0 [facility] MCH (RBC) [Entitic mass] 28.20 pg Invalid Interpretation Code 25.7-33.8 [facility] MCHC (RBC) [Mass/Vol] 33.80 g/dL Invalid Interpretation Code 32.0-36.0 [facility] MCV (RBC) [Entitic vol] 83.50 fL Invalid Interpretation Code 81.0-100.2 [facility] Platelet mean volume (Bld) [Entitic vol] 9.50 fL Invalid Interpretation Code 8.3-11.5 [facility] Platelets (Bld) [#/Vol] 215.0 10*3/uL Invalid Interpretation Code 150-400 [facility] RBC (Bld) [#/Vol] 5.560 10*6/uL Invalid Interpretation Code 4.34-5.61 [facility] WBC (Bld) [#/Vol] 5.10 10*3/uL Invalid Interpretation Code 3.9-10.3 [facility] Laboratory - Chemistry and C hemistry - challengeon 05-04-2020 Urate [Mass/Vol] 4.30 mg/dL Invalid Interpretation Code 2.4-7.0 [facility] 06-06-2019 Cholesterol [Mass/Vol] 217.0 mg/dL Invalid Interpretation Code 0-200 [facility] Cholesterol in HDL [Mass/Vol] 33.0 mg/dL Invalid Interpretation Code 36-100 [facility] Cholesterol in LDL [Mass/Vol] 106.0 mg/dL Invalid Interpretation Code 0-130 [facility] Triglyceride [Mass/Vol] 389.0 mg/dL Invalid Interpretation Code 30-150 [facility] Hematologyon 06-06-2019 Hematocrit (Bld) [Volume fraction] 44.10 % Invalid Interpretation Code 37.8-51.0 [facility] Hemoglobin (Bld) [Mass/Vol] 15.20 g/dL Invalid Interpretation Code 12.6-17.0 [facility] MCH (RBC) [Entitic mass] 28.0 pg Invalid Interpretation Code 25.7-33.8 [facility] MCV (RBC) [Entitic vol] 81.40 fL Invalid Interpretation Code 81.0-100.2 [facility] Platelets (Bld) [#/Vol] 223.0 10*3/uL Invalid Interpretation Code 150-400 [facility] RBC (Bld) [#/Vol] 5.420 10*6/uL Invalid Interpretation Code 4.34-5.61 [facility] WBC (Bld) [#/Vol] 5.90 10*3/uL Invalid Interpretation Code 3.9-10.3 [facility] Metabolic Panelon 06-06-2019 Albumin [Mass/Vol] 4.40 g/dL Invalid Interpretation Code 3.7-4.5 [facility] ALP [Catalytic activity/Vol] 46.0 U/L Invalid Interpretation Code 31-155 [facility] ALT [Catalytic activity/Vol] 23.0 U/L Invalid Interpretation Code 0-50 [facility] Anion gap [Moles/Vol] 16 mmol/L Invalid Interpretation Code 10-20 [facility] AST [Catalytic activity/Vol] 15.0 U/L Invalid Interpretation Code 0-40 [facility] Bilirubin [Mass/Vol] 0.70 mg/dL Invalid Interpretation Code 0.0-1.0 [facility] Calcium [Mass/Vol] 9.60 mg/dL Invalid Interpretation Code 8.5-10.8 [facility] Chloride [Moles/Vol] 102.0 mmol/L Invalid Interpretation Code 100-112 [facility] CO2 [Moles/Vol] 27.0 mmol/L Invalid Interpretation Code 23-30 [facility] Creatinine [Mass/Vol] 1.0 mg/dL Invalid Interpretation Code 0.5-1.5 [facility] GFR/1.73 sq M predicted among non-blacks MDRD (S/P/Bld) [Vol rate/Area] 81 mL/min/{1.73_m2} Invalid Interpretation Code [facility] Glucose [Mass/Vol] 115.0 mg/dL Invalid Interpretation Code 80-117 [facility] Potassium [Moles/Vol] 4.10 mmol/L Invalid Interpretation Code 3.5-5.3 [facility] Protein [Mass/Vol] 7.40 g/dL Invalid Interpretation Code 6.3-7.9 [facility] Sodium [Moles/Vol] 141.0 mmol/L Invalid Interpretation Code 135-148 [facility] Urea nitrogen [Mass/Vol] 20.0 mg/dL Invalid Interpretation Code 7-25 [facility] Urea nitrogen/Creatinin e [Mass ratio] 20 mg/mg Invalid Interpretation Code 6-20 [facility] Otheron 06-06-2019 Albumin/Globulin [Mass ratio] 1.5 {ratio} Invalid Interpretation Code 1.0-2.4 [facility] Cholesterol in VLDL [Mass/Vol] 78.0 mg/dL Invalid Interpretation Code 0-39 [facility] Cholesterol.total/ Cholesterol in HDL [Mass ratio] 7 {ratio} Invalid Interpretation Code [facility] Erythrocyte distribution width (RBC) [Ratio] 13.10 % Invalid Interpretation Code 11.5-15.5 [facility] MCHC (RBC) [Mass/Vol] 34.50 g/dL Invalid Interpretation Code 32.0-36.0 [facility] Platelet mean volume (Bld) [Entitic vol] 9.60 fL Invalid Interpretation Code 8.3-11.5 [facility] 02-15-2019 Cholesterol [Mass/Vol] 215.0 mg/dL Invalid Interpretation Code 0-200 [facility] Cholesterol in HDL [Mass/Vol] 34.0 mg/dL Invalid Interpretation Code 36-100 [facility] Cholesterol in LDL [Mass/Vol] 115.0 mg/dL Invalid Interpretation Code 0-130 [facility] Triglyceride [Mass/Vol] 331.0 mg/dL Invalid Interpretation Code 30-150 [facility] Hematologyon 02-15-2019 Hematocrit (Bld) [Volume fraction] 44.60 % Invalid Interpretation Code 37.8-51.0 [facility] Hemoglobin (Bld) [Mass/Vol] 15.20 g/dL Invalid Interpretation Code 12.6-17.0 [facility] MCH (RBC) [Entitic mass] 27.90 pg Invalid Interpretation Code 25.7-33.8 [facility] MCV (RBC) [Entitic vol] 81.80 fL Invalid Interpretation Code 81.0-100.2 [facility] Platelets (Bld) [#/Vol] 231.0 10*3/uL Invalid Interpretation Code 150-400 [facility] RBC (Bld) [#/Vol] 5.450 10*6/uL Invalid Interpretation Code 4.34-5.61 [facility] WBC (Bld) [#/Vol] 5.80 10*3/uL Invalid Interpretation Code 3.9-10.3 [facility] Metabolic Panelon 02-15-2019 Albumin [Mass/Vol] 4.30 g/dL Invalid Interpretation Code 3.7-4.5 [facility] ALP [Catalytic activity/Vol] 45.0 U/L Invalid Interpretation Code 31-155 [facility] ALT [Catalytic activity/Vol] 27.0 U/L Invalid Interpretation Code 0-50 [facility] Anion gap [Moles/Vol] 17 mmol/L Invalid Interpretation Code 10-20 [facility] AST [Catalytic activity/Vol] 19.0 U/L Invalid Interpretation Code 0-40 [facility] Bilirubin [Mass/Vol] 0.50 mg/dL Invalid Interpretation Code 0.0-1.0 [facility] Calcium [Mass/Vol] 9.80 mg/dL Invalid Interpretation Code 8.5-10.8 [facility] Chloride [Moles/Vol] 101 mmol/L Invalid Interpretation Code 100-112 [facility] CO2 [Moles/Vol] 29 mmol/L Invalid Interpretation Code 23-30 [facility] Creatinine [Mass/Vol] 1.10 mg/dL Invalid Interpretation Code 0.5-1.5 [facility] GFR/1.73 sq M predicted among non-blacks MDRD (S/P/Bld) [Vol rate/Area] 72 mL/min/{1.73_m2} Invalid Interpretation Code [facility] Glucose [Mass/Vol] 114.0 mg/dL Invalid Interpretation Code 80-117 [facility] Potassium [Moles/Vol] 4.7 mmol/L Invalid Interpretation Code 3.5-5.3 [facility] Protein [Mass/Vol] 7.50 g/dL Invalid Interpretation Code 6.3-7.9 [facility] Sodium [Moles/Vol] 142 mmol/L Invalid Interpretation Code 135-148 [facility] Urea nitrogen [Mass/Vol] 21.0 mg/dL Invalid Interpretation Code 7-25 [facility] Urea nitrogen/Creatinin e [Mass ratio] 19 mg/mg Invalid Interpretation Code 6-20 [facility] Otheron 02-15-2019 Albumin/Globulin [Mass ratio] 1.3 {ratio} Invalid Interpretation Code 1.0-2.4 [facility] Cholesterol in VLDL [Mass/Vol] 66.0 mg/dL Invalid Interpretation Code 0-39 [facility] Cholesterol.total/ Cholesterol in HDL [Mass ratio] 6 {ratio} Invalid Interpretation Code [facility] Erythrocyte distribution width (RBC) [Ratio] 13.0 % Invalid Interpretation Code 11.5-15.5 [facility] MCHC (RBC) [Mass/Vol] 34.10 g/dL Invalid Interpretation Code 32.0-36.0 [facility] Platelet mean volume (Bld) [Entitic vol] 9.60 fL Invalid Interpretation Code 8.3-11.5 [facility] 04-03-2018 Cholesterol [Mass/Vol] 246.0 mg/dL Invalid Interpretation Code 0-200 [facility] Cholesterol in HDL [Mass/Vol] 36.0 mg/dL Invalid Interpretation Code 36-100 [facility] Cholesterol in LDL [Mass/Vol] 136.0 mg/dL Invalid Interpretation Code 0-130 [facility] Triglyceride [Mass/Vol] 370.0 mg/dL Invalid Interpretation Code 30-150 [facility] Metabolic Panelon 04-03-2018 ALT [Catalytic activity/Vol] 17.0 U/L Invalid Interpretation Code 0-50 [facility] AST [Catalytic activity/Vol] 13.0 U/L Invalid Interpretation Code 0-40 [facility] Otheron 04-03-2018 Cholesterol in VLDL [Mass/Vol] 74.0 mg/dL Invalid Interpretation Code 0-39 [facility] Cholesterol.total/ Cholesterol in HDL [Mass ratio] 7 {ratio} Invalid Interpretation Code [facility] 11-22-2017 Cholesterol [Mass/Vol] 271.0 mg/dL Invalid Interpretation Code 0-200 [facility] Cholesterol in HDL [Mass/Vol] 43.0 mg/dL Invalid Interpretation Code 36-100 [facility] Cholesterol in LDL [Mass/Vol] 181.0 mg/dL Invalid Interpretation Code 0-130 [facility] Triglyceride [Mass/Vol] 236.0 mg/dL Invalid Interpretation Code 30-150 [facility] Hematologyon 11-22-2017 Hematocrit (Bld) [Volume fraction] 44.40 % Invalid Interpretation Code 37.8-51.0 [facility] Hemoglobin (Bld) [Mass/Vol] 15.20 g/dL Invalid Interpretation Code 12.6-17.0 [facility] MCH (RBC) [Entitic mass] 28.30 pg Invalid Interpretation Code 25.7-33.8 [facility] MCV (RBC) [Entitic vol] 82.70 fL Invalid Interpretation Code 82.0-98.4 [facility] Platelets (Bld) [#/Vol] 224.0 10*3/uL Invalid Interpretation Code 150-400 [facility] RBC (Bld) [#/Vol] 5.370 10*6/uL Invalid Interpretation Code 4.34-5.61 [facility] WBC (Bld) [#/Vol] 6.50 10*3/uL Invalid Interpretation Code 3.9-10.3 [facility] Metabolic Panelon 11-22-2017 Albumin [Mass/Vol] 4.30 g/dL Invalid Interpretation Code 3.7-4.5 [facility] ALP [Catalytic activity/Vol] 44.0 U/L Invalid Interpretation Code 31-155 [facility] ALT [Catalytic activity/Vol] 15.0 U/L Invalid Interpretation Code 0-50 [facility] Anion gap [Moles/Vol] 16 mmol/L Invalid Interpretation Code 10-20 [facility] AST [Catalytic activity/Vol] 13.0 U/L Invalid Interpretation Code 0-40 [facility] Bilirubin [Mass/Vol] 0.60 mg/dL Invalid Interpretation Code 0.0-1.0 [facility] Calcium [Mass/Vol] 9.30 mg/dL Invalid Interpretation Code 8.5-10.8 [facility] Chloride [Moles/Vol] 100 mmol/L Invalid Interpretation Code 100-112 [facility] CO2 [Moles/Vol] 30 mmol/L Invalid Interpretation Code 23-30 [facility] Creatinine [Mass/Vol] 1.10 mg/dL Invalid Interpretation Code 0.5-1.5 [facility] GFR/1.73 sq M predicted among non-blacks MDRD (S/P/Bld) [Vol rate/Area] 73 mL/min/{1.73_m2} Invalid Interpretation Code [facility] Glucose [Mass/Vol] 92.0 mg/dL Invalid Interpretation Code 80-117 [facility] Potassium [Moles/Vol] 4.1 mmol/L Invalid Interpretation Code 3.5-5.3 [facility] Protein [Mass/Vol] 7.50 g/dL Invalid Interpretation Code 6.3-7.9 [facility] Sodium [Moles/Vol] 142 mmol/L Invalid Interpretation Code 135-148 [facility] Urea nitrogen [Mass/Vol] 20.0 mg/dL Invalid Interpretation Code 7-25 [facility] Urea nitrogen/Creatinin e [Mass ratio] 18 mg/mg Invalid Interpretation Code 6-20 [facility] Otheron 11-22-2017 Albumin/Globulin [Mass ratio] 1.3 {ratio} Invalid Interpretation Code 1.0-2.4 [facility] Cholesterol in VLDL [Mass/Vol] 47.0 mg/dL Invalid Interpretation Code 0-39 [facility] Cholesterol.total/ Cholesterol in HDL [Mass ratio] 6 {ratio} Invalid Interpretation Code [facility] Erythrocyte distribution width (RBC) [Ratio] 13.40 % Invalid Interpretation Code 11.5-15.5 [facility] MCHC (RBC) [Mass/Vol] 34.20 g/dL Invalid Interpretation Code 32.0-36.0 [facility] Platelet mean volume (Bld) [Entitic vol] 7.90 fL Invalid Interpretation Code 7.4-10.4 [facility] 10-08-2014 Cholesterol [Mass/Vol] 251.0 mg/dL Invalid Interpretation Code 0-200 [facility] Cholesterol in HDL [Mass/Vol] 38.0 mg/dL Invalid Interpretation Code 36-100 [facility] Triglyceride [Mass/Vol] 446.0 mg/dL Invalid Interpretation Code 30-150 [facility] Metabolic Panelon 10-08-2014 ALT [Catalytic activity/Vol] 19.0 U/L Invalid Interpretation Code 0-50 [facility] AST [Catalytic activity/Vol] 17.0 U/L Invalid Interpretation Code 0-40 [facility] Otheron 10-08-2014 Cholesterol in VLDL [Mass/Vol] 89.0 mg/dL Invalid Interpretation Code 0-39 [facility] Cholesterol.total/ Cholesterol in HDL [Mass ratio] 7 {ratio} Invalid Interpretation Code [facility] 04-03-2014 Cholesterol [Mass/Vol] 169.0 mg/dL Invalid Interpretation Code 0-200 [facility] Cholesterol in HDL [Mass/Vol] 36.0 mg/dL Invalid Interpretation Code 36-100 [facility] Cholesterol in LDL [Mass/Vol] 84.0 mg/dL Invalid Interpretation Code 0-130 [facility] Triglyceride [Mass/Vol] 247.0 mg/dL Invalid Interpretation Code 30-150 [facility] Metabolic Panelon 04-03-2014 ALT [Catalytic activity/Vol] 23.0 U/L Invalid Interpretation Code 0-50 [facility] AST [Catalytic activity/Vol] 17.0 U/L Invalid Interpretation Code 0-40 [facility] Otheron 04-03-2014 Cholesterol in VLDL [Mass/Vol] 49.0 mg/dL Invalid Interpretation Code 0-39 [facility] Cholesterol.total/ Cholesterol in HDL [Mass ratio] 5 {ratio} Invalid Interpretation Code [facility] Urate [Mass/Vol] 5.20 mg/dL Invalid Interpretation Code 2.4-7.0 [facility] 12-27-2013 Cholesterol [Mass/Vol] 254.0 mg/dL Invalid Interpretation Code 0-200 [facility] Cholesterol in HDL [Mass/Vol] 35.0 mg/dL Invalid Interpretation Code 36-100 [facility] Triglyceride [Mass/Vol] 491.0 mg/dL Invalid Interpretation Code 30-150 [facility] Hematologyon 12-27-2013 Hematocrit (Bld) [Volume fraction] 45.90 % Invalid Interpretation Code 37.8-51.0 [facility] Hemoglobin (Bld) [Mass/Vol] 15.20 g/dL Invalid Interpretation Code 12.6-17.0 [facility] [employer] MCH (RBC) [Entitic mass] 27.40 pg Invalid Interpretation Code 25.7-33.8 [facility] [employer] MCV (RBC) [Entitic vol] 82.60 fL Invalid Interpretation Code 82.0-98.4 [employer] Platelets (Bld) [#/Vol] 226.0 10*3/uL Invalid Interpretation Code 139-350 [employer] RBC (Bld) [#/Vol] 5.550 10*6/uL Invalid Interpretation Code 4.34-5.61 [employer] WBC (Bld) [#/Vol] 5.20 10*3/uL Invalid Interpretation Code 3.9-10.3 [facility] Metabolic Panelon 12-27-2013 Albumin [Mass/Vol] 4.40 g/dL Invalid Interpretation Code 3.7-4.5 [facility] ALP [Catalytic activity/Vol] 42.0 U/L Invalid Interpretation Code 31-155 [facility] ALT [Catalytic activity/Vol] 26.0 U/L Invalid Interpretation Code 0-50 [facility] Anion gap [Moles/Vol] 16 mmol/L Invalid Interpretation Code 10-20 [facility] AST [Catalytic activity/Vol] 20.0 U/L Invalid Interpretation Code 0-40 [facility] Bilirubin [Mass/Vol] 0.80 mg/dL Invalid Interpretation Code 0.0-1.0 [facility] Calcium [Mass/Vol] 9.90 mg/dL Invalid Interpretation Code 8.5-10.8 [facility] Chloride [Moles/Vol] 100 mmol/L Invalid Interpretation Code 100-112 [facility] CO2 [Moles/Vol] 29 mmol/L Invalid Interpretation Code 23-30 [facility] Creatinine [Mass/Vol] 1.0 mg/dL Invalid Interpretation Code 0.5-1.5 [facility] GFR/1.73 sq M predicted among non-blacks MDRD (S/P/Bld) [Vol rate/Area] 83 mL/min/{1.73_m2} Invalid Interpretation Code [facility] Glucose [Mass/Vol] 99.0 mg/dL Invalid Interpretation Code 80-117 [facility] Potassium [Moles/Vol] 4.2 mmol/L Invalid Interpretation Code 3.5-5.3 [facility] Protein [Mass/Vol] 7.70 g/dL Invalid Interpretation Code 6.3-7.9 [facility] Sodium [Moles/Vol] 141 mmol/L Invalid Interpretation Code 135-148 [facility] Urea nitrogen [Mass/Vol] 18.0 mg/dL Invalid Interpretation Code 7-25 [facility] Urea nitrogen/Creatinin e [Mass ratio] 18 mg/mg Invalid Interpretation Code 6-20 [facility] Otheron 12-27-2013 Albumin/Globulin [Mass ratio] 1.3 {ratio} Invalid Interpretation Code 1.0-2.4 [facility] Cholesterol in VLDL [Mass/Vol] 98.0 mg/dL Invalid Interpretation Code 0-39 [facility] Cholesterol.total/ Cholesterol in HDL [Mass ratio] 7 {ratio} Invalid Interpretation Code [facility] Erythrocyte distribution width (RBC) [Ratio] 12.10 % Invalid Interpretation Code 11.5-15.5 [facility] MCHC (RBC) [Mass/Vol] 33.20 g/dL Invalid Interpretation Code 32.0-36.0 [facility] Platelet mean volume (Bld) [Entitic vol] 7.90 fL Invalid Interpretation Code 7.4-10.4 [facility] Vital Signs Date Time Vital Sign Value Performing Clinician Facility 11-01-2023 14:24-0500 Body height 168.91 cm [email or web address] 11-01-2023 14:24-0500 Body mass index (BMI) [Ratio] 42.69 kg/m2 [email or web address] 11-01-2023 14:24-0500 Body surface area Derived from formula 2.39 m2 [email or web address] 11-01-2023 14:24-0500 Body weight 121.79 kg Chani Anderson [facility] 11-01-2023 14:24-0500 Diastolic blood pressure 70 mm[Hg] Chani Anderson [facility] 11-01-2023 14:24-0500 Heart rate 84 /min Chani Justin [facility] 11-01-2023 14:24-0500 Systolic blood pressure 146 mm[Hg] Chani Anderson [facility] 10-11-2023 10:07-0500 Body height 168.91 cm [facility] 10-11-2023 10:07-0500 Body mass index (BMI) [Ratio] 42.5 kg/m2 [facility] 10-11-2023 10:07-0500 Body surface area Derived from formula 2.39 m2 [facility] 10-11-2023 10:07-0500 Body weight 121.25 kg [facility] 10-11-2023 10:07-0500 Diastolic blood pressure 82 mm[Hg] [facility] 10-11-2023 10:07-0500 Heart rate 68 /min [facility] 10-11-2023 10:07-0500 Systolic blood pressure 126 mm[Hg] [facility] 06-26-2023 10:15-0400 Body height 168.91 cm [facility] 06-26-2023 10:15-0400 Body mass index (BMI) [Ratio] 41.7 kg/m2 [facility] 06-26-2023 10:15-0400 Body surface area Derived from formula 2.36 m2 [facility] 06-26-2023 10:15-0400 Body weight 118.98 kg [facility] 06-26-2023 10:15-0400 Diastolic blood pressure 80 mm[Hg] [facility] 06-26-2023 10:15-0400 Heart rate 66 /min [facility] 06-26-2023 10:15-0400 Systolic blood pressure 130 mm[Hg] [facility] 12-26-2022 10:13-0500 Body height 168.91 cm [facility] 12-26-2022 10:13-0500 Body mass index (BMI) [Ratio] 42.45 kg/m2 [facility] 12-26-2022 10:13-0500 Body surface area Derived from formula 2.38 m2 [facility] 12-26-2022 10:13-0500 Body weight 121.11 kg [facility] 12-26-2022 10:13-0500 Body weight 0.1 {percentile} [facility] 12-26-2022 10:13-0500 Diastolic blood pressure 94 mm[Hg] [facility] 12-26-2022 10:13-0500 Heart rate 64 /min [facility] 12-26-2022 10:13-0500 Systolic blood pressure 136 mm[Hg] [facility] 08-04-2022 14:09-0400 Body height 168.91 cm Shea Mariano [facility] 08-04-2022 14:09-0400 Body mass index (BMI) [Ratio] 41.65 kg/m2 [facility] 08-04-2022 14:09-0400 Body surface area Derived from formula 2.36 m2 [facility] 08-04-2022 14:0400 Body weight 118.84 kg [facility] 08-04-2022 14:09-0400 Diastolic blood pressure 70 mm[Hg] [facility] 08-04-2022 14:09-0400 Heart rate 64 /min [facility] 08-04-2022 14:09-0400 Systolic blood pressure 124 mm[Hg] [facility] 06-24-2022 10:040 Body height 168.91 cm [facility] 06-24-2022 10:21-0400 Body mass index (BMI) [Ratio] 41.02 kg/m2 [facility] 06-24-2022 10:21-0400 Body surface area Derived from formula 2.34 m2 [facility] 06-24-2022 10:-040 Body weight 117.03 kg [facility] 06-24-2022 10:21-0400 Diastolic blood pressure 70 mm[Hg] Shea Ray [facility] 06-24-2022 10:21-0400 Heart rate 64 /min Shea Quintana [facility] 06-24-2022 10:21-0400 Systolic blood pressure 130 mm[Hg] Shea Quintana [facility] 05-18-2022 10:28-0400 Body height 168.91 cm Shea Ray [facility] 05-18-2022 10:28-0400 Body mass index (BMI) [Ratio] 41.26 kg/m2 Shea Mariano [facility] 05-18-2022 10:28-0400 Body surface area Derived from formula 2.35 m2 [facility] 05-18-2022 10:28-0400 Body weight 117.71 kg Shea Ray [facility] 05-18-2022 10:28-0400 Diastolic blood pressure 80 mm[Hg] Shea Mariano [facility] 05-18-2022 10:28-0400 Heart rate 60 /min Shea Mariano [facility] 05-18-2022 10:28-0400 Systolic blood pressure 134 mm[Hg] [facility] 04-18-2022 10:54-0400 Body height 168.91 cm [facility] 04-18-2022 10:54-0400 Body mass index (BMI) [Ratio] 41.34 kg/m2 [facility] 04-18-2022 10:54-0400 Body surface area Derived from formula 2.35 m2 [facility] 04-18-2022 10:54-0400 Body weight 117.94 kg [facility] 04-18-2022 10:54-0400 Diastolic blood pressure 86 mm[Hg] [facility] 04-18-2022 10:54-0400 Heart rate 84 /min [facility] 04-18-2022 10:54-0400 Systolic blood pressure 144 mm[Hg] [facility] 01-13-2022 11:30-0500 Body height 168.91 cm [facility] 01-13-2022 11:30-0500 Body mass index (BMI) [Ratio] 41.57 kg/m2 [facility] 01-13-2022 11:30-0500 Body surface area Derived from formula 2.36 m2 [facility] 01-13-2022 11:30-0500 Body weight 118.62 kg [facility] 01-13-2022 11:30-0500 Diastolic blood pressure 90 mm[Hg] [facility] 01-13-2022 11:30-0500 Heart rate 80 /min [facility] 01-13-2022 11:30-0500 Systolic blood pressure 142 mm[Hg] [facility] 07-02-2021 13:38-0400 Body height 168.91 cm [facility] 07-02-2021 13:38-0400 Body mass index (BMI) [Ratio] 40.7 kg/m2 Shea Quintana [facility] 07-02-2021 13:38-0400 Body surface area Derived from formula 2.33 m2 [facility] 07-02-2021 13:38-0400 Body weight 116.12 kg Shea Mariano [facility] 07-02-2021 13:38-0400 Diastolic blood pressure 78 mm[Hg] [facility] 07-02-2021 13:38-0400 Heart rate 76 /min [facility] 07-02-2021 13:38-0400 Systolic blood pressure 132 mm[Hg] [facility] 02-22-2021 10:12-0400 BMI (Body Mass Index) 40.09 kg/m2 Caleb Winn [facility] 02-22-2021 10:12-0400 Body weight 116.12 kg Caleb Winn [facility] 02-22-2021 10:12-0400 BP Diastolic 90 mm[Hg] Caleb [employer] 02-22-2021 10:12-0400 BP Systolic 140 mm[Hg] Caleb [employer] 02-22-2021 10:12-0400 BSA (Body Surface Area) 2.34 m2 Caleb [employer] 02-22-2021 10:12-0400 Height 170.18 cm Caleb [employer] 02-22-2021 10:12-0400 Pulse (Heart Rate) 78 /min Caleb Gooden [employer] 06-19-2020 10:33-0400 BMI (Body Mass Index) 38.49 kg/m2 Caleb Del [facility] [employer] [facility] 06-19-2020 10:330400 Body Temperature 97.6 [degF] [facility] 06-19-2020 10:33-0400 Body weight 108.18 kg Caleb Del Rio [employer] 06-19-2020 10:33-0400 BP Diastolic 84 mm[Hg] Caleb Del Rio [employer] 06-19-2020 10:33-0400 BP Systolic 128 mm[Hg] Caleb [facility] 06-19-2020 10:33-0400 BSA (Body Surface Area) 2.24 m2 Caleb Del Rio [employer] 06-19-2020 10:33-0400 Height 167.64 cm Caleb Del Rio [employer] 06-19-2020 10:33-0400 Pulse (Heart Rate) 72 /min Caleb Gooden [employer] [facility] 05-06-2020 11:24-0400 BMI (Body Mass Index) 38.98 kg/m2 Chauncey Del [facility] [employer] 05-06-2020 11:24-0400 Body Temperature 97.7 [degF] Chauncey Mayorga Del Rioherbie Gooden [employer] 05-06-2020 11:24-0400 Body weight 109.54 [facility] [employer] 05-06-2020 11:24-0400 BP Diastolic 80 mm[Hg] Chauncey Le [employer] 05-06-2020 11:24-0400 BP Systolic 144 mm[Hg] Chauncey Le [employer] 05-06-2020 11:24-0400 BSA (Body Surface Area) 2.26 m2 Chauncey Del Rio [employer] 05-06-2020 11:24-0400 Height 167.64 cm Chauncey Le [employer] 05-06-2020 11:24-0400 Pulse (Heart Rate) 84 /min Chauncey Del [facility] [employer] 01-08-2020 10:43-0500 BMI (Body Mass Index) 42.13 kg/m2 Chauncey Del [facility] [employer] 01-08-2020 10:43-0500 Body weight 118.39 kg Chauncey Le [employer] 01-08-2020 10:43-0500 BP Diastolic 88 mm[Hg] Chauncey Le [employer] 01-08-2020 10:43-0500 BP Systolic 150 mm[Hg] Chauncey Le [employer] 01-08-2020 10:43-0500 BSA (Body Surface Area) 2.35 m2 Chauncey Del Rio [employer] 01-08-2020 10:43-0500 Height 167.64 cm Chauncey Le [employer] 01-08-2020 10:43-0500 Pulse (Heart Rate) 68 /min Chauncey [facility] [employer] 09-18-2019 13:33-0500 BMI (Body Mass Index) 41.32 kg/m2 [facility] [employer] 09-18-2019 13:33-0500 Body weight 116.12 kg Caleb Del Rio [employer] 09-18-2019 13:33-0500 BP Diastolic 88 mm[Hg] Caleb Del Rio [employer] 09-18-2019 13:33-0500 BP Systolic 142 mm[Hg] Caleb Winn [employer] 09-18-2019 13:33-0500 BSA (Body Surface Area) 2.33 m2 [facility] [employer] 09-18-2019 13:33-0500 Height 167.64 cm Caleb Winn [employer] 09-18-2019 13:33-0500 Pulse (Heart Rate) 76 /min Caleb [employer] 06-19-2019 13:05-0400 BMI (Body Mass Index) 41.16 kg/m2 Mary Ellen [employer] 06-19-2019 13:05-0400 Body weight 115.67 kg Mary Ellen [employer] 06-19-2019 13:05-0400 BP Diastolic 80 mm[Hg] Mary Ellen [employer] 06-19-2019 13:05-0400 BP Systolic 124 mm[Hg] Mary Ellen Agrawal [facility] 06-19-2019 13:05-0400 BSA (Body Surface Area) 2.32 m2 Mary Ellen [employer] 06-19-2019 13:05-0400 Height 167.64 cm Mary Ellen [employer] 06-19-2019 13:05-0400 Pulse (Heart Rate) 72 /min Mary Ellen Gooden [employer] 02-21-2019 18:03-0400 BMI (Body Mass Index) 41.24 kg/m2 [facility] [employer] 02-21-2019 18:03-0400 Body weight 115.89 kg Caleb [employer] 02-21-2019 18:03-0400 BP Diastolic 82 mm[Hg] Caleb Winn [facility] 02-21-2019 18:03-0400 BP Systolic 140 mm[Hg] Caleb Winn [facility] 02-21-2019 18:03-0400 BSA (Body Surface Area) 2.32 m2 Caleb Winn [facility] 02-21-2019 18:03-0400 Height 167.64 cm Caleb Winn [employer] 02-21-2019 18:03-0400 Pulse (Heart Rate) 72 /min Caleb Gooden [employer] 02-21-2019 18:03-0400 Weight 115.89 kg Caleb Winn [facility] 12-06-2017 15:59-0500 BMI (Body Mass Index) 39.11 kg/m2 Caleb Winn [employer] 12-06-2017 15:59-0500 Body weight 109.91 kg Caleb Winn [facility] 12-06-2017 15:59-0500 BP Diastolic 80 mm[Hg] Caleb Winn [facility] 12-06-2017 15:59-0500 BP Systolic 138 mm[Hg] Caleb [employer] 12-06-2017 15:59-0500 BSA (Body Surface Area) 2.26 m2 Caleb Winn [facility] 12-06-2017 15:59-0500 Height 167.64 cm Caleb Winn [facility] 12-06-2017 15:59-0500 Pulse (Heart Rate) 80 /min Caleb Gooden [employer] 12-06-2017 15:59-0500 Weight 109.91 kg Caleb Winn [facility] 09-27-2017 17:54-0500 BMI (Body Mass Index) 37.53 kg/m2 Caleb Winn [facility] 09-27-2017 17:54-0500 Body weight 107.73 kg Caleb Winn [facility] 09-27-2017 17:54-0500 BP Diastolic 84 mm[Hg] Caleb Winn [facility] 09-27-2017 17:54-0500 BP Systolic 136 mm[Hg] Caleb Winn [facility] 09-27-2017 17:54-0500 BSA (Body Surface Area) 2.25 m2 Caleb Winn [facility] 09-27-2017 17:54-0500 Height 169.42 cm Caleb Winn [facility] 09-27-2017 17:54-0500 Pulse (Heart Rate) 84 /min Calebimmanuel Gooden [employer] 09-27-2017 17:54-0500 Weight 107.73 kg Caleb Winn [facility] 09-01-2017 17:15-0400 BMI (Body Mass Index) 37.85 kg/m2 Caleb Winn [employer] 09-01-2017 17:15-0400 Body weight 108.64 kg Caleb [employer] 09-01-2017 17:15-0400 BP Diastolic 78 mm[Hg] Caleb Winn [employer] 09-01-2017 17:15-0400 BP Systolic 124 mm[Hg] Caleb Winn [facility] 09-01-2017 17:15-0400 BSA (Body Surface Area) 2.26 m2 Caleb Winn [employer] 09-01-2017 17:15-0400 Height 169.42 cm Caleb Winn [facility] 09-01-2017 17:15-0400 Pulse (Heart Rate) 72 /min [email or web address] [email or web address] 09-01-2017 17:15-0400 Weight 108.64 kg Caleb Winn [employer] 12-07-2016 11:01-0500 BMI (Body Mass Index) 37.06 kg/m2 Caleb Iwnn [employer] 12-07-2016 11:01-0500 Body Temperature 97.2 [degF] Caleb Winn [facility] 12-07-2016 11:01-0500 Body weight 106.37 kg Caleb Winn [facility] 12-07-2016 11:01-0500 BP Diastolic 74 mm[Hg] Caleb [employer] 12-07-2016 11:01-0500 BP Systolic 122 mm[Hg] [employer] 12-07-2016 11:010500 BSA (Body Surface Area) 2.24 m2 Caleb Winn [employer] 12-07-2016 11:010500 Height 169.42 cm [facility] [employer] 12-07-2016 11:01-0500 Pulse (Heart Rate) 72 /min Caleb Gooden [employer] 12-07-2016 11:01-0500 Weight 106.37 kg C[facility] [employer] 11-20-2015 11:19-0500 BMI (Body Mass Index) 39.11 kg/m2 [facility] [employer] 11-20-2015 11:19-0500 Body weight 111.59 kg Caleb [employer] 11-20-2015 11:19-0500 BP Diastolic 80 mm[Hg] Caleb Winn [employer] 11-20-2015 11:19-0500 BP Systolic 130 mm[Hg] Caleb Winn [employer] 11-20-2015 11:19-0500 BSA (Body Surface Area) 2.29 m2 Caleb Winn [employer] 11-20-2015 11:19-0500 Height 168.91 cm Caleb Winn [facility] 11-20-2015 11:19-0500 Pulse (Heart Rate) 76 /min Caleb Gooden [employer] 11-20-2015 11:19-0500 Weight 111.59 kg Caleb Winn [facility] 10-13-2014 11:03-0500 BMI (Body Mass Index) 39.75 kg/m2 Caleb [employer] 10-13-2014 11:030500 Body weight 113.4 kg Caleb Del Rio [employer] 10-13-2014 11:03-0500 BP Diastolic 84 mm[Hg] Caleb Winn [employer] 10-13-2014 11:03-0500 BP Systolic 116 mm[Hg] Caleb Winn [facility] 10-13-2014 11:03-0500 BSA (Body Surface Area) 2.31 m2 Caleb Winn [facility] 10-13-2014 11:03-0500 Height 168.91 cm Caleb Winn [employer] 10-13-2014 11:03-0500 Pulse (Heart Rate) 76 /min Caleb Gooden [employer] 10-13-2014 11:03-0500 Weight 113.4 kg Caleb [employer] 04-09-2014 17:29-0400 BMI (Body Mass Index) 38.63 kg/m2 Caleb Winn [employer] 04-09-2014 17:29-0400 Body weight 110.22 kg Caleb Winn [employer] 04-09-2014 17:29-0400 BP Diastolic 74 mm[Hg] Caleb Winn [facility] 04-09-2014 17:29-0400 BP Systolic 110 mm[Hg] Caleb Winn [employer] 04-09-2014 17:29-0400 BSA (Body Surface Area) 2.27 m2 [employer] 04-09-2014 17:290400 Height 168.91 cm Caleb [employer] 04-09-2014 17:29-0400 Pulse (Heart Rate) 84 /min Caleb Gooden [employer] 04-09-2014 17:290400 Weight 110.22 kg Caleb [employer] 03-17-2014 13:13-0400 BMI (Body Mass Index) 39.43 kg/m2 [facility] [employer] 03-17-2014 13:13-0400 Body weight 112.49 kg Caleb [employer] 03-17-2014 13:13-0400 BP Diastolic 82 mm[Hg] [facility] [employer] 03-17-2014 13:13-0400 BP Systolic 138 mm[Hg] [facility] [employer] 03-17-2014 13:13-0400 BSA (Body Surface Area) 2.3 m2 [facility] [employer] 03-17-2014 13:130400 Height 168.91 cm [facility] [employer] 03-17-2014 13:13-0400 Pulse (Heart Rate) 84 /min Caleb Gooden [employer] 03-17-2014 13:130400 Weight 112.49 kg Caleb Winn [facility] 01-06-2014 17:34-0500 BMI (Body Mass Index) 39.91 kg/m2 Caleb Winn [facility] 01-06-2014 17:34-0500 Body weight 113.85 kg Caleb Winn [facility] 01-06-2014 17:34-0500 BP Diastolic 82 mm[Hg] Caleb Winn [facility] 01-06-2014 17:34-0500 BP Systolic 134 mm[Hg] Caleb Winn [facility] 01-06-2014 17:34-0500 BSA (Body Surface Area) 2.31 m2 Caleb [employer] 01-06-2014 17:34-0500 Height 168.91 cm Caleb [employer] 01-06-2014 17:34-0500 Pulse (Heart Rate) 80 /min Caleb Winn [facility] [employer] 01-06-2014 17:34-0500 Weight 113.85 kg Caleb [employer] 06-05-2013 18:00-0400 BMI (Body Mass Index) 38.37 kg/m2 Caleb [employer] 06-05-2013 18:00-0400 Body weight 111.13 kg Caleb [employer] 06-05-2013 18:00-0400 BP Diastolic 78 mm[Hg] [employer] 06-05-2013 18:00-0400 BP Systolic 132 mm[Hg] [employer] 06-05-2013 18:00-0400 BSA (Body Surface Area) 2.29 m2 [employer] 06-05-2013 18:00-0400 Height 170.18 cm [employer] 06-05-2013 18:00-0400 Pulse (Heart Rate) 80 /min Caleb Winn [facility] 06-05-2013 18:00-0400 Weight 111.13 kg Caleb Winn [facility] Encounters Encounter Date Encounter Type Care Provider Facility Start: 11-01-2023 [facility] Chani Oglesby rne Other [facility] Start: 10-23-2023 End: 10-24-2023 ambulatory Shea Quintana MD Facility:[facility] Start: 10-11-2023 Office outpatient vi sit 25 minutes Shea J Ray Other [facility] Start: 10-03-2023 Lab Shea J Ray Other [facility] Start: 06-26-2023 Patient encounter procedure Shea Quintana [facility] Start: 06-26-2023 Periodic preventive med est patient 40-64yrs Shea J Ray Other [facility] Start: 06-21-2023 Lab Shea J Ray Other [facility] Start: 12-26-2022 Office outpatient vi sit 25 minutes Shea J Ray Other [facility] Start: 12-19-2022 Lab Shea J Ray Other [facility] Start: 11-02-2022 End: 11-03-2022 ambulatory Shea Quintana MD Facility:[facility] Start: 08-04-2022 Office outpatient vi sit 25 minutes Shea J Ray Other [facility] Start: 07-20-2022 Office Services Shea J Ray Other [facility] Start: 07-13-2022 Lab Shea J Ray Other [facility] Start: 06-24-2022 Encounter for genera l adult medical examination without abnormal findings Shea Quintana [facility] Start: 06-24-2022 Patient encounter procedure Shea Quintana [facility] Start: 06-24-2022 Periodic preventive med est patient 40-64yrs Shea J Ray Other [facility] Start: 06-20-2022 Lab Shea J Ray Other [facility] Start: 06-07-2022 Encounter for genera l adult medical examination without abnormal findings Shea Quintana [facility] Start: 05-18-2022 Office outpatient vi sit 15 minutes Shea J Ray Other [facility] Start: 04-18-2022 Office outpatient vi sit 15 minutes Shea J Ray Other [facility] Start: 01-13-2022 Office outpatient vi sit 15 minutes Shea J Ray Other [facility] Start: 01-07-2022 Lab Shea J Ray Other [facility] Start: 07-02-2021 Patient encounter procedure Shea Quintana [facility] Start: 07-02-2021 Periodic preventive med est patient 40-64yrs Shea Calos Ray Other [facility] Start: 06-18-2021 End: 06-18-2021 Lab Shea J Ray Other [facility] Start: 05-25-2021 Encounter for genera l adult medical examination without abnormal findings Caleb Winn [facility] Start: 02-22-2021 Office outpatient vi sit 15 minutes Caleb Winn Other [facility] Start: 06-19-2020 Patient encounter procedure Caleb Winn [facility] Start: 06-19-2020 Periodic preventive med est patient 40-64yrs Calebimmanuel Winn Other [facility] Start: 06-12-2020 Lab Mark Becerra Other [facility] Start: 05-06-2020 Office outpatient vi sit 15 minutes Chauncey Mayorga Other [facility] Start: 05-04-2020 Lab Chauncey puga Other [facility] Start: 03-13-2020 Office outpatient vi sit 15 minutes Caleb Winn Other [facility] Start: 01-08-2020 Office outpatient vi sit 15 minutes Chauncey Mayorga Other [facility] Start: 12-20-2019 Encounter for genera l adult medical examination without abnormal findings [facility] [employer] Start: 12-20-2019 Routine general medi alverto examination at a health care facility [employer] Start: 09-18-2019 Office outpatient vi sit 15 minutes Caleb Winn Other [facility] Office Start: 06-26-2019 Office outpatient ne w 30 minutes Chauncey Lucia Other [facility] Office Start: 06-19-2019 Office outpatient vi sit 15 minutes Mary Ellen Agrawal Other [facility] Office Start: 06-06-2019 Lab Mary Ellen Phillips ams Other [facility] Office Start: 05-23-2019 Encounter for genera l adult medical examination without abnormal findings [facility]aleb [employer] Start: 05-23-2019 Routine general medi alverto examination at a health care facility [employer] Start: 02-21-2019 Patient encounter procedure [facility]aleb [employer] Start: 02-21-2019 Periodic preventive med est patient 40-64yrs Caleb Winn Other [facility] Office Start: 02-15-2019 Lab Caleb landaverde Other [facility] Office Start: 01-23-2019 Encounter for genera l adult medical examination without abnormal findings Caleb Winn [facility] Start: 01-23-2019 Routine general medi alverto examination at a health care facility Caleb Winn [facility] Start: 04-03-2018 Lab Caleb Keller s Other [facility] Start: 12-06-2017 Patient encounter procedure Caleb Winn [facility] Start: 12-06-2017 Periodic preventive med est patient 40-64yrs Caleb Winn Other [facility] Start: 11-22-2017 Lab Caleb Keller s Other [facility] Start: 10-25-2017 Encounter for genera l adult medical examination without abnormal findings Caleb Winn [facility] Start: 10-25-2017 Routine general medi alverto examination at a health care facility Caleb Winn [facility] Start: 09-27-2017 Office outpatient vi sit 15 minutes Mary Ellen Agrawal Other [facility] Start: 09-01-2017 Office outpatient vi sit 15 minutes Mary Ellen Agrawal Other [facility] Start: 12-07-2016 Office outpatient vi sit 15 minutes Mary Ellen Agrawal Other [facility] Start: 11-20-2015 Office outpatient vi sit 10 minutes Caleb Vicky Kellers Other [facility] Start: 10-13-2014 Office Services Caleb D [...] at a health care facility Caleb Winn [facility] Start: 01-06-2014 Office Services Caleb landaverde Other [facility] Start: 12-27-2013 Lab Caleb landaverde Other [facility] Start: 12-13-2013 Routine general medi alverto examination at [facility] Start: 06-05-2013 Office Services Laura arcos Other [...] Ray Start: 01-13-2022 Docrev cur meds by [facility] Shea Ray Start: 01-02-2022 Comprehensive [...] Start: 02-11-2015 Alanine aminotransfe rase measurement Caleb Wnin Start: 02-11-2015 Aspartate aminotrans ferase measurement Caleb [...] metabolic panel CMP (comprehensive metabolic panel) [facility] Start: 01-11-2024 Hemoglobin glycosylated a1c HEMOGLOBIN A1C [facility] Start: 01-11-2024 Lipid panel LIPID PROFILE [facility] Start: 09-26-2023 Comprehensive metabolic panel Comp [employer] [employer] Start: 09-26-2023 Hemoglobin glycosylated a1c A1c [employer] [facility] [employer] Start: 06-25-2023 Hemoglobin glycosylated a1c Hgb A1C (glycated hemoglobin) [employer] [facility] Start: 06-24-2023 Blood count complete automated CBC & PLATELET COUNT; AUTOMATED [employer] [facility] Start: 06-24-2023 Comprehensive metabolic panel Comprehensive metabolic panel [facility] Start: 06-24-2023 Lipid panel Lipid panel [facility] Start: 06-24-2023 Urnls dip stick/tablet rgnt auto w/o microscopy Urinalysis auto [facility] Start: 02-01-2023 Hemoglobin glycosylated a1c Hgb A1C (glycated hemoglobin) [facility] Start: 12-25-2022 Basic metabolic panel calcium total Chem 8 [facility] Start: 12-25-2022 Hemoglobin glycosylated a1c A1c [facility] Start: 12-25-2022 Lipid panel Lipid panel [facility] Start: 07-16-2022 Comprehensive metabolic panel CMP (comprehensive metabolic panel) [facility] Start: 07-16-2022 Hemoglobin glycosylated a1c A1c [facility] Start: 07-16-2022 Lipid panel LIPID PROFILE [facility] Start: 06-17-2022 Blood count complete automated CBC & PLATELET COUNT; AUTOMATED [facility] Start: 06-17-2022 Comprehensive metabolic panel Comprehensive metabolic panel [facility] Start: 06-17-2022 Lipid panel Lipid panel [facility] Start: 06-17-2022 Urnls dip stick/tablet rgnt auto w/o microscopy Urinalysis auto [facility] Start: 01-02-2022 Comprehensive metabolic panel Comp [facility] Start: 01-02-2022 Lipid panel Lipid panel [facility] Start: 06-18-2021 Blood count complete automated CBC & PLATELET COUNT; AUTOMATED [facility] Start: 06-18-2021 Comprehensive metabolic panel CMP [facility] Start: 06-18-2021 Lipid panel Lipid panel [facility] Start: 06-18-2021 Urnls dip stick/tablet rgnt auto w/o microscopy Urinalysis auto [facility] Start: 06-12-2020 Blood count complete automated CBC & PLATELET COUNT; AUTOMATED [facility] Start: 06-12-2020 Comprehensive metabolic panel Comprehensive metabolic panel [facility] Start: 06-12-2020 Lipid panel Lipid panel [facility] Start: 06-12-2020 Urnls dip stick/tablet rgnt auto w/o microscopy Urinalysis auto [facility] Start: 05-08-2020 Assay of blood/uric acid ASSAY OF BLOOD/URIC ACID [facility] Start: 05-08-2020 Urate [Mass/Vol] Uric acid, serum [facility] Start: 09-18-2019 Cell count misc body fluids w/differential count Cell count + diff body fluid [facility] Start: 09-18-2019 X-ray of left knee KNEE XRAY 1 OR 2 VIEWS [facility] Start: 07-25-2019 Blood count complete automated CBC & PLATELET COUNT; AUTOMATED [facility] Start: 06-06-2019 Comprehensive metabolic panel CMP [facility] Start: 06-06-2019 Lipid panel Lipid panel [facility] Start: 06-06-2019 Urnls dip stick/tablet rgnt auto w/o microscopy Urinalysis auto [facility] Start: 02-15-2019 Urnls dip stick/tablet rgnt auto w/o microscopy Urinalysis auto [facility] BUE EMG/NCS eval numbness [facility] Immunizations Immunization Date Immunization Notes Care Provider [facility] 10-13-2014 hepatitis A and hepa titis B vaccine; Translations: [IMMUNIZATION ADMIN] Caleb Winn [facility] 10-13-2014 influenza virus vacc ine, unspecified formulation; Translations: [FLU VACCINE 3 YRS & > IM] [facility] 10-13-2014 influenza, seasonal, injectable; Translations: [FLU VACCINE 3 YRS & > IM] [facility] 03-17-2014 vaccinia (smallpox) vaccine; Translations: [THER/PROPH/DIAG INJ SC/IM] [facility] Payers Date Payer Category Payer Unknown 1975 Unknown [id number] 1975 Unknown [id number] 1975 Unknown [id number] Unknown [id number] Unknown [id number] Unknown [id number] 2. [id number] Unknown [id number] 2. [id number] Social History Date Type Detail Facility Start: Never smoker [facility] Start: [facility] Summary Purpose Family History No Family History Records FoundNo Family History Records Found Advance Directives No Advanced Directives Records FoundNo Advanced Directives Records Found Additional Source Comments (unrecognized sect ion and content) No Status Records FoundNo Status Records Found INFORMATION SOURCE (unrecogn ized section and content) DATE CREATED AUTHOR 03/11/2022 [facility] DATE CREATED AUTHOR 'S ORGANIZ ATION 10/31/2023 [facility] FOR RECORDS PERTAINING TO PATIENTS WHO ARE [...] BE BASED ON THE PRIMARY CLINICAL RECORDS. [facility] [employer] [facility]. provides no warranty or guarantee of the accuracy or completeness of information in this document.
[2023-12-18 12:29] VITALS: BP 141/85; PULSE 72; RESP 18; TEMP 36.1; O2SAT 98; BMI 42.5
[2023-12-18] MEDS: LACTATED RINGER'S SOLUTION 1,000 ML 50 ML IV (12:48)
[2023-12-18] MEDS: FAMOTIDINE/PF 20 MG/2 ML VIAL IV (12:49)
[2023-12-18] MEDS: CEFAZOLIN SODIUM/DEXTROSE,ISO 2 GM/50 ML PIGGYBACK IV (13:07)
[2023-12-18] MEDS: LIDOCAINE HCL 1%-EPINEPHRINE 1:100,000 10 ML MDV 5 ML INJ (13:18)
[2023-12-18] MEDS: BUPIVACAINE HCL 0.5% PF 50 MG/10 ML VIAL 5 ML INJ (13:18)
[2023-12-18 13:47] VITALS: TEMP 36.1
[2023-12-18 14:02] VITALS: BP 146/92; PULSE 80; RESP 16; O2SAT 95
--- NOTE | 2023-12-18 14:12 | P.ORPRC_ITS ---
Procedure Note Date of procedure: 12/18/23 Pre-op diagnosis: Right carpal tunnel syndrome Post-op diagnosis: same as pre-op Procedure: Preoperative Diagnosis: Right carpal tunnel syndrome Postoperative Diagnosis: Same Procedure: Right endoscopic carpal tunnel release Surgeon: Jin Anesthesia: Local with MAC Estimated blood loss:Minimal Tourniquet time: 5 Minutes at 250 mmHg Complications: None Indications for Surgery: The patient has had signs and symptoms of carpal tunnel syndrome that have failed conservative treatment. Options were discussed with the patient as well as risks and benefits and they have elected to proceed with the surgery. Operative procedure: Prior to surgery the patient received IV antibiotics. The operative extremity was marked preoperatively. After informed consent was obtained the patient was brought to the operating room where MAC anesthesia was administered. Preoperatively 5 mm 0.5% Marcaine plain with 5 mm 1% lidocaine with epinephrine were infiltrated in the operative sight. The arm was then prepped and draped in the usual sterile fashion after placement of a well padded tourniquet. The arm was elevated, exsanguinated, and the tourniquet was inflated. A 1 cm incision was then made in a preexisting distal wrist crease. Hemostasis was achieved with bipolar electrocautery. Blunt dissection was then carried down to the forearm fascia where a U-based flap was created. Proximally the fascia was inc ised for 2 cm under direct visualization. Attention was then turned to the endoscopic carpal tunnel release. The synovial elevator was used to clear the underside of the transverse carpal ligament of soft tissue. Sequential dilators were then placed. The endoscopic carpal tunnel released instrument was then placed. The transverse fibers were then identified and release from distal to proximal. The ligament was completely release. The tourniquet was deflated and hemostasis was achieved. The wound was irrigated and closed with a nylon suture. A sterile dressing was placed. The patient was brought to the recovery room. There were no preoperative or postoperative complications. Anesthesia: MAC and local Surgeon: Del Abdi Estimated blood loss (mL): 1 Pathology: none sent Condition: stable Disposition: PACU
[2023-12-18 14:17] VITALS: BP 136/70; PULSE 76; RESP 16; O2SAT 96
== END 2023-12-18 14:17 | disposition home or self-care (01) ==
PROVIDERS: PCP Internal Medicine; Visit Provider Orthopaedic Surgery
PROC: (CPT 1810; principal; 2023-12-18 13:00)
DX: G56.02 Carpal tunnel syndrome, left upper limb (principal); G47.33 Obstructive sleep apnea (adult) (pediatric); E78.5 Hyperlipidemia, unspecified; E66.01 Morbid (severe) obesity due to excess calories; F41.9 Anxiety disorder, unspecified; M10.9 Gout, unspecified; Z68.41 Body mass index [BMI] 40.0-44.9, adult
CPT/HCPCS: 29848; J0131; J0665; J0690; J1885; J2250; J2405; J2704; J3010